=== PATIENT | female | born 1940 | race Caucasian/White ===

== ENCOUNTER 2022-12-29 13:21 | Emergency (ER) | payer MEDICARE, SELFPAY ==
[2022-12-29 13:32] VITALS: BP 143/92; PULSE 87; RESP 16; TEMP 36.8; O2SAT 100; BMI 20.4
--- NOTE | 2022-12-29 13:42 | DI.RAD.S_ITS ---
PROCEDURE: XR ACUTE ABDOMEN SERIES INDICATIONS: constipation TECHNIQUE: One view chest and two views of the abdomen were acquired. COMPARISON: None. FINDINGS: Surgical changes and devices: Surgical clips are seen projecting over the right upper quadrant. Chest: Lungs are clear. Heart size is normal. No pleural effusions. No pneumoperitoneum. Abdomen: Bowel gas pattern is normal. Mild colonic stool. Nonspecific 3 mm calcification projecting over the right abdomen, and a renal calculus is not excluded. Visualized solid organ contours appear normal. Bones: No suspicious bony lesions. Degenerative changes are noted in the spine. IMPRESSION: 1. Nonobstructed bowel gas pattern. No pneumoperitoneum. Mild colonic stool. 2. Right abdominal 3 mm calcification is noted of uncertain etiology. A small renal calculus is not excluded. Approved by: Edison Cooper M.D. on 12/29/2022 at 15:10
--- NOTE | 2022-12-29 16:21 | PC.NURSE ---
daughter called to reports her mom was changing her diarrhea brief in the bathroom and had a near syncopal event. pt was pale when I arrived. pt bought back and on stretcher with manager cardiac, vital signs.
--- NOTE | 2022-12-29 16:51 | DI.RAD.S_ITS ---
PROCEDURE: XR CHEST 1V INDICATIONS: chest pain TECHNIQUE: One view of the chest was acquired. COMPARISON: None. FINDINGS: Surgical changes and devices: None. Lungs and pleura: Lungs are clear. No pleural effusions or pneumothorax. Mediastinum: Mediastinal contours appear normal. Heart size is normal. Bones and chest wall: No suspicious bony lesions. Overlying soft tissues appear unremarkable. IMPRESSION: No acute process. Dictated by: Janett Burgess M.D. on 12/29/2022 at 17:51 Approved by: Janett Burgess M.D. on 12/29/2022 at 17:52
[2022-12-29 17:24] VITALS: BP 153/65; PULSE 78; RESP 23; O2SAT 98
[2022-12-29 17:31] VITALS: BP 136/78; PULSE 81; RESP 16; O2SAT 96
[2022-12-29 17:32] LABS: Add Manual Diff / Slide Review NO; Basophils Absolute Auto 0 /uL (0-100); Basophils Percent Auto 0.2 % (0-2); Eosinophils Absolute Auto 0 /uL (0-450); Eosinophils Percent Auto 0.2 % (2-4); Hematocrit 28.8 % (36-46); Hemoglobin 9.8 g/dL (12.0-16.0); INR 1.2 (0.9-1.3); Lymphocytes Absolute Auto 500 /uL (1100-4500); Lymphocytes Percent Auto 5.4 % (25-40); Mean Corpuscular Hemoglobin 41.7 PG (26-34); Mean Corpuscular Volume 122.9 fL (80-100); Monocytes Absolute Auto 500 /uL (0-900); Monocytes Percent Auto 4.8 % (3-14); Neutrophils Absolute Auto 8800 /uL (1500-7000); Neutrophils Percent Auto 89.4 % (50-75); Platelet Count 166 X10^3/uL (150-400); Prothrombin Time 13.7 SECONDS (10.1-12.7); Red Blood Cell Count 2.34 X10^6/uL (4.0-5.2); White Blood Cell Count 9.8 X10^3/uL (4.5-11.0)
[2022-12-29 17:35] LABS: PTT Partial Thromboplastin Tim 27 SECONDS (26-36)
[2022-12-29 17:36] LABS: Alanine Aminotransferase 14 IU/L (<35); Albumin 3.8 g/dL (3.5-5.0); Albumin Globulin Ratio 1.5 (1.0-2.8); Alkaline Phosphatase 76 U/L (38-126); Aspartate Aminotransferase 25 IU/L (14-36); BUN Creatinine Ratio 21.1 (6-22); Bilirubin Total 1.6 mg/dL (0.2-1.3); Blood Urea Nitrogen 12 mg/dL (7-17); Calcium 8.8 mg/dL (8.4-10.2); Carbon Dioxide 26 mmol/L (22-32); Chloride 102 mmol/L (98-107); Creatine Kinase 37 U/L (30-135); Estimated Glomerular Filt Rate > 60 mL/min (>60); Globulin 2.5 g/dL (1.7-4.1); Glucose 111 mg/dL (80-110); HEMOLYSIS < 15 (0-50); Lipase 81 U/L (23-300); Magnesium 1.7 mg/dL (1.6-2.3); Potassium 3.8 mmol/L (3.4-5.1); Sodium 133 mmol/L (137-145); Total Protein 6.3 g/dL (6.3-8.2)
[2022-12-29 17:43] LABS: Poikilocytosis 1+
[2022-12-29 17:44] LABS: Anisocytosis 2+; Macrocytosis 2+
[2022-12-29 17:46] LABS: Schistocytes 1+
[2022-12-29 17:48] LABS: Troponin I < 0.012 ng/mL (0.01-0.034)
[2022-12-29 18:00] VITALS: BP 152/67; PULSE 90; RESP 18; O2SAT 96
--- NOTE | 2022-12-29 18:09 | ED_ITS ---
HPI - Abdominal Pain General Chief Complaint: Abdominal Pain Stated Complaint: Thinks impaction Time Seen by Provider: 12/29/22 17:56 Source: patient Mode of arrival: Ambulatory History of Present Illness HPI narrative: Patient is a 82-year-old female who has some mild chronic constipation. She reports that she usually takes MiraLax daily for it however over the past 2-3 weeks she has not been as compliant as she normally is. She has been feeling like she has to have a bowel movement she took some Senokot she said suppository she is had some liquid stool coming around but she still feels like the area is hard pressure and impaction in her rectum. Today she vomited a couple of times as well. She denies any abdominal pain or cramping. She was in the restroom in the emergency department trying to go when she got very dizzy lightheaded and almost passed out however she did not. She did not hit her head or lose consciousness. She does take a baby aspirin daily. She reports that she has had multiple full diapers of liquid stool but she does not feel like her symptoms have improved she denies chest pain palpitations dizziness lightheadedness fever chills or other symptoms. Related Data Allergies Allergy/AdvReac Type Severity Reaction Status Date / Time azithromycin Allergy Verified 12/29/22 13:32 [From Zithromax Z-Anthony] clarithromycin [From Biaxin] Allergy Verified 12/29/22 13:32 Iodinated Contrast Media Allergy Verified 12/29/22 13:32 Penicillins Allergy Verified 12/29/22 13:32 Sulfa (Sulfonamide Allergy Verified 12/29/22 13:32 Antibiotics) Review of Systems Review of Systems ROS Unobtainable: All systems reviewed & are unremarkable except as noted in HPI and below Patient History Social History Smoking Status: Never smoker Smoking Status: Never smoker Substance Use Type: does not use Exam Initial Vital Signs Initial Vital Signs: Vital Signs Temperature 98.2 F 12/29/22 13:32 Pulse Rate 87 12/29/22 13:32 Respiratory Rate 16 12/29/22 13:32 Blood Pressure 143/92 H 12/29/22 13:32 Pulse Oximetry 100 12/29/22 13:32 Oxygen Delivery Method 12/29/22 13:32 GENERAL: Alert pleasant embarrassed 82-year-old female HEENT: Head atraumatic,EOMI, pupils reactive, face symmetric, moist mucous membranes CARDIOVASCULAR: Regular rate and rhythm without murmurs, rubs or gallops. RESPIRATORY: Breath sounds equal bilaterally, no wheezes rales or rhonchi. ABDOMEN: Soft, nontender. Normoactive bowel sounds all 4 quadrants. No guarding or rebound. RECTAL: Nonbloody stool in rectal vault : No CVA tenderness EXTREMITIES: Normal range of motion, no clubbing or edema. Neurovascularly intact NEUROLOGICAL: Alert and oriented x4. Moving all extremities SKIN: Warm, dry, no laceration, no petechiae, no rashes or lesions. Course Orders Ordered: ED Orders 12/29/22 13:42 XR acute abdomen series Stat 12/29/22 16:51 XR chest 1V Stat 12/29/22 17:11 Complete Blood Count AUTO DIFF Stat Comprehensive Metabolic Panel Stat Lipase Stat Magnesium Stat Partial Thromboplastin Time Stat Prothrombin Time INR Stat Troponin & CK Cardiac Panel Stat 12/29/22 17:12 EKG-12 Lead Stat 12/29/22 17:56 Lactate (Lactic Acid) Stat Procalcitonin Stat Vital Signs Vital signs: Vital Signs - 8 hr 12/29/22 13:32 12/29/22 17:24 Temperature 98.2 F Pulse Rate 87 78 Respiratory Rate 16 23 Blood Pressure 143/92 H 153/65 H Pulse Oximetry 100 98 Oxygen Delivery Method Room Air Room Air MDM - Abdominal Pain Lab Data 12/29/22 17:11 12/29/22 17:11 Labs: Lab Results 12/29/22 12/29/22 12/29/22 Range/Units 17:11 17:11 17:11 WBC 9.8 (4.5-11.0) X10^3/uL RBC 2.34 L (4.0-5.2) X10^6/uL Hgb 9.8 L (12.0-16.0) g/dL Hct 28.8 L (36-46) % MCV 122.9 H (80-100) fL MCH 41.7 H (26-34) PG MCHC 34.0 (30-36) % RDW 19.0 H (11.6-14.8) % Plt Count 166 (150-400) X10^3/uL Neut % (Auto) 89.4 H (50-75) % Lymph % (Auto) 5.4 L (25-40) % [place] % (Auto) 4.8 (3-14) % Eos % (Auto) 0.2 L (2-4) % Baso % (Auto) 0.2 (0-2) % Neut # (Auto) 8800 H (5492-9979) /uL Lymph # (Auto) 500 L (1388-4122) /uL [place] # (Auto) 500 (0-900) /uL Eos # (Auto) 0 (0-450) /uL Baso # (Auto) 0 (0-100) /uL RBC Morphology See below Poikilocytosis 1+ H Anisocytosis 2+ H Macrocytosis 2+ H Schistocytes 1+ H PT 13.7 H (10.1-12.7) SECONDS INR 1.2 (0.9-1.3) APTT 27 (26-36) SECONDS Sodium 133 L (137-145) mmol/L Potassium 3.8 (3.4-5.1) mmol/L Chloride 102 (98-107) mmol/L Carbon Dioxide 26 (22-32) mmol/L BUN 12 (7-17) mg/dL Creatinine 0.57 (0.52-1.04) mg/dL Estimated GFR > 60 (>60) mL/min BUN/Creatinine Ratio 21.1 (6-22) Glucose 111 H (80-110) mg/dL Lactate (0.7-2.1) mmol/L Calcium 8.8 (8.4-10.2) mg/dL Magnesium 1.7 (1.6-2.3) mg/dL Total Bilirubin 1.6 H (0.2-1.3) mg/dL AST 25 (14-36) IU/L ALT 14 (<35) IU/L Alkaline Phosphatase 76 (38-126) U/L Total Creatine Kinase 37 (30-135) U/L CK-MB (CK-2) TNP CK-MB (CK-2) Rel Index TNP Troponin I < 0.012 (0.01-0.034) ng/mL Total Protein 6.3 (6.3-8.2) g/dL Albumin 3.8 (3.5-5.0) g/dL Globulin 2.5 (1.7-4.1) g/dL Albumin/Globulin Ratio 1.5 (1.0-2.8) Lipase 81 (23-300) U/L Procalcitonin (<0.5) ng/mL 12/29/22 12/29/22 Range/Units 17:11 17:11 WBC (4.5-11.0) X10^3/uL RBC (4.0-5.2) X10^6/uL Hgb (12.0-16.0) g/dL Hct (36-46) % MCV (80-100) fL MCH (26-34) PG MCHC (30-36) % RDW (11.6-14.8) % Plt Count (150-400) X10^3/uL Neut % (Auto) (50-75) % Lymph % (Auto) (25-40) % [place] % (Auto) (3-14) % Eos % (Auto) (2-4) % Baso % (Auto) (0-2) % Neut # (Auto) (2395-6118) /uL Lymph # (Auto) (3008-1737) /uL [place] # (Auto) (0-900) /uL Eos # (Auto) (0-450) /uL Baso # (Auto) (0-100) /uL RBC Morphology Poikilocytosis Anisocytosis Macrocytosis Schistocytes PT (10.1-12.7) SECONDS INR (0.9-1.3) APTT (26-36) SECONDS Sodium (137-145) mmol/L Potassium (3.4-5.1) mmol/L Chloride (98-107) mmol/L Carbon Dioxide (22-32) mmol/L BUN (7-17) mg/dL Creatinine (0.52-1.04) mg/dL Estimated GFR (>60) mL/min BUN/Creatinine Ratio (6-22) Glucose (80-110) mg/dL Lactate 1.4 (0.7-2.1) mmol/L Calcium (8.4-10.2) mg/dL Magnesium (1.6-2.3) mg/dL Total Bilirubin (0.2-1.3) mg/dL AST (14-36) IU/L ALT (<35) IU/L Alkaline Phosphatase (38-126) U/L Total Creatine Kinase (30-135) U/L CK-MB (CK-2) CK-MB (CK-2) Rel Index Troponin I (0.01-0.034) ng/mL Total Protein (6.3-8.2) g/dL Albumin (3.5-5.0) g/dL Globulin (1.7-4.1) g/dL Albumin/Globulin Ratio (1.0-2.8) Lipase (23-300) U/L Procalcitonin 0.05 (<0.5) ng/mL Imaging Data Abdominal x-ray: Radiologist's Impression: [place] [address] XRay Report Signed Patient: Mima Escalante MR#: [id number] : 1940 Acct:[id number] Age/Sex: 82 / F Date of Service: 12/29/22 Loc: ED Accession Number: [id number] ?? Procedure: XR acute abdomen series Ordering Provider: Jose Medellin MD PROCEDURE:? XR ACUTE ABDOMEN SERIES ? INDICATIONS:? constipation ? TECHNIQUE:? One view chest and two views of the abdomen were acquired.? ? COMPARISON:? None. ? FINDINGS:? ? Surgical changes and devices:? Surgical clips are seen projecting over the right upper quadrant. ? Chest:? Lungs are clear.? Heart size is normal.? No pleural effusions.? No pneumoperitoneum.? ? Abdomen:? Bowel gas pattern is normal.? Mild colonic stool.? Nonspecific 3 mm calcification projecting over the right abdomen, and a renal calculus is not excluded.? Visualized solid organ contours appear normal.? ? Bones:? No suspicious bony lesions.? Degenerative changes are noted in the spine. ? IMPRESSION:? 1. Nonobstructed bowel gas pattern.? No pneumoperitoneum.? Mild colonic stool. 2. Right abdominal 3 mm calcification is noted of uncertain etiology.? A small renal calculus is not excluded. ? ? ? Approved by: Edison Cooper M.D. on 12/29/2022 at 15:10? Chest x-ray: Radiologist's Impression: Signed Patient: Mima Escalante MR#: [id number] : 1940 Acct:[id number] Age/Sex: 82 / F Date of Service: 12/29/22 Loc: ED Accession Number: [id number] ?? Procedure: XR chest 1V Ordering Provider: Jose Medellin MD PROCEDURE:? XR CHEST 1V ? INDICATIONS:? chest pain ? TECHNIQUE:? One view of the chest was acquired.? ? COMPARISON:? None. ? FINDINGS:? ? Surgical changes and devices:? None.? ? Lungs and pleura:? Lungs are clear.? No pleural effusions or pneumothorax.? ? Mediastinum:? Mediastinal contours appear normal.? Heart size is normal.? ? Bones and chest wall:? No suspicious bony lesions.? Overlying soft tissues appear unremarkable.? ? IMPRESSION:? No acute process. ? ? Dictated by: Janett Burgess M.D. on 12/29/2022 at 17:51 ? ? Approved by: Janett Burgess M.D. on 12/29/2022 at 17:52 ? ECG Data Interpretation: Sinus rhythm rate 79 VA 134 QRS 74 QTC 460 frequent PVCs noted with ischemic changes no ST elevation T-wave inversions no priors to compare MDM Narrative Medical decision making narrative: Patient 82-year-old female history of mild chronic constipation presenting with fecal impaction. She tried multiple things at home she did have some liquid stool. X-ray does not show large amount of stool bowel obstruction or pneumoperitoneum. Exam is positive for fecal impaction and constipation. Patient was manually disimpacted by myself and had a large successful bowel movement. Feeling significantly better. She did have a brief near syncopal episode in a emergency department. EKG is reassuring she is on the monitor. Possibly secondary to vasovagal and bearing down. Blood work does reveal that she is mildly anemic with a hemoglobin of 9.8 and hematocrit 20.88 with MCV of 122.9. Electrolytes and creatinine are overall reassuring. Lactate of 0.4. Slight elevation in bilirubin 1.6 but no other evidence sepsis and she is no ri ght upper quadrant pain. At this time patient requires no further intervention. Diagnosis rectal impaction Differential diagnosis: Rectal impaction bowel obstruction ischemic bowel, gastroenteritis diverticulitis pyelonephritis Discharge Plan Departure Patient Disposition: Home Clinical Impression: Fecal impaction in rectum, Constipation Instructions: Constipation Activity Restrictions/Additional Instructions: *You have been diagnosed with rectal impaction, constipation *What to do: At this time increase water and fiber intake. Resume your MiraLax daily. *Continue to take medications as directed *Follow up with your primary care provider in 2-3 days or call [phone] *Return to ER if you should have increased abdominal pain rectal pain vomiting or any new, worsening or concerning symptoms Stand Alone Forms: Patient Portal/API
[2022-12-29 18:12] LABS: Lactate (Lactic Acid) 1.4 mmol/L (0.7-2.1)
[2022-12-29 18:30] LABS: Procalcitonin 0.05 ng/mL (<0.5)
== END 2022-12-29 18:44 | disposition home or self-care (01) ==
PROVIDERS: Emergency Medicine; Emergency Provider Emergency Medicine
DX: K59.09 Other constipation (principal); R07.9 Chest pain, unspecified
CPT/HCPCS: 36415; 71045; 74022; 80053; 82550; 83605; 83690; 83735; 84145; 84484; 85025; 85610; 85730; 93005; 99284

== ENCOUNTER → 2023-03-28 11:10 | Outpatient (CLI) | payer MEDICARE, SELFPAY ==
[2023-03-28 12:35] LABS: Add Manual Diff / Slide Review NO; Basophils Absolute Auto 0 /uL (0-100); Basophils Percent Auto 0.5 % (0-2); Eosinophils Absolute Auto 100 /uL (0-450); Eosinophils Percent Auto 1.6 % (2-4); Hematocrit 28.3 % (36-46); Hemoglobin 9.6 g/dL (12.0-16.0); Lymphocytes Absolute Auto 800 /uL (1100-4500); Lymphocytes Percent Auto 11.1 % (25-40); Mean Corpuscular Hemoglobin 39.8 PG (26-34); Monocytes Absolute Auto 600 /uL (0-900); Monocytes Percent Auto 8.2 % (3-14); Neutrophils Absolute Auto 6000 /uL (1500-7000); Neutrophils Percent Auto 78.6 % (50-75); Platelet Count 378 X10^3/uL (150-400); Red Blood Cell Count 2.42 X10^6/uL (4.0-5.2); Red Cell Distribution Width 21.9 % (11.6-14.8); White Blood Cell Count 7.7 X10^3/uL (4.5-11.0)
[2023-03-28 13:25] LABS: Macrocytosis 2+; Schistocytes 1+
[2023-03-29 16:08] LABS: Vitamin B12 < 159 pg/mL (239-931)
== END ==
PROVIDERS: PCP Internal Medicine Endocrinology, Diabetes & Metabolism; Referring Provider Internal Medicine Endocrinology, Diabetes & Metabolism; Visit Provider Internal Medicine Endocrinology, Diabetes & Metabolism
DX: E53.8 Deficiency of other specified B group vitamins (principal)
CPT/HCPCS: 36415; 82607; 85025

== ENCOUNTER → 2023-04-15 09:10 | Outpatient (CLI) | payer MEDICARE, SELFPAY ==
[2023-04-15 10:15] LABS: Add Manual Diff / Slide Review NO; Basophils Absolute Auto 100 /uL (0-100); Basophils Percent Auto 0.8 % (0-2); Eosinophils Absolute Auto 200 /uL (0-450); Eosinophils Percent Auto 2.5 % (2-4); Hematocrit 33.7 % (36-46); Lymphocytes Absolute Auto 1100 /uL (1100-4500); Lymphocytes Percent Auto 13.2 % (25-40); Mean Corpuscular HGB Conc 32.7 % (30-36); Mean Corpuscular Hemoglobin 34.8 PG (26-34); Mean Corpuscular Volume 106.6 fL (80-100); Monocytes Absolute Auto 600 /uL (0-900); Monocytes Percent Auto 7.7 % (3-14); Neutrophils Absolute Auto 6400 /uL (1500-7000); Neutrophils Percent Auto 75.8 % (50-75); Platelet Count 227 X10^3/uL (150-400); Red Blood Cell Count 3.16 X10^6/uL (4.0-5.2); White Blood Cell Count 8.5 X10^3/uL (4.5-11.0)
[2023-04-15 10:47] LABS: Anisocytosis 2+
[2023-04-15 10:48] LABS: Macrocytosis 1+
[2023-04-15 11:24] LABS: Vitamin B12 < 159 pg/mL (239-931)
== END ==
PROVIDERS: PCP Internal Medicine Endocrinology, Diabetes & Metabolism; Referring Provider Internal Medicine Endocrinology, Diabetes & Metabolism; Visit Provider Internal Medicine Endocrinology, Diabetes & Metabolism
DX: E53.8 Deficiency of other specified B group vitamins (principal)
CPT/HCPCS: 36415; 82607; 85025

== ENCOUNTER → 2023-05-16 12:56 | Outpatient (CLI) | payer MEDICARE, SELFPAY ==
[2023-05-16 16:22] LABS: Add Manual Diff / Slide Review NO; Basophils Absolute Auto 100 /uL (0-100); Basophils Percent Auto 0.6 % (0-2); Eosinophils Absolute Auto 200 /uL (0-450); Hematocrit 37.8 % (36-46); Hemoglobin 12.2 g/dL (12.0-16.0); Lymphocytes Absolute Auto 1700 /uL (1100-4500); Lymphocytes Percent Auto 16.1 % (25-40); Mean Corpuscular HGB Conc 32.4 % (30-36); Mean Corpuscular Hemoglobin 30.7 PG (26-34); Mean Corpuscular Volume 94.9 fL (80-100); Monocytes Absolute Auto 900 /uL (0-900); Monocytes Percent Auto 8.2 % (3-14); Neutrophils Absolute Auto 7600 /uL (1500-7000); Neutrophils Percent Auto 73.1 % (50-75); Platelet Count 277 X10^3/uL (150-400); Red Blood Cell Count 3.98 X10^6/uL (4.0-5.2); Red Cell Distribution Width 19.7 % (11.6-14.8); White Blood Cell Count 10.3 X10^3/uL (4.5-11.0)
[2023-05-16 17:43] LABS: Vitamin B12 < 159 pg/mL (239-931)
== END ==
PROVIDERS: PCP Internal Medicine Endocrinology, Diabetes & Metabolism; Referring Provider Internal Medicine Endocrinology, Diabetes & Metabolism; Visit Provider Internal Medicine Endocrinology, Diabetes & Metabolism
DX: E53.8 Deficiency of other specified B group vitamins (principal)
CPT/HCPCS: 36415; 82607; 85025

== ENCOUNTER 2023-05-27 13:23 | Emergency (ER) | payer MEDICARE, SELFPAY ==
[2023-05-27] VITALS (15 sets, daily range): BP systolic 151–192; BP diastolic 64–88; PULSE 67–94; RESP 16–29; TEMP 36.2; O2SAT 93–98; BMI 20.9
--- NOTE | 2023-05-27 13:45 | DI.RAD.S_ITS ---
PROCEDURE: XR CHEST 1V INDICATIONS: chest pain TECHNIQUE: One view of the chest was acquired. COMPARISON: [facility], CR, XR CHEST 1V, 12/29/2022, 16:51. FINDINGS: Surgical changes and devices: None. Lungs and pleura: Lungs are clear. No pleural effusions or pneumothorax. Mediastinum: Mediastinal contours appear normal. Heart size is normal. Bones and chest wall: No suspicious bony lesions. Overlying soft tissues appear unremarkable. IMPRESSION: No evidence acute pulmonary process. Dictated by: César Pavon M.D. on 05/27/2023 at 14:32 Approved by: César Pavon M.D. on 05/27/2023 at 14:34
--- NOTE | 2023-05-27 14:10 | PC.NURSE ---
Pt and daughter report that pt fell this morning getting out of bed. Pt's daughter reports that pt told her pt was paralyzed after fall. With clarification, daughter stated that pt was conscious and able to move, but not responding to questions for an unknown period of time. Pt and family deny LOC, did not hit head.
--- NOTE | 2023-05-27 14:12 | ED.WEAKNESS ---
HPI - Weakness General Chief complaint: Weakness Stated complaint: poss stroke Time Seen by Provider: 05/27/23 14:09 Source: patient Mode of arrival: Wheelchair History of Present Illness HPI Narrative: Patient is a 82-year-old female complicated history of Bobby's disease with an adrenal removal, pheochromocytoma, intracranial aneurysm with coil and repair, pernicious anemia with B12 deficiency taking supplements presenting today with increasing weakness. She reports that she is been feeling quite herself over last 1 week just generalized weakness. No nausea vomiting chest pain cough painful frequent urination or other symptoms. Today she got out of bed fell to the ground and was unable to get up. Whenever she walks she leans to the left she has had difficulty walking secondary to the pernicious anemia. That is being monitored by her gallery host at [facility]. She denies any other symptoms. She is here with her daughter at bedside Related Data Allergies Allergy/AdvReac Type Severity Reaction Status Date / Time azithromycin Allergy Verified 05/27/23 13:31 [From Zithromax Z-Anthony] clarithromycin [From Biaxin] Allergy Verified 05/27/23 13:31 Iodinated Contrast Media Allergy Verified 05/27/23 13:31 Penicillins Allergy Verified 05/27/23 13:31 Sulfa (Sulfonamide Allergy Verified 05/27/23 13:31 Antibiotics) Review of Systems Review of Systems ROS Unobtainable: All systems reviewed & are unremarkable except as noted in HPI and below Patient History Social History Smoking Status: Never smoker Smoking Status: Never smoker Substance Use Type: does not use Exam Initial Vital Signs Initial Vital Signs: Vital Signs Temperature 97.1 F L 05/27/23 13:31 Pulse Rate 67 05/27/23 13:31 Respiratory Rate 16 05/27/23 13:31 Blood Pressure 164/70 H 05/27/23 13:31 Pulse Oximetry 96 05/27/23 13:31 Oxygen Delivery Method Room Air 05/27/23 13:31 GENERAL: Alert weak 82-year-old female and in no acute distress. HEENT: Head atraumatic,EOMI, pupils reactive, face symmetric, moist mucous membranes CARDIOVASCULAR: Regular rate and rhythm without murmurs, rubs or gallops. RESPIRATORY: Breath sounds equal bilaterally, no wheezes rales or rhonchi. ABDOMEN: Soft, nontender. Normoactive bowel sounds all 4 quadrants. No guarding or rebound. EXTREMITIES: Normal range of motion, no clubbing or edema. Neurovascularly intact NEUROLOGICAL: Alert and oriented x4.Normal gait and speech. Cranial nerves II through XII grossly intact. Good bkwumy-eo-[id number], good oaaf-ll-aoek, strength equal bilaterally, no dysarthria or aphasia, sensation in tact to soft touch bilaterally, no visual changes, no facial droop SKIN: Warm, dry, no laceration, no petechiae, no rashes or lesions. Course Orders Ordered: ED Orders 05/27/23 13:45 XR chest 1V Stat 05/27/23 14:01 EKG-12 Lead Stat 05/27/23 14:10 Complete Blood Count AUTO DIFF Stat Comprehensive Metabolic Panel Stat Lactate (Lactic Acid) Stat Lipase Stat Magnesium Stat PTT Partial Thromboplastin Navi Stat Procalcitonin Stat Prothrombin Time INR Stat Troponin & CK Cardiac Panel Stat 05/27/23 14:36 Covid-19 + FLU A/B + RSV - PCR Stat 05/27/23 15:54 CT head/brain wo con Stat 05/27/23 15:58 XR hip w pel if done LT 2V Stat XR shoulder LT min 2V Stat Discontinued Medications Diphenhydramine HCl (Diphenhydramine 50 Mg/Ml Vial) 25 mg IV NOW ONE Stop: 05/27/23 14:23 Methylprednisolone (Methylprednisolone 125 Mg/2 Ml Vial) 125 mg IV NOW ONE Stop: 05/27/23 14:23 Vital Signs Vital signs: Vital Signs - 8 hr 05/27/23 13:31 05/27/23 13:52 05/27/23 13:54 Temperature 97.1 F L Pulse Rate 67 86 Respiratory Rate 16 Blood Pressure 164/70 H 159/64 H Pulse Oximetry 96 94 Oxygen Delivery Method Room Air 05/27/23 13:54 05/27/23 14:00 05/27/23 14:06 Temperature Pulse Rate 91 H 94 H Respiratory Rate 20 Blood Pressure 151/64 H Pulse Oximetry 93 94 Oxygen Delivery Method 05/27/23 14:06 05/27/23 14:30 05/27/23 14:30 Temperature Pulse Rate 91 H 87 Respiratory Rate 29 H 23 Blood Pressure 174/71 H Pulse Oximetry 95 96 Oxygen Delivery Method 05/27/23 15:00 05/27/23 15:00 05/27/23 15:30 Temperature Pulse Rate 72 73 Respiratory Rate 18 Blood Pressure 161/70 H Pulse Oximetry 94 98 Oxygen Delivery Method 05/27/23 15:31 05/27/23 15:31 05/27/23 16:05 Temperature Pulse Rate 73 75 Respiratory Rate 19 Blood Pressure 169/73 H Pulse Oximetry 97 Oxygen Delivery Method 05/27/23 16:06 05/27/23 16:06 05/27/23 16:48 Temperature Pulse Rate 76 68 Respiratory Rate Blood Pressure 192/77 H Pulse Oximetry 95 94 Oxygen Delivery Method 05/27/23 17:00 05/27/23 17:30 05/27/23 17:43 Temperature Pulse Rate 71 72 Respiratory Rate 22 Blood Pressure 188/88 H Pulse Oximetry 98 98 Oxygen Delivery Method 05/27/23 17:43 Temperature Pulse Rate 72 Respiratory Rate 22 Blood Pressure Pulse Oximetry 98 Oxygen Delivery Method MDM - Weakness Lab Data 05/27/23 14:10 05/27/23 14:10 Labs: Lab Results 05/27/23 05/27/23 05/27/23 Range/Units 14:10 14:10 14:10 WBC 8.5 (4.5-11.0) X10^3/uL RBC 3.93 L (4.0-5.2) X10^6/uL Hgb 11.8 L (12.0-16.0) g/dL Hct 36.0 (36-46) % MCV 91.5 (80-100) fL MCH 29.9 (26-34) PG MCHC 32.7 (30-36) % RDW 17.6 H (11.6-14.8) % Plt Count 232 (150-400) X10^3/uL Neut % (Auto) 81.3 H (50-75) % Lymph % (Auto) 10.6 L (25-40) % [place] % (Auto) 6.4 (3-14) % Eos % (Auto) 1.2 L (2-4) % Baso % (Auto) 0.5 (0-2) % Neut # (Auto) 6900 (6948-8581) /uL Lymph # (Auto) 900 L (1777-7663) /uL [place] # (Auto) 500 (0-900) /uL Eos # (Auto) 100 (0-450) /uL Baso # (Auto) 0 (0-100) /uL PT 11.9 (10.1-12.7) SECONDS INR 1.0 (0.9-1.3) APTT 29 (26-36) SECONDS Sodium 137 (137-145) mmol/L Potassium 4.0 (3.4-5.1) mmol/L Chloride 104 (98-107) mmol/L Carbon Dioxide 30 (22-32) mmol/L BUN 16 (7-17) mg/dL Creatinine 0.66 (0.52-1.04) mg/dL Estimated GFR > 60 (>60) mL/min BUN/Creatinine Ratio 24.2 H (6-22) Glucose 98 (80-110) mg/dL Lactate (0.7-2.1) mmol/L Calcium 9.0 (8.4-10.2) mg/dL Magnesium 1.9 (1.6-2.3) mg/dL Total Bilirubin 0.5 (0.2-1.3) mg/dL AST 33 (14-36) IU/L ALT 21 (<35) IU/L Alkaline Phosphatase 78 (38-126) U/L Total Creatine Kinase 33 (30-135) U/L Troponin I 0.013 (0.01-0.034) ng/mL Total Protein 6.5 (6.3-8.2) g/dL Albumin 3.7 (3.5-5.0) g/dL Globulin 2.8 (1.7-4.1) g/dL Albumin/Globulin Ratio 1.3 (1.0-2.8) Lipase 263 (23-300) U/L Procalcitonin (<0.5) ng/mL SARS-CoV-2 (PCR) (Negative) Influenza A (RT-PCR) (NEGATIVE) Influenza B (RT-PCR) (NEGATIVE) RSV (PCR) (Negative) 05/27/23 05/27/23 05/27/23 Range/Units 14:10 14:10 14:36 WBC (4.5-11.0) X10^3/uL RBC (4.0-5.2) X10^6/uL Hgb (12.0-16.0) g/dL Hct (36-46) % MCV (80-100) fL MCH (26-34) PG MCHC (30-36) % RDW (11.6-14.8) % Plt Count (150-400) X10^3/uL Neut % (Auto) (50-75) % Lymph % (Auto) (25-40) % [place] % (Auto) (3-14) % Eos % (Auto) (2-4) % Baso % (Auto) (0-2) % Neut # (Auto) (3362-4154) /uL Lymph # (Auto) (2117-6076) /uL [place] # (Auto) (0-900) /uL Eos # (Auto) (0-450) /uL Baso # (Auto) (0-100) /uL PT (10.1-12.7) SECONDS INR (0.9-1.3) APTT (26-36) SECONDS Sodium (137-145) mmol/L Potassium (3.4-5.1) mmol/L Chloride (98-107) mmol/L Carbon Dioxide (22-32) mmol/L BUN (7-17) mg/dL Creatinine (0.52-1.04) mg/dL Estimated GFR (>60) mL/min BUN/Creatinine Ratio (6-22) Glucose (80-110) mg/dL Lactate 1.1 (0.7-2.1) mmol/L Calcium (8.4-10.2) mg/dL Magnesium (1.6-2.3) mg/dL Total Bilirubin (0.2-1.3) mg/dL AST (14-36) IU/L ALT (<35) IU/L Alkaline Phosphatase (38-126) U/L Total Creatine Kinase (30-135) U/L Troponin I (0.01-0.034) ng/mL Total Protein (6.3-8.2) g/dL Albumin (3.5-5.0) g/dL Globulin (1.7-4.1) g/dL Albumin/Globulin Ratio (1.0-2.8) Lipase (23-300) U/L Procalcitonin < 0.03 (<0.5) ng/mL SARS-CoV-2 (PCR) Negative (Negative) Influenza A (RT-PCR) Flu a negative (NEGATIVE) Influenza B (RT-PCR) Flu b negative (NEGATIVE) RSV (PCR) Negative (Negative) Urine Dip Bedside Urine Glucose Negative Bedside Urine Bilirubin - Negative Bedside Urine Ketone - Negative Urine Specific [place] 1.010 Bedside Urine Occult Blood - Negative Bedside Urine pH 7.0 Bedside Urine Protein - Negative Bedside Urine Urobilinogen - Negative Bedside Urine Nitrite - Negative Bedside Urine Leukocytes - Negative Esterase Imaging Data Chest x-ray: Radiologist Impression: PROCEDURE:? XR CHEST 1V ? INDICATIONS:? chest pain ? TECHNIQUE:? One view of the chest was acquired.? ? COMPARISON:? [facility], , XR CHEST 1V, 12/29/2022, 16:51. ? FINDINGS:? ? Surgical changes and devices:? None.? ? Lungs and pleura:? Lungs are clear.? No pleural effusions or pneumothorax.? ? Mediastinum:? Mediastinal contours appear normal.? Heart size is normal.? ? Bones and chest wall:? No suspicious bony lesions.? Overlying soft tissues appear unremarkable.? ? IMPRESSION:? No evidence acute pulmonary process. ? ? ? Dictated by: César Pavon M.D. on 05/27/2023 at 14:32 ? ? CT scan - head: Radiologist Impression: PROCEDURE:? CT HEAD/BRAIN WO CON ? INDICATIONS:? Aneurysm ? TECHNIQUE:? Noncontrast 4.5 mm thick angled axial sections acquired from the foramen magnum to the vertex, with coronal and sagittal reformats.? For radiation dose reduction, the following was used:? automated exposure control, adjustment of mA and/or kV according to patient size.? ? COMPARISON:? None. ? FINDINGS:? Image quality:? Excellent.? ? CSF spaces:? Basal cisterns are patent.? No extra-axial fluid collections.? The ventricles are symmetric in size and shape.? ? Brain:? No intracranial bleeds or masses.? There is cerebral volume loss for age, with resultant ventricular and sulcal prominence.? There are mild, age-appropriate periventricular and deep white matter chronic small vessel ischemic changes.? There is intracranial internal carotid artery atherosclerosis.? ? Skull and face:? Calvarium and visualized facial bones appear intact, without suspicious lesions.? ? Sinuses:? Visualized sinuses and mastoids are clear.? ? IMPRESSION:? ? 1. No acute intracranial process. ? 2. Age-appropriate volume loss and small vessel ischemic change. ? ? Dictated by: César Pavon M.D. on 05/27/2023 at 16:45 ? Extremity x-ray #1: Radiologist Impression: PROCEDURE:? XR HIP W PEL IF DONE LT 2V ? INDICATIONS:? fall pain ? TECHNIQUE:? AP pelvis with lateral view(s) of the left hip(s).? ? COMPARISON:? None. ? FINDINGS:? ? Bones:? No fractures or dislocations.? Pelvic ring appears intact.? No suspicious bony lesions.? ? Soft tissues:? The visualized bowel gas pattern is normal.? No suspicious soft tissue calcifications.? ? ? IMPRESSION:? No acute osseous abnormality identified. ? If high clinical suspicion for occult fracture, consider CT bony pelvis. ? ? Dictated by: Ronan Molina M.D. on 05/27/2023 at 17:00 ? ? Approved by: Ronan Molina M.D. on 05/27/2023 at 17:01 ? Extremity x-ray #2: Radiologist Impression: PROCEDURE:? XR SHOULDER LT MIN 2V ? INDICATIONS:? fall pain ? TECHNIQUE:? 3 views of the shoulder were acquired.? ? COMPARISON:? None. ? FINDINGS:? ? Bones:? No fractures or dislocations.? No suspicious bony lesions.? Mild degenerative changes.? Visualized ribs appear intact.? ? Soft tissues:? No suspicious soft tissue calcifications.? ? IMPRESSION:? No acute osseous abnormality. ? ? Dictated by: Ronan Molina M.D. on 05/27/2023 at 16:58 ? ? ECG Data Interpretation: Sinus rhythm rate 94 PA interval 132 QTC [address] changes MDM Narrative Medical decision making narrative: Patient 82-year-old female presents with multiple comorbidities. Though she fell out of bed today there is questionable if she has left-sided weakness which is old or new. Thought to have an aneurysm which apparently is monitored with MRAs. However patient refused a CTA with contrast. Reports an allergy which is severe nausea was offered prophylactic medication Benadryl and Solu-Medrol however she refused did not want the CT. I have explained to both patient and daughter that I can not assess for the aneurysm without IV contrast what they were adamant she could not have contrast. It did not family she had an anaphylactic reaction. She certainly is not having signs or symptoms of worsening aneurysm she is no headache nausea vomiting numbness tingling. She has ongoing weakness for possibly from pernicious anemia B12 level is pending. Other blood work is reassuring without any clinical significant abnormality. No leukocytosis anemia electrolyte abnormality [place] or elevated troponin. She ambulated with minimal assistance. At this time both patient daughter and I agree that she can go home and return as needed. Discharge Plan Departure Patient Disposition: Home Clinical Impression: Fall Instructions: How to Prevent Falls Activity Restrictions/Additional Instructions: *You have been diagnosed with fall *What to do: We were not able to assess her aneurysm today. Please continue to follow with your doctors. I strongly recommend that you use a walker so that you do not fall and cause injury. *Continue to take medications as directed *Follow up with your primary care provider in 2-3 days or call [phone] *Return to ER if you should have recurrent fall dizziness lightheadedness confusion [or] any new, worsening or concerning symptoms Referrals: Jose Francisco Booth MD [Primary Care Provider] - Stand Alone Forms: Patient Portal/API
--- NOTE | 2023-05-27 14:47 | PC.NURSE ---
pt refused premedications for ct scan today. Dr. Pinto aware.
--- NOTE | 2023-05-27 14:49 | PC.NURSE ---
Pt refuses medication for IV contrast reaction prophylaxis and states she will not accept any contrast.
[2023-05-27 15:01] LABS: Add Manual Diff / Slide Review NO; Basophils Absolute Auto 0 /uL (0-100); Basophils Percent Auto 0.5 % (0-2); Eosinophils Absolute Auto 100 /uL (0-450); Eosinophils Percent Auto 1.2 % (2-4); Hemoglobin 11.8 g/dL (12.0-16.0); Lymphocytes Absolute Auto 900 /uL (1100-4500); Lymphocytes Percent Auto 10.6 % (25-40); Mean Corpuscular HGB Conc 32.7 % (30-36); Mean Corpuscular Hemoglobin 29.9 PG (26-34); Mean Corpuscular Volume 91.5 fL (80-100); Monocytes Absolute Auto 500 /uL (0-900); Monocytes Percent Auto 6.4 % (3-14); Neutrophils Absolute Auto 6900 /uL (1500-7000); Neutrophils Percent Auto 81.3 % (50-75); Platelet Count 232 X10^3/uL (150-400); Red Blood Cell Count 3.93 X10^6/uL (4.0-5.2); Red Cell Distribution Width 17.6 % (11.6-14.8); White Blood Cell Count 8.5 X10^3/uL (4.5-11.0)
[2023-05-27 15:08] LABS: Prothrombin Time 11.9 SECONDS (10.1-12.7)
[2023-05-27 15:11] LABS: PTT Partial Thromboplastin Tim 29 SECONDS (26-36)
[2023-05-27 15:12] LABS: Lactate (Lactic Acid) 1.1 mmol/L (0.7-2.1)
[2023-05-27 15:14] LABS: Alanine Aminotransferase 21 IU/L (<35); Albumin 3.7 g/dL (3.5-5.0); Albumin Globulin Ratio 1.3 (1.0-2.8); Alkaline Phosphatase 78 U/L (38-126); Aspartate Aminotransferase 33 IU/L (14-36); BUN Creatinine Ratio 24.2 (6-22); Bilirubin Total 0.5 mg/dL (0.2-1.3); Blood Urea Nitrogen 16 mg/dL (7-17); Carbon Dioxide 30 mmol/L (22-32); Chloride 104 mmol/L (98-107); Creatine Kinase 33 U/L (30-135); Estimated Glomerular Filt Rate > 60 mL/min (>60); Globulin 2.8 g/dL (1.7-4.1); Glucose 98 mg/dL (80-110); HEMOLYSIS 31 (0-50); Lipase 263 U/L (23-300); Magnesium 1.9 mg/dL (1.6-2.3); Sodium 137 mmol/L (137-145); Total Protein 6.5 g/dL (6.3-8.2)
[2023-05-27 15:28] LABS: Troponin I 0.013 ng/mL (0.01-0.034)
[2023-05-27 15:31] LABS: Influenza A - CEPHEID Flu A NEGATIVE (NEGATIVE); Influenza B - CEPHEID Flu B NEGATIVE (NEGATIVE); Respiratory Syncytial Virus Negative (Negative)
[2023-05-27 15:33] LABS: Procalcitonin < 0.03 ng/mL (<0.5)
[2023-05-27 15:44] LABS: COVID-19 CEPHEID 4-PLEX PCR Negative (Negative)
--- NOTE | 2023-05-27 15:54 | DI.CT.S_ITS ---
PROCEDURE: CT HEAD/BRAIN WO CON INDICATIONS: Aneurysm TECHNIQUE: Noncontrast 4.5 mm thick angled axial sections acquired from the foramen magnum to the vertex, with coronal and sagittal reformats. For radiation dose reduction, the following was used: automated exposure control, adjustment of mA and/or kV according to patient size. COMPARISON: None. FINDINGS: Image quality: Excellent. CSF spaces: Basal cisterns are patent. No extra-axial fluid collections. The ventricles are symmetric in size and shape. Brain: No intracranial bleeds or masses. There is cerebral volume loss for age, with resultant ventricular and sulcal prominence. There are mild, age-appropriate periventricular and deep white matter chronic small vessel ischemic changes. There is intracranial internal carotid artery atherosclerosis. Skull and face: Calvarium and visualized facial bones appear intact, without suspicious lesions. Sinuses: Visualized sinuses and mastoids are clear. IMPRESSION: 1. No acute intracranial process. 2. Age-appropriate volume loss and small vessel ischemic change. Dictated by: César Pavon M.D. on 05/27/2023 at 16:45 Approved by: César Pavon M.D. on 05/27/2023 at 16:46
--- NOTE | 2023-05-27 15:58 | DI.RAD.S_ITS ---
PROCEDURE: XR SHOULDER LT MIN 2V INDICATIONS: fall pain TECHNIQUE: 3 views of the shoulder were acquired. COMPARISON: None. FINDINGS: Bones: No fractures or dislocations. No suspicious bony lesions. Mild degenerative changes. Visualized ribs appear intact. Soft tissues: No suspicious soft tissue calcifications. IMPRESSION: No acute osseous abnormality. Dictated by: Ronan Molina M.D. on 05/27/2023 at 16:58 Approved by: Ronan Molina M.D. on 05/27/2023 at 16:59
--- NOTE | 2023-05-27 15:58 | DI.RAD.S_ITS ---
PROCEDURE: XR HIP W PEL IF DONE LT 2V INDICATIONS: fall pain TECHNIQUE: AP pelvis with lateral view(s) of the left hip(s). COMPARISON: None. FINDINGS: Bones: No fractures or dislocations. Pelvic ring appears intact. No suspicious bony lesions. Soft tissues: The visualized bowel gas pattern is normal. No suspicious soft tissue calcifications. IMPRESSION: No acute osseous abnormality identified. If high clinical suspicion for occult fracture, consider CT bony pelvis. Dictated by: Ronan Molina M.D. on 05/27/2023 at 17:00 Approved by: Ronan Molina M.D. on 05/27/2023 at 17:01
== END 2023-05-27 18:04 | disposition home or self-care (01) ==
PROVIDERS: Emergency Provider Emergency Medicine; PCP Internal Medicine Endocrinology, Diabetes & Metabolism
DX: M25.552 Pain in left hip (principal); M25.512 Pain in left shoulder; R07.9 Chest pain, unspecified; W06.XXXA Fall from bed, initial encounter; R29.818 Other symptoms and signs involving the nervous system; Z20.822 Contact with and (suspected) exposure to COVID-19
CPT/HCPCS: 0241U; 36415; 70450; 71045; 73030; 73502; 80053; 81003; 82550; 83605; 83690; 83735; 84145; 84484; 85025; 85610; 85730; 93005; 93010; 99284

== ENCOUNTER 2023-06-08 17:48 | Emergency (ER) | payer MEDICARE, SELFPAY ==
[2023-06-08] VITALS (23 sets, daily range): BP systolic 110–153; BP diastolic 54–72; PULSE 96–109; RESP 12–32; TEMP 37; O2SAT 91–95; BMI 20.7
[2023-06-08 19:05] LABS: Alanine Aminotransferase 22 IU/L (<35); Albumin 3.7 g/dL (3.5-5.0); Albumin Globulin Ratio 1.3 (1.0-2.8); Alkaline Phosphatase 83 U/L (38-126); Aspartate Aminotransferase 29 IU/L (14-36); BUN Creatinine Ratio 21.1 (6-22); Bilirubin Total 0.7 mg/dL (0.2-1.3); Blood Urea Nitrogen 15 mg/dL (7-17); Calcium 9.3 mg/dL (8.4-10.2); Carbon Dioxide 30 mmol/L (22-32); Chloride 99 mmol/L (98-107); Estimated Glomerular Filt Rate > 60 mL/min (>60); Globulin 2.8 g/dL (1.7-4.1); Glucose 118 mg/dL (80-110); HEMOLYSIS < 15 (0-50); Lipase 83 U/L (23-300); Sodium 136 mmol/L (137-145); Total Protein 6.5 g/dL (6.3-8.2)
[2023-06-08 19:13] LABS: Add Manual Diff / Slide Review NO; Basophils Absolute Auto 0 /uL (0-100); Eosinophils Absolute Auto 0 /uL (0-450); Hematocrit 36.3 % (36-46); Hemoglobin 11.9 g/dL (12.0-16.0); Lymphocytes Absolute Auto 100 /uL (1100-4500); Lymphocytes Percent Auto 1.6 % (25-40); Mean Corpuscular HGB Conc 32.8 % (30-36); Mean Corpuscular Hemoglobin 29.2 PG (26-34); Mean Corpuscular Volume 89.1 fL (80-100); Monocytes Absolute Auto 0 /uL (0-900); Monocytes Percent Auto 0.6 % (3-14); Neutrophils Absolute Auto 7800 /uL (1500-7000); Neutrophils Percent Auto 97.8 % (50-75); Platelet Count 209 X10^3/uL (150-400); Red Blood Cell Count 4.07 X10^6/uL (4.0-5.2); Red Cell Distribution Width 18.4 % (11.6-14.8)
[2023-06-08 19:20] LABS: Appearance Urine UA CLEAR; Bilirubin Urine UA NEGATIVE (NEGATIVE); Color Urine UA YELLOW; Glucose Urine UA NEGATIVE (Negative); Ketones Urine UA NEGATIVE (NEGATIVE); Leukocyte Esterase Urine UA NEGATIVE (NEGATIVE); Nitrite Urine UA NEGATIVE (Negative); Occult Blood Urine UA NEGATIVE (Negative); Protein Urine UA TRACE (Negative)
[2023-06-08 19:35] LABS: Bacteria Urine None Seen; Culture Indicated Urine Cult Not Indicated; RBC Urine 0-1/HPF (0-5/HPF); Squamous Epithelial Cell Urine None Seen (0-5/HPF); WBC Urine 0-1/HPF (0-5/HPF)
--- NOTE | 2023-06-08 19:37 | DI.CT.S_ITS ---
PROCEDURE: CT HEAD/BRAIN WO CON INDICATIONS: Altered mental status TECHNIQUE: Noncontrast 4.5 mm thick angled axial sections acquired from the foramen magnum to the vertex, with coronal and sagittal reformats. For radiation dose reduction, the following was used: automated exposure control, adjustment of mA and/or kV according to patient size. COMPARISON: [facility], CT, CT HEAD/BRAIN WO CON, 05/27/2023, 16:04. FINDINGS: Image quality: Excellent. CSF spaces: Basal cisterns are patent. No extra-axial fluid collections. The ventricles are symmetric in size and shape. Brain: No intracranial bleeds or masses. There is cerebral volume loss for age, with resultant ventricular and sulcal prominence. There are periventricular and deep white matter chronic small vessel ischemic changes. There is intracranial internal carotid artery atherosclerosis. Skull and face: Calvarium and visualized facial bones appear intact, without suspicious lesions. Sinuses: There is an air-fluid level in the left maxillary sinus. The mastoids are clear. IMPRESSION: 1. No acute intracranial abnormalities. 2. Cerebral volume loss and chronic microvascular ischemic changes. 3. Left maxillary sinusitis. Dictated by: Jaylen Ly M.D. on 06/08/2023 at 19:56 Approved by: Jaylen Ly M.D. on 06/08/2023 at 19:57
--- NOTE | 2023-06-08 19:37 | DI.CT.S_ITS ---
PROCEDURE: CT CHEST ABD PEL WO CON INDICATIONS: Abdominal pain TECHNIQUE: After the administration of oral contrast, 5 mm thick sections acquired from the lung apices to the symphysis pubis. 5 mm thick coronal and sagittal reformats acquired, with additional 7 mm coronal MIP reformats through the lungs. For radiation dose reduction, the following was used: automated exposure control, adjustment of mA and/or kV according to patient size. COMPARISON: None. FINDINGS: Image quality: Excellent. CHEST: Lungs and pleura: There is a 1.2 x 1.8 cm spiculated nodule in the superior segment of the right lower lobe. Left lower lobe scars and atelectasis. Moderate emphysema. No acute pulmonary opacities. No pleural effusions or pneumothorax. Central and peripheral airways are patent are normal in caliber. Mediastinum: Heart size is mildly enlarged. Moderate atherosclerosis. No pericardial effusion. There is a 1.1 cm precarinal lymph node. Thoracic aorta and central pulmonary arteries are normal in size. Esophagus is normal in caliber. Small hiatal hernia. Chest wall: No axillary or supraclavicular adenopathy by size criteria. Thyroid gland normal . ABDOMEN: Solid organs: Liver is normal in size. Gallbladder contains gallstones. There is gallbladder wall thickening and pericholecystic stranding. Pancreas is normal in contours. Spleen is normal in size. There is a 1.4 cm left adrenal nodule with CT density 20 HU. 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 Both kidneys are normal in size, without hydronephrosis. There are bilateral nonobstructive renal calculi. There is a 2.5 cm cyst in the right kidney. A 1 cm low-density nodule in left kidney is also likely cysts. Mild perinephric stranding bilaterally. Peritoneum and bowel: Small and large bowel loops are normal in caliber. Distal ileum may be mildly thickened. There is a large amount of stool in colon. No free fluid or air. Nodes and vessels: No retroperitoneal or mesenteric adenopathy by size criteria. Aorta and inferior vena cava are normal in size. Moderate to severe atherosclerosis. Miscellaneous: No ventral hernias. PELVIS: Genitourinary: Bladder wall thickness is normal. Miscellaneous: No inguinal hernias or adenopathy. Bones: No suspicious bony lesions. No vertebral body compression fractures. IMPRESSION: 1. Cholecystitis. There is gallbladder wall thickening and pericholecystic stranding suspicious for acute cholecystitis. Recommend gallbladder ultrasound or HIDA scan for further evaluation. 2. A 1.2 x 1.8 cm spiculated nodule in the right lower lobe. Recommend PET-CT for further evaluation. 3. Mild mediastinal lymphadenopathy. This finding is nonspecific and may be secondary to infectious, inflammatory or neoplastic etiology. This can be evaluated by PET-CT at same time 4. A 1.4 cm left adrenal nodule. Recommend adrenal protocol CT or MRI for further evaluation. 5. Distal ileum may be mildly thickened although the appearance could be caused by artifact due to lack of contrast distention. 6. Bilateral nonobstructive renal calculi. Dictated by: Jaylen Ly M.D. on 06/08/2023 at 20:27 Approved by: Jaylen Ly M.D. on 06/08/2023 at 20:36
--- NOTE | 2023-06-08 19:47 | ED_ITS ---
HPI - Weakness <Sohan Reyes MD - Last Filed: 06/10/23 03:22> General Chief complaint: Weakness Stated complaint: Abd pain Time Seen by Provider: 06/08/23 19:16 Source: patient Mode of arrival: EMS History of Present Illness HPI Narrative: Patient here with daughter and . Complains of fever weakness fall general malaise. 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 Had 1 adrenal gland removed. She did have cortisone challenge test yesterday with endocrinology. There was concern about adrenal crisis. She has been in this before. However not usually associated with fever. Patient got up around 1:00 a.m. last night to go the bathroom. She did fall down. No known injury. states she was very weak but eventually made it back to bed. However through the course of the night morning and day she is had about 70 mg of hydrocortisone injections at home. Still not feeling better. Patient has had increased urination recently. No prior history UTI. Does complain abdominal discomfort. No chest pain. She does have history of stroke. Daughter thought she might have seen some left eye drooping. However this is resolved. Patient is awake alert oriented x4. Related Data Previous Rx's Medication Instructions Recorded levofloxacin 500 mg tablet 500 mg PO DAILY 7 days #7 tabs 06/09/23 Allergies Allergy/AdvReac Type Severity Reaction Status Date / Time azithromycin Allergy Verified 06/08/23 18:01 [From Zithromax Z-Anthony] clarithromycin [From Biaxin] Allergy Verified 06/08/23 18:01 Iodinated Contrast Media Allergy Verified 06/08/23 18:01 Penicillins Allergy Verified 06/08/23 18:01 Sulfa (Sulfonamide Allergy Verified 06/08/23 18:01 Antibiotics) Review of Systems <Sohan Reyes MD - Last Filed: 06/10/23 03:22> Review of Systems Narrative: GENERAL: Positive chills, fatigue, malaise, fever, sweats. HEENT: negative sinus pain, ear pain, sore throat RESPIRATORY: negative dyspnea, cough CARDIOVASCULAR: negative chest pain, palpitations GASTROINTESTINAL: negative nausea, vomiting, positive abdominal pain : Positive dysuria, frequency, negative hematuria MUSCULOSKELETAL: negative muscle or bony pain SKIN: negative rash, skin lesions NEUROLOGIC: negative weakness, numbness ROS Unobtainable: All systems reviewed & are unremarkable except as noted in HPI and below Patient History <Sohan Reyes MD - Last Filed: 06/10/23 03:22> Social History Smoking Status: Never smoker Smoking Status: Never smoker alcohol intake frequency: holidays/special occasions only Substance Use Type: does not use Exam <Sohan Reyes MD - Last Filed: 06/10/23 03:22> Narrative Exam Narrative: GENERAL: in no distress, not toxic not dyspneic HEAD: Normocephalic. EYES: Pupils equal round ENT: Mucous membranes moist. NECK: Trachea midline. CARDIOVASCULAR: Regular rate and rhythm without murmurs RESPIRATORY: Clear to auscultation. Breath sounds equal bilaterally. No wheezes, rales, or rhonchi. GASTROINTESTINAL: Abdomen soft, there is mild diffuse tenderness but no peritoneal signs, bowel sounds are present. EXTREMITIES: No gross deformities. BACK: No flank tenderness. NEURO: AOx4. Fast exam is negative. Clear speech no facial droop light touch intact bilateral face and hands with strong equal seafood team member. Negative pronator drift. SKIN: Warm and dry PSYCH: Not anxious, is cooperative Initial Vital Signs Initial Vital Signs: Vital Signs Temperature 98.6 F 06/08/23 17:43 Pulse Rate 109 H 06/08/23 17:43 Respiratory Rate 24 06/08/23 17:43 Blood Pressure 140/69 06/08/23 17:43 Pulse Oximetry 92 06/08/23 17:43 Oxygen Delivery Method Room Air 06/08/23 17:43 <Jose Medellin MD - Last Filed: 06/09/23 19:14> Initial Vital Signs Initial Vital Signs: Vital Signs Temperature 98.6 F 06/08/23 17:43 Pulse Rate 109 H 06/08/23 17:43 Respiratory Rate 24 06/08/23 17:43 Blood Pressure 140/69 06/08/23 17:43 Pulse Oximetry 92 06/08/23 17:43 Oxygen Delivery Method Room Air 06/08/23 17:43 Course <Sohan Reyes MD - Last Filed: 06/10/23 03:22> Orders Ordered: Discontinued Medications Acetaminophen (Acetaminophen 325 Mg Tablet) 650 mg PO NOW ONE Stop: 06/09/23 01:08 Last Admin: 06/09/23 01:15 Dose: 650 mg Documented By: MISTI Acetaminophen (Acetaminophen 325 Mg Tablet) 650 mg PO NOW ONE Stop: 06/09/23 12:10 Last Admin: 06/09/23 12:30 Dose: 650 mg Documented By: ODUG Hydrocortisone (Hydrocortisone 100 Mg/2 Ml Vial) 100 mg IV NOW ONE Stop: 06/09/23 07:46 Last Admin: 06/09/23 08:37 Dose: Not Given Documented By: DOUG Levofloxacin (Levaquin) 500 mg in 100 mls @ 100 mls/hr IV Q24H AWILDA Last Infusion: 06/08/23 23:40 Dose: 0 mls/hr Documented By: Admin: 06/08/23 22:40 Dose: 100 mls/hr Documented By: MISTI Ondansetron HCl (Ondansetron 4 Mg Odt) 4 mg PO NOW PRN PRN Reason: Nausea And Vomiting Ondansetron HCl (Ondansetron 4 Mg/2 Ml Inj) 4 mg IV NOW PRN PRN Reason: Nausea And Vomiting Last Admin: 06/09/23 12:43 Dose: 4 mg Documented By: DOUG Vital Signs Vital signs: Vital Signs - 8 hr 06/09/23 11:30 06/09/23 12:00 06/09/23 12:00 Pulse Rate 95 H 97 H Respiratory Rate 22 15 Blood Pressure 145/64 H Pulse Oximetry 98 94 06/09/23 12:30 06/09/23 12:52 06/09/23 12:52 Pulse Rate 101 H 103 H Respiratory Rate 17 17 Blood Pressure 167/69 H Pulse Oximetry 93 95 06/09/23 13:00 06/09/23 13:03 06/09/23 13:03 Pulse Rate 104 H 101 H Respiratory Rate 20 20 Blood Pressure 155/70 H Pulse Oximetry 95 95 06/09/23 13:30 06/09/23 15:46 06/09/23 15:48 Pulse Rate 100 H 82 83 Respiratory Rate 22 22 Blood Pressure Pulse Oximetry 94 97 97 06/09/23 15:48 06/09/23 16:00 06/09/23 16:00 Pulse Rate 82 Respiratory Rate 22 Blood Pressure 135/63 112/59 L Pulse Oximetry 96 06/09/23 16:30 06/09/23 17:00 06/09/23 17:30 Pulse Rate 94 H 86 85 Respiratory Rate 23 20 21 Blood Pressure Pulse Oximetry 95 98 96 06/09/23 18:00 Pulse Rate 87 Respiratory Rate 21 Blood Pressure Pulse Oximetry 95 <Jose Medellin MD - Last Filed: 06/09/23 19:14> Orders Ordered: Discontinued Medications Acetaminophen (Acetaminophen 325 Mg Tablet) 650 mg PO NOW ONE Stop: 06/09/23 01:08 Last Admin: 06/09/23 01:15 Dose: 650 mg Documented By: MISTI Acetaminophen (Acetaminophen 325 Mg Tablet) 650 mg PO NOW ONE Stop: 06/09/23 12:10 Last Admin: 06/09/23 12:30 Dose: 650 mg Documented By: DOUG Hydrocortisone (Hydrocortisone 100 Mg/2 Ml Vial) 100 mg IV NOW ONE Stop: 06/09/23 07:46 Last Admin: 06/09/23 08:37 Dose: Not Given Documented By: DOUG Levofloxacin (Levaquin) 500 mg in 100 mls @ 100 mls/hr IV Q24H AWILDA Last Infusion: 06/08/23 23:40 Dose: 0 mls/hr Documented By: Admin: 06/08/23 22:40 Dose: 100 mls/hr Documented By: MISTI Ondansetron HCl (Ondansetron 4 Mg Odt) 4 mg PO NOW PRN PRN Reason: Nausea And Vomiting Ondansetron HCl (Ondansetron 4 Mg/2 Ml Inj) 4 mg IV NOW PRN PRN Reason: Nausea And Vomiting Last Admin: 06/09/23 12:43 Dose: 4 mg Documented By: DOUG Vital Signs Vital signs: Vital Signs - 8 hr 06/09/23 11:30 06/09/23 12:00 06/09/23 12:00 Pulse Rate 95 H 97 H Respiratory Rate 22 15 Blood Pressure 145/64 H Pulse Oximetry 98 94 06/09/23 12:30 06/09/23 12:52 06/09/23 12:52 Pulse Rate 101 H 103 H Respiratory Rate 17 17 Blood Pressure 167/69 H Pulse Oximetry 93 95 06/09/23 13:00 06/09/23 13:03 06/09/23 13:03 Pulse Rate 104 H 101 H Respiratory Rate 20 20 Blood Pressure 155/70 H Pulse Oximetry 95 95 06/09/23 13:30 06/09/23 15:46 06/09/23 15:48 Pulse Rate 100 H 82 83 Respiratory Rate 22 22 Blood Pressure Pulse Oximetry 94 97 97 06/09/23 15:48 06/09/23 16:00 06/09/23 16:00 Pulse Rate 82 Respiratory Rate 22 Blood Pressure 135/63 112/59 L Pulse Oximetry 96 06/09/23 16:30 06/09/23 17:00 06/09/23 17:30 Pulse Rate 94 H 86 85 Respiratory Rate 23 20 21 Blood Pressure Pulse Oximetry 95 98 96 06/09/23 18:00 Pulse Rate 87 Respiratory Rate 21 Blood Pressure Pulse Oximetry 95 MDM - Weakness <Sohan Reyes MD - Last Filed: 06/10/23 03:22> Lab Data 06/08/23 17:50 06/08/23 17:50 Labs: Lab Results 06/08/23 06/08/23 06/08/23 Range/Units 17:50 17:50 18:40 WBC 8.0 (4.5-11.0) X10^3/uL RBC 4.07 (4.0-5.2) X10^6/uL Hgb 11.9 L (12.0-16.0) g/dL Hct 36.3 (36-46) % MCV 89.1 (80-100) fL MCH 29.2 (26-34) PG MCHC 32.8 (30-36) % RDW 18.4 H (11.6-14.8) % Plt Count 209 (150-400) X10^3/uL Neut % (Auto) 97.8 H (50-75) % Lymph % (Auto) 1.6 L (25-40) % [place] % (Auto) 0.6 L (3-14) % Eos % (Auto) 0.0 L (2-4) % Baso % (Auto) 0.0 (0-2) % Neut # (Auto) 7800 H (4638-6739) /uL Lymph # (Auto) 100 L (5652-5385) /uL [place] # (Auto) 0 (0-900) /uL Eos # (Auto) 0 (0-450) /uL Baso # (Auto) 0 (0-100) /uL Sodium 136 L (137-145) mmol/L Potassium 4.0 (3.4-5.1) mmol/L Chloride 99 (98-107) mmol/L Carbon Dioxide 30 (22-32) mmol/L BUN 15 (7-17) mg/dL Creatinine 0.71 (0.52-1.04) mg/dL Estimated GFR > 60 (>60) mL/min BUN/Creatinine Ratio 21.1 (6-22) Glucose 118 H (80-110) mg/dL Calcium 9.3 (8.4-10.2) mg/dL Total Bilirubin 0.7 (0.2-1.3) mg/dL AST 29 (14-36) IU/L ALT 22 (<35) IU/L Alkaline Phosphatase 83 (38-126) U/L Total Protein 6.5 (6.3-8.2) g/dL Albumin 3.7 (3.5-5.0) g/dL Globulin 2.8 (1.7-4.1) g/dL Albumin/Globulin Ratio 1.3 (1.0-2.8) Lipase 83 (23-300) U/L Urine Color Yellow Urine Appearance Clear Urine pH 6.0 (4.5-8.0) Ur Specific [place] 1.010 (1.000-1.035) Urine Protein Trace H (Negative) Urine Glucose (UA) Negative (Negative) g/dL Urine Ketones Negative (NEGATIVE) Urine Occult Blood Negative (Negative) Urine Nitrate Negative (Negative) Urine Bilirubin Negative (NEGATIVE) Urine Urobilinogen 1.0 (0.2) E.U./dL Ur Leukocyte Esterase Negative (NEGATIVE) Urine RBC 0-1/hpf (0-5/HPF) Urine WBC 0-1/hpf (0-5/HPF) Ur Squamous Epith Cells None seen (0-5/HPF) Urine Bacteria None seen (None) Ur Culture Indicated? Cult not indicated Chlamy pneumoniae PCR (Not Detect) Adenovirus (PCR) (Not Detect) B. pertussis DNA (PCR) (Not Detecte) B.parapertussis DNA PCR (Not Detecte) Coronavirus OC43 (PCR) (Not Detect) Coronavirus HKU1 (PCR) (Not Detect) Coronavirus 229E (PCR) (Not Detect) SARS-CoV-2 (PCR) (Not Detecte) Coronavirus NL63 (PCR) (Not Detect) Human Metapneumovir PCR (Not Detect) Influenza Type A (PCR) (Not Detect) Influenza Type B (PCR) (Not Detect) M. pneumoniae (PCR) (Not Detect) Parainfluenza 1 (PCR) (Not Detect) Parainfluenza 2 (PCR) (Not Detect) Parainfluenza 3 (PCR) (Not Detect) Parainfluenza 4 (PCR) (Not Detect) RSV (PCR) (Not Detect) Entero/Rhino (PCR) (Not Detect) 06/08/23 Range/Units 19:53 WBC (4.5-11.0) X10^3/uL RBC (4.0-5.2) X10^6/uL Hgb (12.0-16.0) g/dL Hct (36-46) % MCV (80-100) fL MCH (26-34) PG MCHC (30-36) % RDW (11.6-14.8) % Plt Count (150-400) X10^3/uL Neut % (Auto) (50-75) % Lymph % (Auto) (25-40) % [place] % (Auto) (3-14) % Eos % (Auto) (2-4) % Baso % (Auto) (0-2) % Neut # (Auto) (6280-4214) /uL Lymph # (Auto) (7120-0824) /uL [place] # (Auto) (0-900) /uL Eos # (Auto) (0-450) /uL Baso # (Auto) (0-100) /uL Sodium (137-145) mmol/L Potassium (3.4-5.1) mmol/L Chloride (98-107) mmol/L Carbon Dioxide (22-32) mmol/L BUN (7-17) mg/dL Creatinine (0.52-1.04) mg/dL Estimated GFR (>60) mL/min BUN/Creatinine Ratio (6-22) Glucose (80-110) mg/dL Calcium (8.4-10.2) mg/dL Total Bilirubin (0.2-1.3) mg/dL AST (14-36) IU/L ALT (<35) IU/L Alkaline Phosphatase (38-126) U/L Total Protein (6.3-8.2) g/dL Albumin (3.5-5.0) g/dL Globulin (1.7-4.1) g/dL Albumin/Globulin Ratio (1.0-2.8) Lipase (23-300) U/L Urine Color Urine Appearance Urine pH (4.5-8.0) Ur Specific [place] (1.000-1.035) Urine Protein (Negative) Urine Glucose (UA) (Negative) g/dL Urine Ketones (NEGATIVE) Urine Occult Blood (Negative) Urine Nitrate (Negative) Urine Bilirubin (NEGATIVE) Urine Urobilinogen (0.2) E.U./dL Ur Leukocyte Esterase (NEGATIVE) Urine RBC (0-5/HPF) Urine WBC (0-5/HPF) Ur Squamous Epith Cells (0-5/HPF) Urine Bacteria (None) Ur Culture Indicated? Chlamy pneumoniae PCR Not detected (Not Detect) Adenovirus (PCR) Not detected (Not Detect) B. pertussis DNA (PCR) Not detected (Not Detecte) B.parapertussis DNA PCR Not detected (Not Detecte) Coronavirus OC43 (PCR) Not detected (Not Detect) Coronavirus HKU1 (PCR) Not detected (Not Detect) Coronavirus 229E (PCR) Not detected (Not Detect) SARS-CoV-2 (PCR) Not detected (Not Detecte) Coronavirus NL63 (PCR) Not detected (Not Detect) Human Metapneumovir PCR Not detected (Not Detect) Influenza Type A (PCR) Not detected (Not Detect) Influenza Type B (PCR) Not detected (Not Detect) M. pneumoniae (PCR) Not detected (Not Detect) Parainfluenza 1 (PCR) Not detected (Not Detect) Parainfluenza 2 (PCR) Not detected (Not Detect) Parainfluenza 3 (PCR) Not detected (Not Detect) Parainfluenza 4 (PCR) Not detected (Not Detect) RSV (PCR) Not detected (Not Detect) Entero/Rhino (PCR) Not detected (Not Detect) Imaging Data CT scan - head: Radiologist Impression: [address] [address] [address] Scan Report Signed Patient: Mima Escalante MR#: [id number] : 1940 Acct:[id number] Age/Sex: 82 / F Date of Service: 06/08/23 Loc: ED Accession Number: [id number] ?? Procedure: CT head/brain wo con Ordering Provider: Sohan Reyes MD PROCEDURE:? CT HEAD/BRAIN WO CON ? INDICATIONS:? Altered mental status ? TECHNIQUE:? Noncontrast 4.5 mm thick angled axial sections acquired from the foramen magnum to the vertex, with coronal and sagittal reformats.? For radiation dose reduction, the following was used:? automated exposure control, adjustment of mA and/or kV according to patient size.? ? COMPARISON:? [facility], CT, CT HEAD/BRAIN WO CON, 05/27/2023, 16:04. ? FINDINGS:? Image quality:? Excellent.? ? CSF spaces:? Basal cisterns are patent.? No extra-axial fluid collections.? The ventricles are symmetric in size and shape.? ? Brain:? No intracranial bleeds or masses.? There is cerebral volume loss for age, with resultant ventricular and sulcal prominence.? There are periventricular and deep white matter chronic small vessel ischemic changes.? There is intracranial internal carotid artery atherosclerosis.? ? Skull and face:? Calvarium and visualized facial bones appear intact, without suspicious lesions.? ? Sinuses:? There is an air-fluid level in the left maxillary sinus.? The? mastoids are clear.? ? IMPRESSION:? ? 1. No acute intracranial abnormalities. ? 2. Cerebral volume loss and chronic microvascular ischemic changes. ? 3.? Left maxillary sinusitis. ? ? ? Dictated by: Jaylen Ly M.D. on 06/08/2023 at 19:56 ? ? Approved by: Jaylen Ly M.D. on 06/08/2023 at 19:57 ? CT scan - abdomen/pelvis: Radiologist Impression: [place] [address] CT Scan Report Signed Patient: Mima Escalante MR#: [id number] : 1940 Acct:[id number] Age/Sex: 82 / F Date of Service: 06/08/23 Loc: ED Accession Number: [id number] ?? Procedure: CT chest abd pel wo con Ordering Provider: Sohan Reyes MD PROCEDURE:? CT CHEST ABD PEL WO CON ? INDICATIONS:? Abdominal pain ? TECHNIQUE:? After the administration of oral contrast, 5 mm thick sections acquired from the lung apices to the symphysis pubis.? 5 mm thick coronal and sagittal reformats acquired, with additional 7 mm coronal MIP reformats through the lungs.? For radiation dose reduction, the following was used:? automated exposure control, adjustment of mA and/or kV according to patient size.? ? COMPARISON:? None. ? FINDINGS:? Image quality:? Excellent.? ? CHEST:? Lungs and pleura:? There is a 1.2 x 1.8 cm spiculated nodule in the superior segment of the right lower lobe.? Left lower lobe scars and atelectasis.? Moderate emphysema. ? No acute pulmonary opacities.? No pleural effusions or pneumothorax.? Central and peripheral airways are patent are normal in caliber.? ? Mediastinum:? Heart size is mildly enlarged.? Moderate atherosclerosis.? No pericardial effusion.? There is a 1.1 cm precarinal lymph node.? Thoracic aorta and central pulmonary arteries are normal in size.? Esophagus is normal in caliber.? Small hiatal hernia.? ? Chest wall:? No axillary or supraclavicular adenopathy by size criteria.? Thyroid gland normal .? ? ? ABDOMEN:? Solid organs:? Liver is normal in size.? Gallbladder contains gallstones.? There is gallbladder wall thickening and pericholecystic stranding.? Pancreas is normal in contours.? Spleen is normal in size.? There is a 1.4 cm left adrenal nodule with CT density 20 HU.? 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 ? Both kidneys are normal in size, without hydronephrosis.? There are bilateral nonobstructive renal calculi.? There is a 2.5 cm cyst in the right kidney.? A 1 cm low-density nodule in left kidney is also likely cysts.? Mild perinephric stranding bilaterally. ? Peritoneum and bowel:? Small and large bowel loops are normal in caliber.? Distal ileum may be mildly thickened.? There is a large amount of stool in colon.? No free fluid or air.? ? Nodes and vessels:? No retroperitoneal or mesenteric adenopathy by size criteria.? Aorta and inferior vena cava are normal in size.? Moderate to severe atherosclerosis. ? Miscellaneous:? No ventral hernias.? ? ? PELVIS:? Genitourinary:? Bladder wall thickness is normal.? ? Miscellaneous:? No inguinal hernias or adenopathy.? ? Bones:? No suspicious bony lesions.? No vertebral body compression fractures.? ? IMPRESSION:? ? 1. Cholecystitis.? There is gallbladder wall thickening and pericholecystic stranding suspicious for acute cholecystitis. Recommend gallbladder ultrasound or HIDA scan for further evaluation.? ? 2. A 1.2 x 1.8 cm spiculated nodule in the right lower lobe.? Recommend PET-CT for further evaluation. ? 3. Mild mediastinal lymphadenopathy.? This finding is nonspecific and may be secondary to infectious, inflammatory or neoplastic etiology.? This can be evaluated by PET- CT at same time ? 4. A 1.4 cm left adrenal nodule.? Recommend adrenal protocol CT or MRI for further evaluation. ? 5. Distal ileum may be mildly thickened although the appearance could be caused by artifact due to lack of contrast distention.? ? 6. Bilateral nonobstructive renal calculi. ? Dictated by: Jaylen Ly M.D. on 06/08/2023 at 20:27 ? ? Approved by: Jaylen Ly M.D. on 06/08/2023 at 20:36 ? US - abdomen: Radiologist Impression: [place] [address] Ultrasound Report Signed Patient: Mima Escalante MR#: [id number] : 1940 Acct:[id number] Age/Sex: 82 / F Date of Service: 06/08/23 Loc: ED Accession Number: [id number] ?? Procedure: US abdomen limited Ordering Provider: Sohan Reyes MD PROCEDURE: US ABDOMEN LIMITED ? INDICATIONS:? RUQ PAIN; ABNORMAL GB ON CT ? TECHNIQUE:? Real-time focused scanning was performed of the abdomen, with image documentation.? ? COMPARISON:? [facility], CT, CT CHEST ABD PEL WO CON, 06/08/2023, 19:47. ? FINDINGS:? The liver is normal in echotexture and size, free of intrahepatic biliary distension.? The gallbladder contains 2 visualized nonobstructive partially calcified gallstones the largest measuring up to 10 mm.? Gallbladder wall thickness is abnormal at 8.5 mm.? There is no adjacent free fluid or tenderness.? The pancreas visualized appears normal.? ? IMPRESSION:? Gallstones partially calcified within the gallbladder lumen with associated abnormal gallbladder wall thickening up to 8.5 mm.? The absence of adjacent free fluid and focal tenderness suggests chronic cholecystitis, as does the nonobstructive nature of these 2 stones. ? ? Dictated by: Rudy Escobar M.D. on 06/08/2023 at 21:48 ? ? Approved by: Rudy Escobar M.D. on 06/08/2023 at 21:50 ? [facility] Narrative Medical decision making narrative: Patient here with daughter and . Complains of fever weakness fall general malaise. 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 Had 1 adrenal gland removed. She did have cortisone challenge test yesterday with endocrinology. There was concern about adrenal crisis. She has been in this before. However not usually associated with fever. Patient got up around 1:00 a.m. last night to go the bathroom. She did fall down. No known injury. states she was very weak but eventually made it back to bed. However through the course of the night morning and day she is had about 70 mg of hydrocortisone injections at home. Still not feeling better. Patient has had increased urination recently. No prior history UTI. Does complain abdominal discomfort. No chest pain. She does have history of stroke. Daughter thought she might have seen some left eye drooping. However this is resolved. Patient is awake alert oriented x4. After history and exam CBC CMP urinalysis respiratory panel EKG CT head CT chest abdomen pelvis [facility] CC: Abdominal pain dysuria fever weakness Complicating co-morbidities: Pheochromocytoma Data collected from: Patient and family Medical records reviewed: No recent visits for this complaint Differential considered: Includes but not limited to adrenal crisis/UTI/respiratory infection Exam documented above, pertinent findings include: Tender abdomen Lab Test results independently reviewed as above. Pertinent findings: WBC 8.0 hemoglobin 11.9 sodium 136 potassium 4.0 BUN 15 creatinine 0.71 GFR greater than 60 AST 29 ALT 22 urinalysis negative nitrate negative leukocyte esterase Independently reviewed EKG sinus rhythm rate [address] elevation or depression. QT 382/482 Imaging studies independently reviewed: CT abdomen pelvis ultrasound abdomen reveals acute cholecystitis, CT head no acute finding Consultations: 10:00 p.m.. [facility] transfer [place] has not informed that we will have to wait until the morning to get administrative authority to have patient admitted as there are at high capacity. Treatments: Levaquin Re-evaluations: Pain is controlled. 10:30 p.m.. I did review results with patient and family. They do understand we need to wait for [facility] approval for a bed transfer. Discussion: Diagnosis: Acute cholecystitis June 09, 2023 at 7:00 a.m.. Sign-out to Dr. Medellin, [facility] will be calling back this morning given their capacity they need administration approval to accept patient for continuity of care. Home medications will need to be placed <Jose Medellin MD - Last Filed: 06/09/23 19:14> Medical Records Medical records narrative: Care was transitioned from Dr. Sierra at change of shift at 7:00 a.m. this morning. She is felt to have acute cholecystitis, in the light of adrenal insufficiency, and pernicious anemia. The initial plan was to transfer her to the [facility] for surgery. She was started on Levaquin. She underwent cortisone challenge yesterday. I talked to her barrel ribs solderer. He Informed me that she passed the cortisone challenge, there is no adrenal insufficiency. CT suggested acute cholecystitis. Ultrasound showed gallstones, no entrapment at the neck. There is gallbladder wall thickening, no pericholecystic fluid. Her WBC count and LFTs are normal. The case was reviewed with the on-call surgeon, Dr. Ramesh. She is cholelithiasis, cholecystitis is not clear. The patient is doing well with IV fluids. She was made NPO. HIDA scan was obtained. The HIDA scan was nondiagnostic. The case was then discussed with Dr. Ramesh once again. Patient is tolerating p.o.. She is afebrile. She is going to be discharged home for outpatient follow-up. I will discharge her on Levaquin.Carola PARADA 17:50 06/09/23 Lab Data Labs: Lab Results 06/08/23 06/08/23 06/08/23 Range/Units 17:50 17:50 18:40 WBC 8.0 (4.5-11.0) X10^3/uL RBC 4.07 (4.0-5.2) X10^6/uL Hgb 11.9 L (12.0-16.0) g/dL Hct 36.3 (36-46) % MCV 89.1 (80-100) fL MCH 29.2 (26-34) PG MCHC 32.8 (30-36) % RDW 18.4 H (11.6-14.8) % Plt Count 209 (150-400) X10^3/uL Neut % (Auto) 97.8 H (50-75) % Lymph % (Auto) 1.6 L (25-40) % [place] % (Auto) 0.6 L (3-14) % Eos % (Auto) 0.0 L (2-4) % Baso % (Auto) 0.0 (0-2) % Neut # (Auto) 7800 H (3910-9767) /uL Lymph # (Auto) 100 L (4550-2242) /uL [place] # (Auto) 0 (0-900) /uL Eos # (Auto) 0 (0-450) /uL Baso # (Auto) 0 (0-100) /uL Sodium 136 L (137-145) mmol/L Potassium 4.0 (3.4-5.1) mmol/L Chloride 99 (98-107) mmol/L Carbon Dioxide 30 (22-32) mmol/L BUN 15 (7-17) mg/dL Creatinine 0.71 (0.52-1.04) mg/dL Estimated GFR > 60 (>60) mL/min BUN/Creatinine Ratio 21.1 (6-22) Glucose 118 H (80-110) mg/dL Calcium 9.3 (8.4-10.2) mg/dL Total Bilirubin 0.7 (0.2-1.3) mg/dL AST 29 (14-36) IU/L ALT 22 (<35) IU/L Alkaline Phosphatase 83 (38-126) U/L Total Protein 6.5 (6.3-8.2) g/dL Albumin 3.7 (3.5-5.0) g/dL Globulin 2.8 (1.7-4.1) g/dL Albumin/Globulin Ratio 1.3 (1.0-2.8) Lipase 83 (23-300) U/L Urine Color Yellow Urine Appearance Clear Urine pH 6.0 (4.5-8.0) Ur Specific [place] 1.010 (1.000-1.035) Urine Protein Trace H (Negative) Urine Glucose (UA) Negative (Negative) g/dL Urine Ketones Negative (NEGATIVE) Urine Occult Blood Negative (Negative) Urine Nitrate Negative (Negative) Urine Bilirubin Negative (NEGATIVE) Urine Urobilinogen 1.0 (0.2) E.U./dL Ur Leukocyte Esterase Negative (NEGATIVE) Urine RBC 0-1/hpf (0-5/HPF) Urine WBC 0-1/hpf (0-5/HPF) Ur Squamous Epith Cells None seen (0-5/HPF) Urine Bacteria None seen (None) Ur Culture Indicated? Cult not indicated Chlamy pneumoniae PCR (Not Detect) Adenovirus (PCR) (Not Detect) B. pertussis DNA (PCR) (Not Detecte) B.parapertussis DNA PCR (Not Detecte) Coronavirus OC43 (PCR) (Not Detect) Coronavirus HKU1 (PCR) (Not Detect) Coronavirus 229E (PCR) (Not Detect) SARS-CoV-2 (PCR) (Not Detecte) Coronavirus NL63 (PCR) (Not Detect) Human Metapneumovir PCR (Not Detect) Influenza Type A (PCR) (Not Detect) Influenza Type B (PCR) (Not Detect) M. pneumoniae (PCR) (Not Detect) Parainfluenza 1 (PCR) (Not Detect) Parainfluenza 2 (PCR) (Not Detect) Parainfluenza 3 (PCR) (Not Detect) Parainfluenza 4 (PCR) (Not Detect) RSV (PCR) (Not Detect) Entero/Rhino (PCR) (Not Detect) 06/08/23 Range/Units 19:53 WBC (4.5-11.0) X10^3/uL RBC (4.0-5.2) X10^6/uL Hgb (12.0-16.0) g/dL Hct (36-46) % MCV (80-100) fL MCH (26-34) PG MCHC (30-36) % RDW (11.6-14.8) % Plt Count (150-400) X10^3/uL Neut % (Auto) (50-75) % Lymph % (Auto) (25-40) % [place] % (Auto) (3-14) % Eos % (Auto) (2-4) % Baso % (Auto) (0-2) % Neut # (Auto) (0275-6253) /uL Lymph # (Auto) (2073-9838) /uL [place] # (Auto) (0-900) /uL Eos # (Auto) (0-450) /uL Baso # (Auto) (0-100) /uL Sodium (137-145) mmol/L Potassium (3.4-5.1) mmol/L Chloride (98-107) mmol/L Carbon Dioxide (22-32) mmol/L BUN (7-17) mg/dL Creatinine (0.52-1.04) mg/dL Estimated GFR (>60) mL/min BUN/Creatinine Ratio (6-22) Glucose (80-110) mg/dL Calcium (8.4-10.2) mg/dL Total Bilirubin (0.2-1.3) mg/dL AST (14-36) IU/L ALT (<35) IU/L Alkaline Phosphatase (38-126) U/L Total Protein (6.3-8.2) g/dL Albumin (3.5-5.0) g/dL Globulin (1.7-4.1) g/dL Albumin/Globulin Ratio (1.0-2.8) Lipase (23-300) U/L Urine Color Urine Appearance Urine pH (4.5-8.0) Ur Specific [place] (1.000-1.035) Urine Protein (Negative) Urine Glucose (UA) (Negative) g/dL Urine Ketones (NEGATIVE) Urine Occult Blood (Negative) Urine Nitrate (Negative) Urine Bilirubin (NEGATIVE) Urine Urobilinogen (0.2) E.U./dL Ur Leukocyte Esterase (NEGATIVE) Urine RBC (0-5/HPF) Urine WBC (0-5/HPF) Ur Squamous Epith Cells (0-5/HPF) Urine Bacteria (None) Ur Culture Indicated? Chlamy pneumoniae PCR Not detected (Not Detect) Adenovirus (PCR) Not detected (Not Detect) B. pertussis DNA (PCR) Not detected (Not Detecte) B.parapertussis DNA PCR Not detected (Not Detecte) Coronavirus OC43 (PCR) Not detected (Not Detect) Coronavirus HKU1 (PCR) Not detected (Not Detect) Coronavirus 229E (PCR) Not detected (Not Detect) SARS-CoV-2 (PCR) Not detected (Not Detecte) Coronavirus NL63 (PCR) Not detected (Not Detect) Human Metapneumovir PCR Not detected (Not Detect) Influenza Type A (PCR) Not detected (Not Detect) Influenza Type B (PCR) Not detected (Not Detect) M. pneumoniae (PCR) Not detected (Not Detect) Parainfluenza 1 (PCR) Not detected (Not Detect) Parainfluenza 2 (PCR) Not detected (Not Detect) Parainfluenza 3 (PCR) Not detected (Not Detect) Parainfluenza 4 (PCR) Not detected (Not Detect) RSV (PCR) Not detected (Not Detect) Entero/Rhino (PCR) Not detected (Not Detect) Discharge Plan Departure Patient Disposition: Home Clinical Impression: Acute cholecystitis Instructions: Gallstones Activity Restrictions/Additional Instructions: Be sure you are drinking plenty of fluids at all times. You should be on a low-fat/no-fat diet. Levaquin 500 mg daily for [address] Ramesh, surgeon, tomorrow to arrange follow-up. If you develop increasing pain or fever return to the ER. Prescriptions: New levofloxacin 500 mg tablet 500 mg PO DAILY 7 Days Qty: 7 0RF Referrals: Jose Francisco Booth MD [Primary Care Provider] - Stand Alone Forms: Patient Portal/API
--- NOTE | 2023-06-08 20:41 | DI.US.S_ITS ---
PROCEDURE: US ABDOMEN LIMITED INDICATIONS: RUQ PAIN; ABNORMAL GB ON CT TECHNIQUE: Real-time focused scanning was performed of the abdomen, with image documentation. COMPARISON: [facility], CT, CT CHEST ABD PEL WO CON, 06/08/2023, 19:47. FINDINGS: The liver is normal in echotexture and size, free of intrahepatic biliary distension. The gallbladder contains 2 visualized nonobstructive partially calcified gallstones the largest measuring up to 10 mm. Gallbladder wall thickness is abnormal at 8.5 mm. There is no adjacent free fluid or tenderness. The pancreas visualized appears normal. IMPRESSION: Gallstones partially calcified within the gallbladder lumen with associated abnormal gallbladder wall thickening up to 8.5 mm. The absence of adjacent free fluid and focal tenderness suggests chronic cholecystitis, as does the nonobstructive nature of these 2 stones. Dictated by: Rudy Escobar M.D. on 06/08/2023 at 21:48 Approved by: Rudy Escobar M.D. on 06/08/2023 at 21:50
[2023-06-08 20:45] LABS: Adenovirus Not Detected (Not Detect); B. parapertussis Not Detected (Not Detecte); Bordetella pertussis Not Detected (Not Detecte); Chlamydophila pneumoniae Not Detected (Not Detect); Coronavirus 229E Not Detected (Not Detect); Coronavirus HKU1 Not Detected (Not Detect); Coronavirus NL 63 Not Detected (Not Detect); Coronavirus OC43 Not Detected (Not Detect); Human Metapneumovirus Not Detected (Not Detect); Human Rhinovirus/Enterovirus Not Detected (Not Detect); Influenza A Not Detected (Not Detect); Influenza B Not Detected (Not Detect); Mycoplasma pneumoniae Not Detected (Not Detect); Parainfluenza Virus 1 Not Detected (Not Detect); Parainfluenza Virus 2 Not Detected (Not Detect); Parainfluenza Virus 3 Not Detected (Not Detect); Parainfluenza Virus 4 Not Detected (Not Detect); Respiratory Syncytial Virus Not Detected (Not Detect); SARS- CoV-2 Not Detected (Not Detecte)
--- NOTE | 2023-06-08 22:05 | PC.NURSE ---
[address] [facility] will re-evaluate in the morning for bed
[2023-06-08] MEDS: levoFLOXacin 500 MG/100 ML PIGGYBACK 100 MG IV (22:40)
[2023-06-09] VITALS (39 sets, daily range): BP systolic 112–167; BP diastolic 55–96; PULSE 78–134; RESP 12–24; O2SAT 93–98
[2023-06-09] MEDS: ACETAMINOPHEN 325 MG TABLET 650 MG PO ×2 (01:15→12:30)
--- NOTE | 2023-06-09 09:01 | DI.NM.S_ITS ---
PROCEDURE: NM HIDA NO EJECTION FRACTION RADIOPHARMACEUTICAL: 5.5 mCi Tc-99m mebrofenin IV. INDICATIONS: Cholecystitis TECHNIQUE: Following intravenous administration of Tc-99m mebrofenin, sequential anterior abdominal images were obtained through at least 60 minutes. COMPARISON: [facility], CT, CT CHEST ABD PEL WO CON, 06/08/2023, 19:47. FINDINGS: There is normal tracer uptake and excretion by the liver. There is normal visualization of intrahepatic ducts, common bile duct, without visualization gallbladder. There is normal tracer excretion into duodenum. IMPRESSION: Nonvisualization of the gallbladder. However, imaging was terminated at 60 minute secondary to patient's ability to tolerate exam. Cholecystitis cannot be excluded. Dictated by: Lelo Beckwith M.D. on 06/09/2023 at 16:46 Approved by: Lelo Beckwith M.D. on 06/09/2023 at 16:47
[2023-06-09] MEDS: ONDANSETRON 4 MG/2 ML INJ IV (12:43)
--- NOTE | 2023-06-09 16:28 | PC.NURSE ---
Followed up with [facility]. Pt is still on their list, but waiting for doctors to follow up. No new updates for now.
== END 2023-06-09 18:38 | disposition home or self-care (01) ==
PROVIDERS: Emergency Provider Emergency Medicine; PCP Internal Medicine Endocrinology, Diabetes & Metabolism
DX: K81.0 Acute cholecystitis (principal); R10.9 Unspecified abdominal pain; R53.1 Weakness; Z20.822 Contact with and (suspected) exposure to COVID-19
CPT/HCPCS: 36415; 70450; 71250; 74176; 76705; 78226; 80053; 81001; 83690; 85025; 87633; 93005; 96365; 96375; 99284; A9537; J1720; J1956; J2405

== ENCOUNTER 2023-06-10 15:01 | Observation (INO) | payer MEDICARE, SELFPAY ==
[2023-06-10] VITALS (13 sets, daily range): BP systolic 94–125; BP diastolic 48–71; PULSE 87–101; RESP 13–33; TEMP 36.3–37; O2SAT 89–99; BMI 20.1; BMI 19.1
--- NOTE | 2023-06-10 15:06 | DI.US.S_ITS ---
PROCEDURE: US ABDOMEN LIMITED INDICATIONS: WORSENING RUQ PAIN TECHNIQUE: Real-time scanning was performed of the abdominal and retroperitoneal organs, with image documentation. COMPARISON: [facility], US, US ABDOMEN LIMITED, 06/08/2023, 21:10. FINDINGS: Liver: Liver is normal in size and homogeneous in echotexture. Gallbladder: Cholelithiasis. Wall thickening with wall striation, measuring up to 7 millimeters. Negative sonographic Neff sign or pericholecystic edema. Biliary ducts: Intrahepatic bile ducts are non-dilated. Extrahepatic bile duct caliber measures 5 mm. Normal is 6-7 mm or less in diameter, or 10 mm or less post-cholecystectomy. Pancreas: Visualized portions of the pancreas are sonographically normal. IMPRESSION: Cholelithiasis with gallbladder wall thickening and wall striation, which remains concerning for cholecystitis. Dictated by: Martinez Manning M.D. on 06/10/2023 at 15:56 Approved by: Martinez Manning M.D. on 06/10/2023 at 15:58
[2023-06-10 15:38] LABS: INR 1.1 (0.9-1.3)
[2023-06-10 15:39] LABS: Add Manual Diff / Slide Review NO; Basophils Absolute Auto 0 /uL (0-100); Basophils Percent Auto 0.2 % (0-2); Eosinophils Absolute Auto 100 /uL (0-450); Eosinophils Percent Auto 0.9 % (2-4); Hematocrit 36.5 % (36-46); Lymphocytes Absolute Auto 500 /uL (1100-4500); Lymphocytes Percent Auto 9.5 % (25-40); Mean Corpuscular Hemoglobin 28.9 PG (26-34); Mean Corpuscular Volume 87.7 fL (80-100); Monocytes Absolute Auto 500 /uL (0-900); Monocytes Percent Auto 9.2 % (3-14); Neutrophils Absolute Auto 4500 /uL (1500-7000); Neutrophils Percent Auto 80.2 % (50-75); Platelet Count 163 X10^3/uL (150-400); Red Blood Cell Count 4.16 X10^6/uL (4.0-5.2); White Blood Cell Count 5.6 X10^3/uL (4.5-11.0)
[2023-06-10 15:40] LABS: Alanine Aminotransferase 32 IU/L (<35); Albumin 3.6 g/dL (3.5-5.0); Albumin Globulin Ratio 1.2 (1.0-2.8); Alkaline Phosphatase 93 U/L (38-126); Aspartate Aminotransferase 53 IU/L (14-36); BUN Creatinine Ratio 27.6 (6-22); Blood Urea Nitrogen 24 mg/dL (7-17); Carbon Dioxide 33 mmol/L (22-32); Chloride 98 mmol/L (98-107); Estimated Glomerular Filt Rate > 60 mL/min (>60); Globulin 2.9 g/dL (1.7-4.1); Glucose 90 mg/dL (80-110); HEMOLYSIS < 15 (0-50); Lipase 62 U/L (23-300); Potassium 3.5 mmol/L (3.4-5.1); Sodium 136 mmol/L (137-145); Total Protein 6.5 g/dL (6.3-8.2)
[2023-06-10] MEDS: MORPHINE 2 MG/ML INJ IV ×2 (17:39→20:20)
[2023-06-10] MEDS: ONDANSETRON 4 MG/2 ML INJ IV (17:39)
--- NOTE | 2023-06-10 18:24 | PC.NURSE ---
Pt states her pain is 7/10 and that she is comfortable.
--- NOTE | 2023-06-10 18:25 | ED_ITS ---
HPI - General Adult General Chief complaint: Abdominal Pain Stated complaint: Abd pain Time Seen by Provider: 06/10/23 15:38 Source: patient and EMS Mode of arrival: EMS History of Present Illness HPI narrative: Patient is an 82-year-old female who was here couple days ago for abdominal discomfort. Had a fairly extensive workup which was some concern about potential gallbladder pathology. General surgery was consulted. Plan was to se nd patient home with antibiotics. She has been taking the antibiotics. States that today she tried to eat something and had a increase in the discomfort. No vomiting. Is a same discomfort that she had a couple days ago. No diarrhea. No urinary symptoms. No fevers. Related Data Home Medications Medication Instructions Recorded Confirmed atorvastatin 80 mg tablet 80 mg PO DAILY 06/10/23 06/10/23 escitalopram oxalate 20 mg tablet 20 mg PO DAILY 06/10/23 06/10/23 hydrochlorothiazide 25 mg tablet 25 mg PO DAILY 06/10/23 06/10/23 hydrocortisone 10 mg tablet 20 mg PO DAILY 06/10/23 06/10/23 Previous Rx's Medication Instructions Recorded levofloxacin 500 mg tablet 500 mg PO DAILY 7 days #7 tabs 06/09/23 Allergies Allergy/AdvReac Type Severity Reaction Status Date / Time azithromycin Allergy Verified 06/10/23 15:10 [From Zithromax Z-Anthony] clarithromycin [From Biaxin] Allergy Verified 06/10/23 15:10 Iodinated Contrast Media Allergy Verified 06/10/23 15:10 Penicillins Allergy Verified 06/10/23 15:10 Sulfa (Sulfonamide Allergy Verified 06/10/23 15:10 Antibiotics) Review of Systems Constitutional Constitutional: Reports system reviewed and no additional complaints, except as documented Cardiovascular Cardiovascular: Reports system reviewed and no additional complaints, except as documented Respiratory Respiratory: Reports system reviewed and no additional complaints, except as documented Gastrointestinal Gastrointestinal: Reports system reviewed and no additional complaints, except as documented Genitourinary Genitourinary: Reports system reviewed and no additional complaints, except as documented Integumentary/Breasts Skin/Breast: Reports system reviewed and no additional complaints, except as documented Neurologic Neurologic: Reports system reviewed and no additional complaints, except as documented Hematologic/Lymphatic On Anticoagulants: No Patient History Medical History History of anemia due to vitamin B12 deficiency History of Bobby disease History of pernicious anemia History of stroke Pheochromocytoma Surgical History History of adrenal surgery History of intracranial aneurysm Family History (Updated 06/10/23 @ 22:09 by VIET Mcnamara) Father Congestive heart failure Mother Pheochromocytoma Social History household members: spouse Smoking Status: Never smoker alcohol intake: current Smoking Status: Never smoker alcohol intake frequency: holidays/special occasions only Substance Use Type: does not use Exam Initial Vital Signs Initial Vital Signs: Vital Signs Temperature 97.4 F L 06/10/23 15:10 Pulse Rate 87 06/10/23 15:10 Respiratory Rate 18 06/10/23 15:10 Blood Pressure 104/71 06/10/23 15:10 Pulse Oximetry 95 06/10/23 15:10 Oxygen Delivery Method Room Air 06/10/23 15:10 Const General: cooperative, comfortable and No ill appearing HENRI Head: normal to inspection and normocephalic Resp Effort & Inspection: normal respiratory effort Auscultation: clear to auscultation bilaterally Cardio Rate: regular rate GI Inspection: normal to inspection and non-distended Palpation: tender (Right upper quadrant/epigastric region) Skin General: no rashes or lesions noted Neuro General: patient alert, patient awake and moves all extremities Speech: speech normal Extrem General: normal to inspection and capillary refill normal Course Orders Ordered: ED Orders 06/10/23 15:06 US abdomen limited Stat 06/10/23 15:17 Complete Blood Count AUTO DIFF Stat Comprehensive Metabolic Panel Stat Lipase Stat Prothrombin Time INR Stat 06/10/23 15:50 EKG-12 Lead Stat 06/10/23 18:30 Consult to General Surgery Stat Acetaminophen (Acetaminophen 325 Mg Tablet) 650 mg PO Q6H PRN PRN Reason: Fever/Mild Pain (1-3) Hydrocodone Bitart/Acetaminophen (Hydrocodone/Acet 5/325 Tablet) 2 tab PO Q4H PRN PRN Reason: Pain, Severe 5-10 Last Admin: 06/10/23 21:35 Dose: 2 tab Documented By: SR Al Hydrox/Mg Hydrox/Simethicone (Mag Hydrox/Alum/Simeth 30 Ml Udc) 30 ml PO Q6HR PRN PRN Reason: Dyspepsia Calcium Carbonate (Calcium Carbonate 500 Mg Tab) 1,000 mg PO Q4HR PRN PRN Reason: Dyspepsia Docusate Sodium (Docusate 100 Mg Capsule) 100 mg PO BID [facility] Hydromorphone HCl (Hydromorphone 0.5 Mg Inj) 0.5 mg IV Q4H PRN PRN Reason: Pain, Severe (7-10) Dextrose/Sodium Chloride (Dextrose 5%-0.9% Ns) 1,000 mls @ 60 mls/hr IV CONT [facility] Last Admin: 06/10/23 21:24 Dose: 60 mls/hr Documented By: SR Levofloxacin (Levaquin) 750 mg in 150 mls @ 100 mls/hr IV Q24H [facility] Last Admin: 06/10/23 21:24 Dose: 100 mls/hr Documented By: Naloxone HCl (Naloxone 0.4 Mg/Ml Vial) 0.2 mg IV Q2MIN PRN PRN Reason: Opiate Reversal Ondansetron HCl (Ondansetron 4 Mg Odt) 4 mg PO NOW PRN PRN Reason: Nausea And Vomiting Ondansetron HCl (Ondansetron 4 Mg/2 Ml Inj) 4 mg IV NOW PRN PRN Reason: Nausea And Vomiting Last Admin: 06/10/23 17:39 Dose: 4 mg Documented By: FABY Ondansetron HCl (Ondansetron 4 Mg/2 Ml Inj) 4 mg IV Q8HR PRN PRN Reason: Nausea And Vomiting Sennosides (Sennosides 8.6 Mg Tablet) 17.2 mg PO BEDTIME [facility] Last Admin: 06/10/23 21:35 Dose: 17.2 mg Documented By: SR Discontinued Medications Morphine Sulfate (Morphine 2 Mg/Ml Inj) 2 mg IV NOW ONE Stop: 06/10/23 17:34 Last Admin: 06/10/23 17:39 Dose: 2 mg Documented By: FABY Morphine Sulfate (Morphine 2 Mg/Ml Inj) 2 mg IV NOW ONE Stop: 06/10/23 20:05 Last Admin: 06/10/23 20:20 Dose: 2 mg Documented By: Vital Signs Vital signs: Vital Signs - 8 hr 06/10/23 16:00 06/10/23 16:45 06/10/23 17:22 Pulse Rate 87 90 101 H Respiratory Rate 22 22 33 H Blood Pressure 104/57 L 122/54 L Pulse Oximetry 99 89 L Oxygen Delivery Method Room Air 06/10/23 17:30 06/10/23 17:40 06/10/23 17:40 Pulse Rate 100 H 98 H Respiratory Rate 27 H 14 Blood Pressure 114/57 L Pulse Oximetry 93 94 Oxygen Delivery Method Room Air 06/10/23 18:00 06/10/23 18:00 06/10/23 18:30 Pulse Rate 95 H Respiratory Rate 14 Blood Pressure 108/55 L 116/56 L Pulse Oximetry 95 Oxygen Delivery Method Room Air 06/10/23 18:30 06/10/23 19:00 06/10/23 19:00 Pulse Rate 93 H 92 H Respiratory Rate 13 22 Blood Pressure 104/51 L Pulse Oximetry 93 93 Oxygen Delivery Method 06/10/23 19:30 06/10/23 19:30 Pulse Rate 92 H Respiratory Rate 22 Blood Pressure 111/57 L Pulse Oximetry 93 Oxygen Delivery Method Room Air Medical Decision Making Medical Records Medical records reviewed: Yes I reviewed the patient's medical records. Lab Data Lab results reviewed: Yes I reviewed the patient's lab results. 06/10/23 15:17 06/10/23 15:17 Labs: Lab Results 06/10/23 06/10/23 06/10/23 Range/Units 15:17 15:17 15:17 WBC 5.6 (4.5-11.0) X10^3/uL RBC 4.16 (4.0-5.2) X10^6/uL Hgb 12.0 (12.0-16.0) g/dL Hct 36.5 (36-46) % MCV 87.7 (80-100) fL MCH 28.9 (26-34) PG MCHC 33.0 (30-36) % RDW 18.0 H (11.6-14.8) % Plt Count 163 (150-400) X10^3/uL Neut % (Auto) 80.2 H (50-75) % Lymph % (Auto) 9.5 L (25-40) % [place] % (Auto) 9.2 (3-14) % Eos % (Auto) 0.9 L (2-4) % Baso % (Auto) 0.2 (0-2) % Neut # (Auto) 4500 (8707-9318) /uL Lymph # (Auto) 500 L (5288-9480) /uL [place] # (Auto) 500 (0-900) /uL Eos # (Auto) 100 (0-450) /uL Baso # (Auto) 0 (0-100) /uL PT 13.0 H (10.1-12.7) SECONDS INR 1.1 (0.9-1.3) Sodium 136 L (137-145) mmol/L Potassium 3.5 (3.4-5.1) mmol/L Chloride 98 (98-107) mmol/L Carbon Dioxide 33 H (22-32) mmol/L BUN 24 H (7-17) mg/dL Creatinine 0.87 (0.52-1.04) mg/dL Estimated GFR > 60 (>60) mL/min BUN/Creatinine Ratio 27.6 H (6-22) Glucose 90 (80-110) mg/dL Calcium 9.0 (8.4-10.2) mg/dL Total Bilirubin 1.0 (0.2-1.3) mg/dL AST 53 H (14-36) IU/L ALT 32 (<35) IU/L Alkaline Phosphatase 93 (38-126) U/L Total Protein 6.5 (6.3-8.2) g/dL Albumin 3.6 (3.5-5.0) g/dL Globulin 2.9 (1.7-4.1) g/dL Albumin/Globulin Ratio 1.2 (1.0-2.8) Lipase 62 (23-300) U/L Imaging Data US - abdomen: Radiologist's Impression: PROCEDURE:? US ABDOMEN LIMITED ? INDICATIONS:? WORSENING RUQ PAIN ? TECHNIQUE:? Real-time scanning was performed of the abdominal and retroperitoneal organs, with image documentation.? ? COMPARISON:? [facility], , US ABDOMEN LIMITED, 06/08/2023, 21:10. ? FINDINGS:? ? Liver:? Liver is normal in size and homogeneous in echotexture.? ? Gallbladder:? Cholelithiasis.? Wall thickening with wall striation, measuring up to 7 millimeters.? Negative sonographic Neff sign or pericholecystic edema. ? Biliary ducts:? Intrahepatic bile ducts are non-dilated.? Extrahepatic bile duct caliber measures 5 mm.? Normal is 6-7 mm or less in diameter, or 10 mm or less post-cholecystectomy.? ? Pancreas:? Visualized portions of the pancreas are sonographically normal.? ? IMPRESSION:? Cholelithiasis with gallbladder wall thickening and wall striation, which remains concerning for cholecystitis. ECG Data Attestation: I personally reviewed and interpreted this ECG as follows: Interpretation: Sinus rhythm Ventricular rate 86 Frequent PVCs Normal axis Normal QTC No ST T wave changes MDM Narrative Medical decision making narrative: Ultrasound today is similar to prior with concerns of acute cholecystitis. She also had a HIDA scan a couple days ago which showed acute cholecystitis as well. Her LFTs are unremarkable. Lipase is unremarkable. Does not have a leukocytosis. Did discuss the case with Dr. Ramesh on-call for General surgery who states the patient should be administered to the medicine service and she would consult with most likely surgical intervention tomorrow. Then discuss the case with BOBBY Briceño the night hospitalist who will admit for further evaluation. Discussed the need for admission with the patient and family. They expressed understanding and agreement with the plan. Discharge Plan Departure Patient Disposition: Admitted As Inpatient Clinical Impression: Acute cholecystitis Admit Date/Time: 06/10/23 19:32 Admit Provider: Pia Briceño
--- NOTE | 2023-06-10 18:54 | PM.CALLCOV.1 ---
Call Coverage Note Note Date of Patient Contact: 06/10/23 Time of Patient Contact: 18:54 Narrative of Care Provided: Bo Mcmillan 10 am tomorrow 06/11/23
--- NOTE | 2023-06-10 20:21 | PC.NURSE ---
Gave report to RYANN Amaro.
--- NOTE | 2023-06-10 20:35 | P.HP_ITS ---
History of Present Illness History of Present Illness Date Patient Seen: 06/10/23 Time Patient Seen: 20:35 Chief complaint: Abd pain Narrative: Mima Escalante is an 82-year-old female with a past medical history of stroke, intracranial aneurysm with coil and repair, pernicious anemia with B12 deficiency, [place]'s disease with an adrenal removal, and pheochromocytoma, who presented to the ED on 06/08 -D/C note per Dr. Gonzalez :Care was transitioned from Dr. Sierra at change of shift at 7:00 a.m. this morning.? She is felt to have acute cholecystitis, in the light of adrenal insufficiency, and pernicious anemia.? The initial plan was to transfer her to the [facility] for surgery.? She was started on Levaquin.? She underwent cortisone challenge yesterday.? I talked to her box sealing machine operator.? He Informed me that she passed the cortisone challenge, there is no adrenal insufficiency.? CT suggested acute cholecystitis.? Ultrasound showed gallstones, no entrapment at the neck.? There is gallbladder wall thickening, no pericholecystic fluid.? Her WBC count and LFTs are normal.? The case was reviewed with the on-call surgeon, Dr. Ramesh.? She is cholelithiasis, cholecystitis is not clear.? The patient is doing well with IV fluids.? She was made NPO.? HIDA scan was obtained.? The HIDA scan was nondiagnostic.? The case was then discussed with Dr. Ramesh once again.? Patient is tolerating p.o..? She is afebrile.? She is going to be discharged home for outpatient follow-up.? I will discharge her on Levaquin. Patient returned to the ED today after eating she developed increasing right upper quadrant abdominal pain with nausea. Abdominal ultrasound demonstrated cholelithiasis with gallbladder wall thickening and wall striations de monstrating acute cholecystitis. Dr. Ramesh was again consulted, she advise patient to be admitted for acute cholecystitis and to go to the OR tomorrow. On admit patient denies chest pain, shortness in breath, headache, changes in vision, difficulty swallowing, speech impairment, weakness, numbness, tingling, difficulty with ambulation, recent falls, head injury, LOC, fever, body aches, chills, cough, recent exposure to illness, vomiting, urinary incontinence/retention, dysuria, frequency, urgency, hematuria, bowel changes, constipation, incontinence, melena, rashes, recent changes to medication, illness, injury, or trauma. Patient's vitals are stable at the time of admit temp 97.4?, 122/54, 100, 27, 93% on room air. WBC is negative, CBC and CMP are unremarkable with the exception of BUN 24, AST 53. Patient admitted for acute cholecystitis- cholecystectomy tomorrow. [facility] Medical History History of anemia due to vitamin B12 deficiency History of Bobby disease History of pernicious anemia History of stroke Pheochromocytoma Surgical History History of adrenal surgery History of intracranial aneurysm Family History (Updated 06/10/23 @ 22:09 by VIET Mcnamara) Father Congestive heart failure Mother Pheochromocytoma Social History household members: spouse Smoking Status: Never smoker alcohol intake: current Meds Home Medications and Allergies Home Medications Medication Instructions Recorded Confirmed Type levofloxacin 500 mg tablet 500 mg PO DAILY 7 days #7 tabs 06/09/23 06/10/23 Rx atorvastatin 80 mg tablet 80 mg PO DAILY 06/10/23 06/10/23 History escitalopram oxalate 20 mg tablet 20 mg PO DAILY 06/10/23 06/10/23 History hydrochlorothiazide 25 mg tablet 25 mg PO DAILY 06/10/23 06/10/23 History hydrocortisone 10 mg tablet 20 mg PO DAILY 06/10/23 06/10/23 History Allergies Allergy/AdvReac Type Severity Reaction Status Date / Time azithromycin Allergy Verified 06/10/23 15:10 [From Zithromax Z-Anthony] clarithromycin [From Biaxin] Allergy Verified 06/10/23 15:10 Iodinated Contrast Media Allergy Verified 06/10/23 15:10 Penicillins Allergy Verified 06/10/23 15:10 Sulfa (Sulfonamide Allergy Verified 06/10/23 15:10 Antibiotics) Review of Systems Review of Systems Narrative: All 12 point systems reviewed with the patient and are negative except otherwise documented. Exam Vital Signs (past 8 hours): - 06/10/23 15:10 06/10/23 16:00 06/10/23 16:45 Temperature 97.4 F L Pulse Rate 87 87 90 Respiratory Rate 18 22 22 Blood Pressure 104/71 104/57 L 122/54 L Pulse Oximetry 95 99 Oxygen Delivery Method Room Air Room Air 06/10/23 17:22 06/10/23 17:30 06/10/23 17:40 Temperature Pulse Rate 101 H 100 H Respiratory Rate 33 H 27 H Blood Pressure 114/57 L Pulse Oximetry 89 L 93 Oxygen Delivery Method Room Air 06/10/23 17:40 06/10/23 18:00 06/10/23 18:00 Temperature Pulse Rate 98 H 95 H Respiratory Rate 14 14 Blood Pressure 108/55 L Pulse Oximetry 94 95 Oxygen Delivery Method Room Air 06/10/23 18:30 06/10/23 18:30 06/10/23 19:00 Temperature Pulse Rate 93 H Respiratory Rate 13 Blood Pressure 116/56 L 104/51 L Pulse Oximetry 93 Oxygen Delivery Method 06/10/23 19:00 06/10/23 19:30 06/10/23 19:30 Temperature Pulse Rate 92 H 92 H Respiratory Rate 22 22 Blood Pressure 111/57 L Pulse Oximetry 93 93 Oxygen Delivery Method Room Air 06/10/23 20:00 06/10/23 20:00 Temperature Pulse Rate 98 H Respiratory Rate 23 Blood Pressure 125/59 L Pulse Oximetry 91 Oxygen Delivery Method Oxygen Delivery Method Room Air Narrative Exam Narrative: General: Patient is a well-developed, well-nourished in no distress at this time. HEENT: Normocephalic, atraumatic, extraocular muscles intact, oral pharynx is clear and mucous membranes are moist. Neck is supple and symmetric, trachea is midline, no adenopathy, no thyroid enlargement, nontender, no masses palpated. Negative for JVD Chest: Normal AP diameter and contour without kyphoscoliosis, Equal chest rise without nasal flaring, retractions, tachypneic or labored breathing. Lungs: Auscultation of all lung rascon are clear without adventitious sounds, wheezes, rhonchi, or rales. Cardio: regular rate and rhythm without murmur, rubs, or gallops, no carotid bruit, no cardiac pulsations present. Abdomen: Soft diffuse tenderness greatest rt upper quad, positive Neff's sign, Bowel sounds are present in all 4 quadrants without guarding or rebound, no CVA tenderness. Musculoskeletal: Muscle strength and tone are equal, no deformity, crepitus, effusions, cyanosis, clubbing or edema present. Full range of motion intact radial and pedal pulses are normal. Skin: Warm dry and intact without rashes, ulcerations or petechiae. Neuro: Alert and orientated x3, moves all extremities, sensation to touch intact, no gross deficits noted of cranial nerves. Psych: Patient has a well-kept appearance, appropriate affect, mental status attitude thought context and judgment are appropriate for age. Objective Labs 06/10/23 15:17 06/10/23 15:17 Labs: Laboratory Results - last 24 hr 06/10/23 06/10/23 06/10/23 15:17 15:17 15:17 WBC 5.6 RBC 4.16 Hgb 12.0 Hct 36.5 MCV 87.7 MCH 28.9 MCHC 33.0 RDW 18.0 H Plt Count 163 Neut % (Auto) 80.2 H Lymph % (Auto) 9.5 L Lamar % (Auto) 9.2 Eos % (Auto) 0.9 L Baso % (Auto) 0.2 Neut # (Auto) 4500 Lymph # (Auto) 500 L Lamar # (Auto) 500 Eos # (Auto) 100 Baso # (Auto) 0 PT 13.0 H INR 1.1 Sodium 136 L Potassium 3.5 Chloride 98 Carbon Dioxide 33 H BUN 24 H Creatinine 0.87 Estimated GFR > 60 BUN/Creatinine Ratio 27.6 H Glucose 90 Calcium 9.0 Total Bilirubin 1.0 AST 53 H ALT 32 Alkaline Phosphatase 93 Total Protein 6.5 Albumin 3.6 Globulin 2.9 Albumin/Globulin Ratio 1.2 Lipase 62 Assessment & Plan Assessment & Plan narrative: Mima Escalante is an 82-year-old female with a past medical history of stroke, intracranial aneurysm with coil and repair, pernicious anemia with B12 deficiency, Bobby's disease with an adrenal removal, and pheochromocytoma, who is admitted for acute cholecystitis and planned cholecystectomy tomorrow by Dr. Ramesh. Cholecystitis, acute, present on admission * CT suggested acute cholecystitis.? * Ultrasound showed gallstones, no entrapment at the neck.? There is gallbladder wall thickening with while striation, no pericholecystic fluid.? * WBC count and LFTs are normal with exception AST 53 * Consult Dr. Ramesh -OR tomorrow * HIDA scan was nondiagnostic.? * NPO at midnight * Continue Levaquin IV 750 Q 24 hours * Manage pain and antiemetics History of Bobby's disease with adrenal removal, secondary to pheochromocytoma, chronic, present on admission * Per Dr. Gonzalez on 06/08: She underwent cortisone challenge yesterday.? I talked to her box sealing machine operator.? He Informed me that she passed the cortisone challenge, there is no adrenal insufficiency. * Patient's hydrocortisone had been approximately 5-10 mg daily was stopped yesterday. * Ordered a.m. cortisol level, * may consider steriod low stress dosing for surgery based on am cortisol level and patient symptoms. Currently patient demonstrates no symptoms of adrenal insufficiency/crisis Pernicious anemia with B12 deficiency, chronic, present on admission * Admit: HGB 12, HCT 36, platelets 163 * Ordered B12 Malnutrition, severe, acute on chronic, present on admission * BMI 19 * patient's malnutrition places them at high risk for medical and surgical complications in relation to acute illness/chronic illness. This increases the difficulty in complexity of medical management and increases the chances poor outcomes such as mortality and morbidity as well as impaired wound healing, and immune suppression. Hypertension, essential, chronic, present on admission * Hold HCTZ Hyperlipidemia, chronic, present on admission * Continue atorvastatin after surgery Depression, chronic, present on admission * Continue Lexapro Code status: Full Surrogate decision maker: Edin Boris spouse DVT/VTE prophylaxis: Holding medication due to pending surgery, SCDs only Disposition: Patient admitted to acute care for acute cholecystitis, with planned cholecystectomy tomorrow, expected length of stay to exceed 2 midnights. I have utilized all available immediate resources to obtain, update, or review the patient's current medications. I confirmed that the patient's advanced care plan is present, Code status is documented and/or surrogate decision maker is listed in the patient's medical record. I have personally reviewed patient's chart notes from PCP, specialists, diagnostic imaging, and laboratory results.
[2023-06-10] MEDS: DEXTROSE 5%-0.9% NS 1,000 ML 60 ML IV (21:24)
[2023-06-10] MEDS: levoFLOXacin 750 MG/150 ML PIGGYBACK 100 MG IV (21:24)
[2023-06-10] MEDS: SENNOSIDES 8.6 MG TABLET 17.2 MG PO (21:35)
[2023-06-10] MEDS: HYDROCODONE/ACET 5/325 TABLET 2 TAB PO (21:35)
[2023-06-11] VITALS (16 sets, daily range): BP systolic 112–152; BP diastolic 43–90; PULSE 54–99; RESP 12–22; TEMP 36.4–37.3; O2SAT 88–99; BMI 19.1
--- NOTE | 2023-06-11 | PATH_ITS ---
[facility] Accession Number: [id number] No. of containers..01 Tissue . 01 Material submitted: . gallbladder - GALLBLADDER . 01 Diagnosis: Gallbladder, Laparoscopic Subtotal Cholecystectomy: Fragments of apparent gallbladder with extensive necrosis and acute and chronic inflammation (gangrenous cholecystitis) with associated chronic cholecystitis and cholelithiasis. Separate fragments of fibroadipose tissue with organizing fat necrosis. Negative for neoplasia. MRV 06/17/2023 1721 Local . 01 Comment: It appears that much of the mucosal tissue is ulcerated/necrotic. The nonnecrotic areas of mucosa show extensive pyloric gland metaplasia. . 01 Electronically signed: . Dee Mccabe MD, Pathologist NPI- [id number] . 01 Gross description: . The specimen is received in formalin labeled with the patient's name, , and gallbladder consists of multiple de la o soft tissue fragments aggregating to 3.7 x 2.2 x 1.2 cm. Several brown-black round calculi are identified ranging from 0.1 to 0.9 cm in greatest dimension. No distinct serosa, mucosa, or cystic duct are identified. Sectioning reveal yellow to de la o soft tissue. The specimen is submitted entirely in cassettes A1-A4. ([id number]) /MRV 06/14/2023 1817 Local . 01 Pathologist provided ICD-10: K81.2 . 01 CPT . 144979 Specimen Comment: A courtesy copy of this report has been sent to [phone] Performed at: 01 [facility] [address] [place] [address] Suite [facility], [place], [place] [id number] MD Augustus Proctor MD Phone: [phone]
[2023-06-11 00:17] LABS: Vitamin B12 < 159 pg/mL (239-931)
[2023-06-11 07:16] LABS: Bacteria Urine Moderate (10-30); RBC Urine 1-5/HPF (0-5/HPF); Squamous Epithelial Cell Urine 0-1 /HPF (0-5/HPF); WBC Urine 5-10/HPF (0-5/HPF)
[2023-06-11 07:17] LABS: Amorphous Sediment Urine 2+; Culture Indicated Urine Specimen Cultured
[2023-06-11 07:23] LABS: Add Manual Diff / Slide Review NO; Basophils Absolute Auto 0 /uL (0-100); Basophils Percent Auto 0.1 % (0-2); Eosinophils Absolute Auto 0 /uL (0-450); Eosinophils Percent Auto 0.5 % (2-4); Hematocrit 33.7 % (36-46); Hemoglobin 11.2 g/dL (12.0-16.0); Lymphocytes Absolute Auto 300 /uL (1100-4500); Lymphocytes Percent Auto 3.8 % (25-40); Mean Corpuscular HGB Conc 33.3 % (30-36); Mean Corpuscular Hemoglobin 29.2 PG (26-34); Mean Corpuscular Volume 87.5 fL (80-100); Monocytes Absolute Auto 500 /uL (0-900); Monocytes Percent Auto 5.7 % (3-14); Neutrophils Absolute Auto 7900 /uL (1500-7000); Neutrophils Percent Auto 89.9 % (50-75); Platelet Count 174 X10^3/uL (150-400); Red Blood Cell Count 3.85 X10^6/uL (4.0-5.2); Red Cell Distribution Width 17.7 % (11.6-14.8); White Blood Cell Count 8.8 X10^3/uL (4.5-11.0)
[2023-06-11 07:28] LABS: INR 1.3 (0.9-1.3); Prothrombin Time 14.9 SECONDS (10.1-12.7)
[2023-06-11 07:33] LABS: BUN Creatinine Ratio 29.1 (6-22); Blood Urea Nitrogen 25 mg/dL (7-17); Calcium 8.6 mg/dL (8.4-10.2); Carbon Dioxide 31 mmol/L (22-32); Chloride 98 mmol/L (98-107); Estimated Glomerular Filt Rate > 60 mL/min (>60); Glucose 116 mg/dL (80-110); HEMOLYSIS < 15 (0-50); Magnesium 1.9 mg/dL (1.6-2.3); Potassium 3.3 mmol/L (3.4-5.1); Sodium 135 mmol/L (137-145)
--- NOTE | 2023-06-11 08:08 | P.HP_ITS ---
History of Present Illness History of Present Illness Date Patient Seen: 06/11/23 Time Patient Seen: 08:08 Chief complaint: Abd pain Narrative: Persistent RUQ and epigastric pain with nausea over the last several days. Has know gallstones. 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 Also pernicious anemia. Work up is suggestive of atypical acute cholecystitis in that there are some indeterminate issues in US and HIDA was incomplete. Increasing weakness and fatigue as she fails to improve. [facility] Medical History History of anemia due to vitamin B12 deficiency History of [place] disease History of pernicious anemia History of stroke Pheochromocytoma Surgical History History of adrenal surgery History of intracranial aneurysm Family History Father Congestive heart failure Mother Pheochromocytoma Social History household members: spouse Smoking Status: Never smoker alcohol intake: current Meds Home Medications and Allergies Home Medications Medication Instructions Recorded Confirmed Type levofloxacin 500 mg tablet 500 mg PO DAILY 7 days #7 tabs 06/09/23 06/10/23 Rx atorvastatin 80 mg tablet 80 mg PO DAILY 06/10/23 06/10/23 History escitalopram oxalate 20 mg tablet 20 mg PO DAILY 06/10/23 06/10/23 History hydrochlorothiazide 25 mg tablet 25 mg PO DAILY 06/10/23 06/10/23 History hydrocortisone 10 mg tablet 20 mg PO DAILY 06/10/23 06/10/23 History Allergies Allergy/AdvReac Type Severity Reaction Status Date / Time azithromycin Allergy Verified 06/10/23 15:10 [From Zithromax Z-Anthony] clarithromycin [From Biaxin] Allergy Verified 06/10/23 15:10 Iodinated Contrast Media Allergy Verified 06/10/23 15:10 Penicillins Allergy Verified 06/10/23 15:10 Sulfa (Sulfonamide Allergy Verified 06/10/23 15:10 Antibiotics) Review of Systems Review of Systems ROS: Yes All systems reviewed with the patient and are negative except as otherwise documented Exam Vital Signs (past 8 hours): - 06/11/23 03:04 Temperature 97.6 F Pulse Rate 91 H Respiratory Rate 18 Blood Pressure 113/52 L Pulse Oximetry 92 Oxygen Flow Rate 0 Oxygen Delivery Method Room Air Oxygen Flow Rate 0 Const General: cooperative and frail appearing Nutritional Appearance: thin HENMT Head: normocephalic and atraumatic Eyes General: appearance normal, both eyes and all related structures Sclera: sclerae normal Neck Neck: trachea midline Resp Effort & Inspection: normal respiratory effort and able to speak in complete sen tences Cardio Rate: regular rate Rhythm: regular rhythm GI Palpation: soft Skin General: atrophy Trauma: no lacerations or abrasions Hair: brittle Neuro General: patient alert, patient awake and patient oriented x3 Cognition: normal cognition Speech: speech normal Psych Appearance: grossly normal Mental Status: mental status grossly normal Affect: normal affect Judgment: judgment good Objective Labs 06/11/23 06:24 06/11/23 06:24 Labs: Laboratory Results - last 24 hr 06/10/23 06/10/23 06/10/23 15:00 15:17 15:17 WBC 5.6 RBC 4.16 Hgb 12.0 Hct 36.5 MCV 87.7 MCH 28.9 MCHC 33.0 RDW 18.0 H Plt Count 163 Neut % (Auto) 80.2 H Lymph % (Auto) 9.5 L Mcclain % (Auto) 9.2 Eos % (Auto) 0.9 L Baso % (Auto) 0.2 Neut # (Auto) 4500 Lymph # (Auto) 500 L Mcclain # (Auto) 500 Eos # (Auto) 100 Baso # (Auto) 0 PT 13.0 H INR 1.1 Sodium Potassium Chloride Carbon Dioxide BUN Creatinine Estimated GFR BUN/Creatinine Ratio Glucose Calcium Magnesium Total Bilirubin AST ALT Alkaline Phosphatase Total Protein Albumin Globulin Albumin/Globulin Ratio Lipase Vitamin B12 < 159 L Urine RBC Urine WBC Ur Squamous Epith Cells Amorphous Sediment Urine Bacteria Ur Culture Indicated? 06/10/23 06/11/23 06/11/23 15:17 06:24 06:24 WBC 8.8 D RBC 3.85 L Hgb 11.2 L Hct 33.7 L MCV 87.5 MCH 29.2 MCHC 33.3 RDW 17.7 H Plt Count 174 Neut % (Auto) 89.9 H Lymph % (Auto) 3.8 L [place]cl[place] % (Auto) 5.7 Eos % (Auto) 0.5 L Baso % (Auto) 0.1 Neut # (Auto) 7900 H Lymph # (Auto) 300 L Mcclain # (Auto) 500 Eos # (Auto) 0 Baso # (Auto) 0 PT 14.9 H INR 1.3 Sodium 136 L Potassium 3.5 Chloride 98 Carbon Dioxide 33 H BUN 24 H Creatinine 0.87 Estimated GFR > 60 BUN/Creatinine Ratio 27.6 H Glucose 90 Calcium 9.0 Magnesium Total Bilirubin 1.0 AST 53 H ALT 32 Alkaline Phosphatase 93 Total Protein 6.5 Albumin 3.6 Globulin 2.9 Albumin/Globulin Ratio 1.2 Lipase 62 Vitamin B12 Urine RBC Urine WBC Ur Squamous Epith Cells Amorphous Sediment Urine Bacteria Ur Culture Indicated? 06/11/23 06/11/23 06:24 06:45 WBC RBC Hgb Hct MCV MCH MCHC RDW Plt Count Neut % (Auto) Lymph % (Auto) Mcclain % (Auto) Eos % (Auto) Baso % (Auto) Neut # (Auto) Lymph # (Auto) Mcclain # (Auto) Eos # (Auto) Baso # (Auto) PT INR Sodium 135 L Potassium 3.3 L Chloride 98 Carbon Dioxide 31 BUN 25 H Creatinine 0.86 Estimated GFR > 60 BUN/Creatinine Ratio 29.1 H Glucose 116 H Calcium 8.6 Magnesium 1.9 Total Bilirubin AST ALT Alkaline Phosphatase Total Protein Albumin Globulin Albumin/Globulin Ratio Lipase Vitamin B12 Urine RBC 1-5/hpf Urine WBC 5-10/hpf H Ur Squamous Epith Cells 0-1 /hpf Amorphous Sediment 2+ Urine Bacteria Moderate (10-30) H Ur Culture Indicated? Specimen cultured Assessment & Plan Assessment & Plan narrative: Acute cholecystitis w/o sepsis complicated medical history that makes surgery higher risk. Risk and benefits discussed with family and patient. Plan: Julia bowers. Time Spent With Patient Time with patient: 30 to 49 minutes with 50% spent counseling/coordinating care Quality VTE Deep Vein Thrombosis/Pulmonary Embolism Present on Admission: No
[2023-06-11 08:35] LABS: Cortisol AM (Before 10AM) 29.5 ug/dL (4.46-22.7)
--- NOTE | 2023-06-11 08:59 | P.PN_ITS ---
Subjective Subjective Interval history: Patient is awaiting surgery later today. As expected is a little anxious. Family is with her and she has no new complaints. Exam Vital Signs (past 8 hours): - 06/11/23 03:04 Temperature 97.6 F Pulse Rate 91 H Respiratory Rate 18 Blood Pressure 113/52 L Pulse Oximetry 92 Oxygen Flow Rate 0 Oxygen Delivery Method Room Air Oxygen Flow Rate 0 Narrative Exam Narrative: General:? Patient is a well-developed, well-nourished in no distress at this time. HEENT:? Normocephalic, atraumatic, extraocular muscles intact Chest:? Normal AP diameter and contour without kyphoscoliosis, Equal chest rise without nasal flaring, retractions, tachypneic or labored breathing. Lungs:? Auscultation of all lung rascon are clear without adventitious sounds, wheezes, rhonchi, or rales. Cardio: regular rate and rhythm without murmur, rubs, or gallops Abdomen: Soft diffuse tenderness greatest rt upper quad, positive Neff's sign, Bowel sounds are present in all 4 quadrants without guarding or rebound Musculoskeletal:? Muscle strength and tone are equal, no deformity, crepitus, effusions, cyanosis, clubbing or edema present.? Full range of motion intact radial and pedal pulses are normal. Skin:? Warm dry and intact without rashes or lesions..? Neuro:? Alert and orientated x3, moves all extremities, sensation to touch intact, no gross deficits noted of cranial nerves. Psych:? appropriate affect, mental status attitude thought context and judgment are appropriate for age. Objective Labs 06/11/23 06:24 06/11/23 06:24 Labs: Laboratory Results - last 24 hr 06/10/23 06/10/23 06/10/23 15:00 15:17 15:17 WBC 5.6 RBC 4.16 Hgb 12.0 Hct 36.5 MCV 87.7 MCH 28.9 MCHC 33.0 RDW 18.0 H Plt Count 163 Neut % (Auto) 80.2 H Lymph % (Auto) 9.5 L Newton % (Auto) 9.2 Eos % (Auto) 0.9 L Baso % (Auto) 0.2 Neut # (Auto) 4500 Lymph # (Auto) 500 L Newton # (Auto) 500 Eos # (Auto) 100 Baso # (Auto) 0 PT 13.0 H INR 1.1 Sodium Potassium Chloride Carbon Dioxide BUN Creatinine Estimated GFR BUN/Creatinine Ratio Glucose Calcium Magnesium Total Bilirubin AST ALT Alkaline Phosphatase Total Protein Albumin Globulin Albumin/Globulin Ratio Lipase Vitamin B12 < 159 L Cortisol AM Sample Urine RBC Urine WBC Ur Squamous Epith Cells Amorphous Sediment Urine Bacteria Ur Culture Indicated? 06/10/23 06/11/23 06/11/23 15:17 06:24 06:24 WBC 8.8 D RBC 3.85 L Hgb 11.2 L Hct 33.7 L MCV 87.5 MCH 29.2 MCHC 33.3 RDW 17.7 H Plt Count 174 Neut % (Auto) 89.9 H Lymph % (Auto) 3.8 L Newton % (Auto) 5.7 Eos % (Auto) 0.5 L Baso % (Auto) 0.1 Neut # (Auto) 7900 H Lymph # (Auto) 300 L Newton # (Auto) 500 Eos # (Auto) 0 Baso # (Auto) 0 PT 14.9 H INR 1.3 Sodium 136 L Potassium 3.5 Chloride 98 Carbon Dioxide 33 H BUN 24 H Creatinine 0.87 Estimated GFR > 60 BUN/Creatinine Ratio 27.6 H Glucose 90 Calcium 9.0 Magnesium Total Bilirubin 1.0 AST 53 H ALT 32 Alkaline Phosphatase 93 Total Protein 6.5 Albumin 3.6 Globulin 2.9 Albumin/Globulin Ratio 1.2 Lipase 62 Vitamin B12 Cortisol AM Sample Urine RBC Urine WBC Ur Squamous Epith Cells Amorphous Sediment Urine Bacteria Ur Culture Indicated? 06/11/23 06/11/23 06/11/23 06:24 06:24 06:45 WBC RBC Hgb Hct MCV MCH MCHC RDW Plt Count Neut % (Auto) Lymph % (Auto) Newton % (Auto) Eos % (Auto) Baso % (Auto) Neut # (Auto) Lymph # (Auto) Newton # (Auto) Eos # (Auto) Baso # (Auto) PT INR Sodium 135 L Potassium 3.3 L Chloride 98 Carbon Dioxide 31 BUN 25 H Creatinine 0.86 Estimated GFR > 60 BUN/Creatinine Ratio 29.1 H Glucose 116 H Calcium 8.6 Magnesium 1.9 Total Bilirubin AST ALT Alkaline Phosphatase Total Protein Albumin Globulin Albumin/Globulin Ratio Lipase Vitamin B12 Cortisol AM Sample 29.5 H Urine RBC 1-5/hpf Urine WBC 5-10/hpf H Ur Squamous Epith Cells 0-1 /hpf Amorphous Sediment 2+ Urine Bacteria Moderate (10-30) H Ur Culture Indicated? Specimen cultured [facility] Medical History History of anemia due to vitamin B12 deficiency History of Pullman disease History of pernicious anemia History of stroke Pheochromocytoma Surgical History History of adrenal surgery History of intracranial aneurysm Family History Father Congestive heart failure Mother Pheochromocytoma Social History household members: spouse Smoking Status: Never smoker alcohol intake: current Assessment & Plan Assessment & Plan narrative: Cholecystitis, acute, present on admission * ?CT suggested acute cholecystitis.? * Ultrasound showed gallstones, no entrapment at the neck.? There is gallbladder wall thickening with while striation, no pericholecystic fluid.? * WBC count and LFTs are normal with exception AST 53 on presentation. Cortisol level this morning is high likely secondary to stress. Therefore no concerned about adrenal function. * Consulted Dr. Ramesh, general surgery-OR today * HIDA scan was nondiagnostic.? * NPO at midnight yesterday. * Continue Levaquin IV 750 Q 24 hours * Manage pain and antiemetics History of Pullman's disease with adrenal removal, secondary to pheochromocytoma, chronic, present on admission * Per Dr. Gonzalez on 06/08: She underwent cortisone challenge yesterday.? I talked to her middleware developer.? He Informed me that she passed the cortisone challenge, there is no adrenal insufficiency. And cortisol level today is high. * Patient's hydrocortisone had been approximately 5-10 mg daily was stopped yesterday. Patient given a dose of 15 mg today by surgeon. * Ordered a.m. cortisol level. Measured as high today. * may consider steriod low stress dosing for surgery based on am cortisol level and patient symptoms.? We will follow postop. Currently patient demonstrates no symptoms of adrenal insufficiency/crisis Pernicious anemia with B12 deficiency, chronic, present on admission * Admit:? HGB 12, HCT 36, platelets 163 * Ordered B12 which was low. We will order IM injection. Malnutrition, severe, acute on chronic, present on admission * BMI 19 * patient's malnutrition places them at high risk for medical and surgical complications in relation to acute illness/chronic illness.? This increases the difficulty in complexity of medical management and increases the chances poor outcomes such as mortality and morbidity as well as impaired wound healing, and immune suppression. Hypertension, essential, chronic, present on admission * Hold HCTZ Hyperlipidemia, chronic, present on admission * Continue atorvastatin after surgery Depression, chronic, present on admission * Continue Lexapro Follow labs and clinically. Code status:? Full Surrogate decision maker:? Edin Escalante spouse DVT/VTE prophylaxis:? Holding medication due to pending surgery, SCDs only Quality VTE Deep Vein Thrombosis/Pulmonary Embolism Present on Admission: No
[2023-06-11] MEDS: POTASSIUM CHLORIDE 20 MEQ/15 ML UDC 40 MEQ PO (09:10)
--- NOTE | 2023-06-11 09:11 | SUR.OPER ---
Addendum entered by Melodie Laurent R.N. 06/11/23 10:50: NO FOOTBOARD PER DR. COONEY. Original Note: Supine on padded OR bed, head on pillow, safety belt at thigh, left arm padded and tucked at side. Right arm secured on padded arm board <90 degrees abduction. Legs uncrossed. Padded footboard in place. Tape over blanket to secure lower legs.
--- NOTE | 2023-06-11 09:38 | CM.DANOTE ---
Met with patient, and daughter in room. Introduced to care coordination and planning. Patient agrees to assessment. Patient speaks quietly with southern accent. at bedside and fills in some information. Daughter Ondina states she lives nearby and is a support to them both who live in [facility] independent living. PCP: Jose Francisco Robert seen last week DME: [facility] Plan: To OR for Julia Camarillo this am. DCP: Home to established [facility] with additional support/HH RN. PT orders requested via provider. SNF list/HH list and senior resources provided at bedside at daughters request. Loyda Monteiro RN, CM Discharge Planning/Care Management CM Discharge Assessment Start: 06/11/23 09:33 Freq: Status: Active Protocol: Document 06/11/23 09:33 BQ (Rec: 06/11/23 09:38 BQ [id number]) Discharge Planning Assessment Assigned Graphics Programmer Loyda Monteiro RN, CM Advance Directives? No History Provided By Patient,Medical Record Has Patient been admitted in last 30 No days? Prior Living Arrangements Assisted Living Comment [facility] Household Members spouse Type of transporation used prior to Relies on Others admit Facility Name Admitted From: [facility] Willing to Return to Facility? Yes Independent with ADL's No Is patient alert and oriented? Yes Needs Assistance With Bathing,Meal Prep,Toileting, Managing Medications,Home Chores / Shopping Caregiver for Another No DME Already Rented / Owned [facility]WW / Walker Patient/Family Preference Snf Facility,Home with Home Health Barriers to Discharge Yes Comment Multiple recent falls according to daughter Discharge Plan Snf Facility Additional Comment TBD Medicare Choice List Provided Yes SNF/HH Preference Daughter would like information for SNF and HH agencies Whiteboard Updated in Patient Room with Yes name and ext. # of Graphics Programmer Review Status In Process Next Review Type Continued Stay Review
[2023-06-11] MEDS: LACTATED RINGERS 1,000 ML 42 ML IV ×2 (10:00→13:28)
[2023-06-11] MEDS: BUPIVACAINE 0.5% (PF) 30 ML, EPINEPHrine 0.15 MG INJ (11:00)
--- NOTE | 2023-06-11 12:10 | P.OP_ITS ---
Operative Date/Time/Diagnoses Date of procedure: 06/11/23 Time of procedure: 12:10 Pre-op diagnosis: Acute cholecystitis Post-op diagnosis: other Procedure & Clinicians Procedure: Subtotal laparoscopic cholecystectomy Same procedure as scheduled: Yes Indications: Evidence of acute cholecystitis Surgeon: eDe Ramesh Click Yes if Unassisted: Yes Anesthesia Type: General and Local Operative Notes Findings: Acute on chronic cholecystitis with evidence of prior rupture and abscess cavity containing multiple small stones. Adherence of colon, stomach, duodenum to the gallbladder. Cystic duct could not be identified. Subtotal cholecystectomy was carried out with removal of all visible stones. Closure Type: primary Specimen(s): other (Pieces of anterior wall of gallbladder) Prosthetic devices, grafts, tissues, transplants, or devices: 2 15. Silvestre drains Applied: drain(s) Estimated Blood Loss (mL): 30 Blood products transfused: none Procedure in detail: Preop diagnosis: Acute cholecystitis Postop diagnosis: Acute on chronic cholecystitis with hepatic abscess Operative procedure: Subtotal cholecystectomy Surgeon: Genesis Ramesh MD Anesthetic: General with ET tube intubation with local Findings: Acute rupture with free bile, abscess cavity distinct from gallbladder from prior rupture with purulence and gallstones. Remarkable amount of adhesions and woody textured tissue. Duodenum, stomach, colon all adherent. Procedure: Patient placed in a supine position. Prepped and draped sterile fashion to expose her abdomen. Infraumbilical port site was placed using open technique and a 12 mm port. Insufflation began all other ports were placed under direct vision including a 5 mm port in the midepigastrium which was later upsized to a 11 mm port. And 2 5 mm ports in the right lateral abdomen. I began with taking down adhesions and removing 1st the colon then the stomach to reveal a portion of the anterior wall of the gallbladder. I had already encountered an isolated abscess cavity that contained stones and murky fluid as well as free bile along the right side of the liver consistent with an acute rupture. I was unable to safely detach what may be duodenum to the outer wall of the lower portion of the gallbladder. At that time it was clearly unsafe to proceed with trying to isolate cystic duct. I opened the gallbladder retrieved stones from within the gallbladder which included 1 large stone in the neck. And removed in pieces the anterior wall using a LigaSure device. A 15 Lithuanian drain was placed into the operative bed and another was placed along the right edge of the liver going up to the dome. All stones were retrieved and placed into an Endo-Catch bag along with the pieces of gallbladder and pulled through the infraumbilical port site intact. The drains were placed through the existing 5 mm ports and sutured to the skin with 2-0 nylon. I then removed all ports and began closure. Closure consisted of interrupted 0 Vicryl for fascial closure. Skin was closed with a running 4-0 Vicryl. Steri-Strips and sterile dressings were placed. Patient was awakened, extubated, taken to recovery room in stable condition. Needle, instrument, sponge counts were correct. Blood loss: 30 mL Specimen: Gallstones and pieces of gallbladder.
[2023-06-11] MEDS: ONDANSETRON 4 MG/2 ML INJ IV (12:29)
--- NOTE | 2023-06-11 12:35 | SUR.PHASEI ---
Patient arousable to verbal stimuli; taking small sips of beverage without difficulty; following all commands when prompted; denies pain but c/o mild nausea. Medicated for nausea.
[2023-06-11] MEDS: CYANOCOBALAMIN 1,000 MCG/ML VIAL 1000 MCG IM (16:39)
[2023-06-11] MEDS: HYDROMORPHONE 0.5 MG INJ IV (16:41)
[2023-06-11] MEDS: SENNOSIDES 8.6 MG TABLET 17.2 MG PO (22:08)
[2023-06-11] MEDS: MELATONIN 3 MG TABLET 6 MG PO (23:07)
--- NOTE | 2023-06-12 02:14 | PC.NURSE ---
Pt mentation deteriorating compared to start of shift assessment. Pt is A/Ox2, reporting hallucinations of dark shadows/mists, refusing aspects of care or pain interventions. Pt makes statements inappropriate for the situation and stated, I have three recordings of you coming in here asking me where I am. I'm not stupid and it's the innuendo. Pt has made repeated attempts to exit the bed with increased agitation and hostility with each interaction with multiple staff members.
[2023-06-12 07:00] VITALS: BP 159/65; PULSE 78; RESP 18; TEMP 36.6; O2SAT 94
--- NOTE | 2023-06-12 07:41 | P.PN_ITS ---
Subjective Subjective Interval history: Patient feels much better than prior to the surgery. Eager to go home when she is surgically cleared to do so. Exam Vital Signs (past 8 hours): Fraction of Inspired Oxygen 32 SaO2/FiO2 Ratio 303 Oxygen Delivery Method Room Air Oxygen Flow Rate 0 Narrative Exam Narrative: General:? Patient is a well-developed, well-nourished in no distress at this time. HEENT:? Normocephalic, atraumatic, extraocular muscles intact Chest:? Normal AP diameter and contour without kyphoscoliosis, Equal chest rise without nasal flaring, retractions, tachypneic or labored breathing. Lungs:? Auscultation of all lung rascon are clear without adventitious sounds, wheezes, rhonchi, or rales. Cardio: regular rate and rhythm without murmur, rubs, or gallops Abdomen: Soft diffuse tenderness greatest rt upper quad with postsurgical dressing in place. Musculoskeletal:? Muscle strength and tone are equal bilaterally. Skin:? Warm dry and intact without rashes or lesions..? Neuro:? Alert and orientated x3, moves all extremities, sensation to touch intact, no gross deficits noted of cranial nerves. Psych:? appropriate affect, mental status attitude thought context and judgment are appropriate for age. Objective Labs 06/11/23 06:24 06/11/23 06:24 Labs: Laboratory Results - last 24 hr 06/11/23 06:24 Cortisol AM Sample 29.5 H [facility] Medical History History of anemia due to vitamin B12 deficiency History of Bobby disease History of pernicious anemia History of stroke Pheochromocytoma Surgical History History of adrenal surgery History of intracranial aneurysm Family History Father Congestive heart failure Mother Pheochromocytoma Social History household members: spouse Smoking Status: Never smoker alcohol intake: current Assessment & Plan Assessment & Plan narrative: Cholecystitis, acute, present on admission * ?CT suggested acute cholecystitis.? * Ultrasound showed gallstones, no entrapment at the neck.? There is gallbladder wall thickening with while striation, no pericholecystic fluid.? * WBC count and LFTs are normal with exception AST 53 on presentation.? Cortisol level this morning is high likely secondary to stress.? Therefore no concerned about adrenal function. * Consulted Dr. Ramesh, general surgery-OR yesterday * HIDA scan was nondiagnostic.? * NPO at midnight yesterday. * Continue Levaquin PO 750 Q 48 hours, per postop orders * Manage pain and antiemetics History of Bobby's disease with adrenal removal, secondary to pheochromocytoma, chronic, present on admission * Per Dr. Gonzalez on 06/08: She underwent cortisone challenge yesterday.? I talked to her hardwood sawyer.? He Informed me that she passed the cortisone challenge, there is no adrenal insufficiency.? And cortisol level yesterday was high. * Patient's hydrocortisone had been approximately 5-10 mg daily was stopped yesterday.? Patient given a dose of 15 mg yesterday by surgeon. Then further dose of 20 mg by change management administrator. Currently on 20 mg daily. * Ordered a.m. cortisol level.? Measured as high yesterday. * Currently patient demonstrates no symptoms of adrenal insufficiency/crisis Pernicious anemia with B12 deficiency, chronic, present on admission * Admit:? HGB 12, HCT 36, platelets 163 * Ordered B12 which was low.? We will order IM injection yesterday, and now po st-op daily IM 1000 mcg while in hospital. Malnutrition, severe, acute on chronic, present on admission * BMI 19 * patient's malnutrition places them at high risk for medical and surgical complications in relation to acute illness/chronic illness.? This increases the difficulty in complexity of medical management and increases the chances poor outcomes such as mortality and morbidity as well as impaired wound healing, and immune suppression. Hypertension, essential, chronic, present on admission * Hold HCTZ preop, reinitiate now Hyperlipidemia, chronic, present on admission * Continue atorvastatin after surgery Depression, chronic, present on admission * Continue Lexapro Follow labs and clinically. Code status:? Full Surrogate decision maker:? Edin Escalante spouse DVT/VTE prophylaxis:? Holding medication due to surgery, SCDs on Quality VTE Deep Vein Thrombosis/Pulmonary Embolism Present on Admission: No
[2023-06-12] MEDS: ESCITALOPRAM 10 MG TABLET 20 MG PO (09:35)
[2023-06-12] MEDS: ACETAMINOPHEN 325 MG TABLET 650 MG PO ×2 (09:37→21:03)
[2023-06-12] MEDS: CYANOCOBALAMIN 1,000 MCG/ML VIAL 1000 MCG IM (09:38)
[2023-06-12] MEDS: DOCUSATE 100 MG CAPSULE PO ×2 (09:38→21:03)
[2023-06-12 09:48] LABS: Add Manual Diff / Slide Review NO; Basophils Absolute Auto 0 /uL (0-100); Basophils Percent Auto 0.1 % (0-2); Eosinophils Absolute Auto 0 /uL (0-450); Hematocrit 32.3 % (36-46); Hemoglobin 10.7 g/dL (12.0-16.0); Lymphocytes Absolute Auto 400 /uL (1100-4500); Lymphocytes Percent Auto 3.2 % (25-40); Mean Corpuscular HGB Conc 33.1 % (30-36); Mean Corpuscular Hemoglobin 28.5 PG (26-34); Mean Corpuscular Volume 86.1 fL (80-100); Monocytes Absolute Auto 800 /uL (0-900); Monocytes Percent Auto 7.1 % (3-14); Neutrophils Absolute Auto 9900 /uL (1500-7000); Neutrophils Percent Auto 89.6 % (50-75); Platelet Count 181 X10^3/uL (150-400); Red Blood Cell Count 3.75 X10^6/uL (4.0-5.2)
[2023-06-12 09:58] LABS: Alanine Aminotransferase 57 IU/L (<35); Albumin 3.1 g/dL (3.5-5.0); Albumin Globulin Ratio 1.1 (1.0-2.8); Alkaline Phosphatase 112 U/L (38-126); Aspartate Aminotransferase 94 IU/L (14-36); BUN Creatinine Ratio 29.5 (6-22); Bilirubin Total 0.6 mg/dL (0.2-1.3); Blood Urea Nitrogen 23 mg/dL (7-17); Calcium 9.2 mg/dL (8.4-10.2); Carbon Dioxide 30 mmol/L (22-32); Chloride 99 mmol/L (98-107); Estimated Glomerular Filt Rate > 60 mL/min (>60); Globulin 2.9 g/dL (1.7-4.1); Glucose 141 mg/dL (80-110); HEMOLYSIS < 15 (0-50); Potassium 4.1 mmol/L (3.4-5.1); Sodium 134 mmol/L (137-145)
[2023-06-12 11:00] VITALS: BP 146/79; PULSE 76; RESP 15; TEMP 36.8; O2SAT 96
--- NOTE | 2023-06-12 11:21 | P.PN_ITS ---
Subjective Subjective Date Patient Seen: 06/12/23 Time Patient Seen: 11:22 Interval history: Had altered mental status last night, but almost baseline this morning. Some cramping pain intermittent but minimal pain(even feels better). Exam Vital Signs (past 8 hours): - 06/12/23 07:00 Temperature 97.9 F Pulse Rate 78 Respiratory Rate 18 Blood Pressure 159/65 H Pulse Oximetry 94 Oxygen Flow Rate 0 Fraction of Inspired Oxygen 32 SaO2/FiO2 Ratio 303 Oxygen Delivery Method Room Air Oxygen Flow Rate 0 Narrative Exam Narrative: Drains are serosang. abdomen benign with incisional and drain discomfort. Objective Labs 06/12/23 09:15 06/12/23 09:15 Labs: Laboratory Results - last 24 hr 06/12/23 06/12/23 09:15 09:15 WBC 11.0 RBC 3.75 L Hgb 10.7 L Hct 32.3 L MCV 86.1 MCH 28.5 MCHC 33.1 RDW 18.0 H Plt Count 181 Neut % (Auto) 89.6 H Lymph % (Auto) 3.2 L Hyde % (Auto) 7.1 Eos % (Auto) 0.0 L Baso % (Auto) 0.1 Neut # (Auto) 9900 H Lymph # (Auto) 400 L Hyde # (Auto) 800 Eos # (Auto) 0 Baso # (Auto) 0 Sodium 134 L Potassium 4.1 Chloride 99 Carbon Dioxide 30 BUN 23 H Creatinine 0.78 Estimated GFR > 60 BUN/Creatinine Ratio 29.5 H Glucose 141 H Calcium 9.2 Total Bilirubin 0.6 AST 94 H ALT 57 H Alkaline Phosphatase 112 Total Protein 6.0 L Albumin 3.1 L Globulin 2.9 Albumin/Globulin Ratio 1.1 [facility] Medical History History of anemia due to vitamin B12 deficiency History of Bobby disease History of pernicious anemia History of stroke Pheochromocytoma Surgical History History of adrenal surgery History of intracranial aneurysm Family History Father Congestive heart failure Mother Pheochromocytoma Social History household members: spouse Smoking Status: Never smoker alcohol intake: current Assessment & Plan Post-op Postoperative Procedures: Procedures Operation Date: 06/11/23 10:15 Actual Procedure Side Surgeon p Laparoscopic Cholecystectomy Dee Ramesh MD Postoperative day: 1 Postoperative status: doing well Postoperative status narrative: Labs are better than expected. altered mental status is predominantly age, environment and medication related (it is not the time to determine if mild dementia exist). Postoperative plan: routine post-op care Postoperative plan narrative: S/p laparoscopic subtotal cholecystectomy Change HCTZ to Lisinopril at patients request Stop steroids Stop all narcotics Haldol for agitation continue drains stop antibiotics Consult for home health Plan: possible discharge 1-2 days. Will go home with the medial drain for 10-14 days to watch for delayed bile leak. Time Spent With Patient Time with patient: 15-24 minutes Quality VTE Deep Vein Thrombosis/Pulmonary Embolism Present on Admission: No
--- NOTE | 2023-06-12 11:56 | PC.NURSE ---
Patient given tylenol this am. She has two PALMER drains putting out bloody drainage. into see patient and states that the lateral drain will be taken out tomorrow and she will keep the other drain and go home with it. Two lap incisions cdi, and dressing changed early this morning. Patient resting now.Family in room and supportive.
[2023-06-12] MEDS: lisinopriL 20 MG TABLET PO (12:26)
--- NOTE | 2023-06-12 14:59 | CM.DPC ---
Met with patient and her 2 daughters at bedside, arrived at end of conversation. Patient is alert, oriented to self, place, circumstance and date. She states she is relived the surgery is over and she looks forward to returning to her established [facility] at [facility]. She agrees to services for RN, PT and OT (awaiting evals). Call to Francine at [facility] at [phone] who confirms patient lives on the indpendent side, but they can coordinate additional paid services such as shower assistance, but they have no nurse staff industrial for drain managment. Daughter agree to stay with patient in immediate post op period at home. Daughter Mohini called back to office phone asking if her mom has a LTC policy. Deferred to her mom's personal documents or financial/ elder care rn telemetry medical service representative. Mohini confirms they have a local elder care attourney from about 10 years ago when they did all advance directives. Call to [facility] as per patient family choice.
[2023-06-12 16:00] VITALS: BP 171/82; PULSE 91; RESP 17; TEMP 36.6; O2SAT 97
[2023-06-12 20:56] VITALS: BP 146/74; PULSE 83; RESP 16; TEMP 36.3; O2SAT 95
[2023-06-12] MEDS: ATORVASTATIN 20 MG TABLET 80 MG PO (21:02)
[2023-06-12] MEDS: SENNOSIDES 8.6 MG TABLET 17.2 MG PO (21:03)
[2023-06-13 06:42] VITALS: BP 173/86; PULSE 85; RESP 17; TEMP 36.5; O2SAT 96
[2023-06-13 08:19] VITALS: BP 169/85; PULSE 94; TEMP 36.4; O2SAT 94
[2023-06-13] MEDS: lisinopriL 20 MG TABLET PO (08:33)
[2023-06-13] MEDS: CYANOCOBALAMIN 1,000 MCG/ML VIAL 1000 MCG IM (08:34)
[2023-06-13] MEDS: ACETAMINOPHEN 325 MG TABLET 650 MG PO (08:34)
[2023-06-13] MEDS: DOCUSATE 100 MG CAPSULE PO (08:34)
[2023-06-13] MEDS: ESCITALOPRAM 10 MG TABLET 20 MG PO (08:34)
--- NOTE | 2023-06-13 08:59 | PC.NURSE ---
Addendum entered by Scarlett Pemberton R.N. 06/13/23 13:00: Patients r.lateral drain removed and patient tolerated well. She will be going home soon. Original Note: Assess- Patient is alert and oriented x4. She is up in the chair, refused her HCTZ as she states that she does not take this anymore. She has incisions x2 with two PALMER drains present. They are putting out min bloody drainage. Given tylenol for discomfort of 3/10. Dressing to area's cdi. and daughter in visiting. Gave Vit injection to l.back of arm and patient tolerated this well.
--- NOTE | 2023-06-13 09:02 | PM.PNPO.1 ---
Subjective Subjective Date Patient Seen: 06/13/23 Time Patient Seen: 09:02 Interval history: Very up beat today. Frisky even. No complaints of pain. Exam Vital Signs (past 8 hours): - 06/13/23 06:42 06/13/23 08:19 Temperature 97.7 F 97.5 F L Pulse Rate 85 94 H Respiratory Rate 17 Blood Pressure 173/86 H 169/85 H Pulse Oximetry 96 94 Oxygen Flow Rate 0 0 Fraction of Inspired Oxygen 32 SaO2/FiO2 Ratio 303 Oxygen Delivery Method Room Air Oxygen Flow Rate 0 Narrative Exam Narrative: abdomen benign, drains show no bile Objective Labs 06/12/23 09:15 06/12/23 09:15 Labs: Laboratory Results - last 24 hr 06/12/23 06/12/23 09:15 09:15 WBC 11.0 RBC 3.75 L Hgb 10.7 L Hct 32.3 L MCV 86.1 MCH 28.5 MCHC 33.1 RDW 18.0 H Plt Count 181 Neut % (Auto) 89.6 H Lymph % (Auto) 3.2 L [place] % (Auto) 7.1 Eos % (Auto) 0.0 L Baso % (Auto) 0.1 Neut # (Auto) 9900 H Lymph # (Auto) 400 L [place] # (Auto) 800 Eos # (Auto) 0 Baso # (Auto) 0 Sodium 134 L Potassium 4.1 Chloride 99 Carbon Dioxide 30 BUN 23 H Creatinine 0.78 Estimated GFR > 60 BUN/Creatinine Ratio 29.5 H Glucose 141 H Calcium 9.2 Total Bilirubin 0.6 AST 94 H ALT 57 H Alkaline Phosphatase 112 Total Protein 6.0 L Albumin 3.1 L Globulin 2.9 Albumin/Globulin Ratio 1.1 [facility] Medical History History of anemia due to vitamin B12 deficiency History of Bobby disease History of pernicious anemia History of stroke Pheochromocytoma Surgical History History of adrenal surgery History of intracranial aneurysm Family History Father Congestive heart failure Mother Pheochromocytoma Social History household members: spouse Smoking Status: Never smoker alcohol intake: current Assessment & Plan Post-op Postoperative Procedures: Procedures Operation Date: 06/11/23 10:15 Actual Procedure Side Surgeon p Laparoscopic Cholecystectomy Dee Ramesh MD Postoperative day: 2 Postoperative status: doing well Postoperative status narrative: No complications/ S/P subtotal lap robinson Postoperative plan narrative: Ok to discharge from surgical standpoint. Needs to go home medial drain only. Drain to be removed in office after 10 days. Time Spent With Patient Time with patient: less than 15 minutes Quality VTE Deep Vein Thrombosis/Pulmonary Embolism Present on Admission: No
[2023-06-13 09:28] LABS: BUN Creatinine Ratio 30.9 (6-22); Blood Urea Nitrogen 21 mg/dL (7-17); Carbon Dioxide 29 mmol/L (22-32); Chloride 100 mmol/L (98-107); Estimated Glomerular Filt Rate > 60 mL/min (>60); Glucose 139 mg/dL (80-110); HEMOLYSIS 20 (0-50); Potassium 3.3 mmol/L (3.4-5.1); Sodium 134 mmol/L (137-145)
[2023-06-13 09:29] LABS: Add Manual Diff / Slide Review NO; Basophils Absolute Auto 0 /uL (0-100); Basophils Percent Auto 0.1 % (0-2); Eosinophils Absolute Auto 0 /uL (0-450); Eosinophils Percent Auto 0.1 % (2-4); Hematocrit 34.6 % (36-46); Hemoglobin 11.4 g/dL (12.0-16.0); Lymphocytes Absolute Auto 1000 /uL (1100-4500); Lymphocytes Percent Auto 7.9 % (25-40); Mean Corpuscular HGB Conc 32.9 % (30-36); Mean Corpuscular Hemoglobin 28.5 PG (26-34); Mean Corpuscular Volume 86.5 fL (80-100); Monocytes Absolute Auto 800 /uL (0-900); Monocytes Percent Auto 6.4 % (3-14); Neutrophils Absolute Auto 11300 /uL (1500-7000); Neutrophils Percent Auto 85.5 % (50-75); Platelet Count 220 X10^3/uL (150-400); Red Cell Distribution Width 18.1 % (11.6-14.8); White Blood Cell Count 13.2 X10^3/uL (4.5-11.0)
[2023-06-13 10:17] LABS: Vitamin B12 > 1000 pg/mL (239-931)
--- NOTE | 2023-06-13 11:17 | P.DS_ITS ---
History of Present Illness History of Present Illness Date Patient Seen: 06/13/23 Chief complaint: Abd pain Narrative: Patient feeling good and drains are draining appropriately. Surgeon had seen the patient and has agreed that the patient can go home, 1 drain will be removed prior to discharge in the other drain will be taken out in the surgeon's office in 10 days. Patient is independent mobile enough for discharge. Patient eager to go home. Discharge Providers Provider Date of admission: 06/10/23 19:32 Discharge Date: 06/13/23 Primary care physician: Jose Francisco Booth MD Consults: 06/10/23 18:30 Consult to General Surgery Stat Comment: Consulting Provider: Dee Ramesh Reason for consultation: Acute cholecystitis Has provider been notified: Yes 06/10/23 20:32 Consult to Dietitian, Adult Routine Comment: Reason For Exam: BMI 20.1 06/10/23 20:33 Consult to Physician Routine Comment: Consulting Provider: Dee Ramesh Reason for consultation: Acute cholecystitis Has provider been notified: Yes 06/12/23 11:18 Consult to Furnace Cleaner Routine Comment: needs home health 06/12/23 15:23 Consult to Home Health Routine Comment: S/P lap choli with drains x2 Reason For Exam: Home Health RN drain teach/wound care Discharge provider: Marnie Hyde MD Summary Hospital Course Discharge Diagnosis: Cholecystitis, acute, present on admission Gallstones with gallbladder wall thickening Abdominal pain Cholecystectomy 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 Gonzalez :Care was transitioned from Dr. Sierra at change of shift at 7:00 a.m. this morning.? She is felt to have acute cholecystitis, in the light of adrenal insufficiency, and pernicious anemia.? The initial plan was to transfer her to the [facility] for surgery.? She was started on Levaquin.? She underwent cortisone challenge on the day prior to presentation.? Her echocardiography technologist confirmed that she passed the cortisone challenge, there is no adrenal insufficiency.? CT suggested acute cholecystitis.? Ultrasound showed gallstones, no entrapment at the neck.? There is gallbladder wall thickening, no pericholecystic fluid.? Her WBC count and LFTs are normal.? The case was reviewed with the on-call surgeon, Dr. Ramesh.? She is cholelithiasis, cholecystitis is not clear.? The patient is doing well with IV fluids.? She was made NPO.? HIDA scan was obtained.? The HIDA scan was nondiagnostic.? The case was then discussed with Dr. Ramesh once again.? Patient is tolerating p.o..? She was afebrile.? She is going to be discharged home for outpatient follow-up.? She was discharged on Levaquin. However on June 10, 2023, patient returned to the ED due to after eating developing increasing right upper quadrant abdominal pain with nausea.? Abdominal ultrasound demonstrated cholelithiasis with gallbladder wall thickening and wall striations demonstrating acute cholecystitis.? Dr. Ramesh was again consulted, she advise patient to be admitted for acute cholecystitis and to go to the OR the following day. Cholecystectomy was scheduled for June 11, 2023. During surgery, it was noted that there was a abscess cavity that contained stones and murky fluid as well as free bile along the right side of the liver consistent with an acute rupture. There was significant amount of adhesions and not all of the gallbladder could be safely removed, but all the stones were removed and pieces of the gallbladder itself. To during were placed and 1 was removed prior to discharge. The 2nd drain will be removed in Dr. Ramesh's office within 10 days. Of note, during the hospital stay, patient's vitamin B12 level was 159. She subsequently received daily 3 doses of vitamin B12 with 1000 mcg IM and prior to discharge the patient's vitamin B12 level was greater than 1000. Patient should routinely have her B12 level measured Q monthly and if falls low, B12 injection would be appropriate. Levaquin 750 q.48h will be continued for 3 further doses following discharge. Status at Discharge Cognitive/behavioral status at discharge: at baseline, oriented Functional status at discharge: independent ambulation Overall status at discharge: patient is progressing back to baseline Time Spent with Patient Time spent: Greater than 30 minutes Exam Vital Signs (past 8 hours): - 06/13/23 06:42 06/13/23 08:19 Temperature 97.7 F 97.5 F L Pulse Rate 85 94 H Respiratory Rate 17 Blood Pressure 173/86 H 169/85 H Pulse Oximetry 96 94 Oxygen Flow Rate 0 0 Fraction of Inspired Oxygen 32 SaO2/FiO2 Ratio 303 Oxygen Delivery Method Room Air Oxygen Flow Rate 0 Narrative Exam Narrative: General:? Patient is a well-developed, well-nourished in no distress at this time. HEENT:? Normocephalic, atraumatic, extraocular muscles intact Chest:? Normal AP diameter and contour without kyphoscoliosis, Equal chest rise without nasal flaring, retractions, tachypneic or labored breathing. Lungs:? Auscultation of all lung rascon are clear without adventitious sounds, wheezes, rhonchi, or rales. Cardio: regular rate and rhythm without murmur, rubs, or gallops Abdomen: Soft minimal diffuse tenderness greatest rt upper quad with postsurgical dressing in place, drains in place. Musculoskeletal:? Muscle strength and tone are equal bilaterally. Skin:? Warm dry and intact without rashes or lesions..? Neuro:? Alert and orientated x3, moves all extremities, sensation to touch intact, no gross deficits noted of cranial nerves. Psych:? appropriate affect, mental status attitude thought context and judgment are appropriate for age. Objective Labs 06/13/23 09:13 06/13/23 09:13 Labs: Laboratory Results - last 24 hr 06/13/23 06/13/23 09:13 09:13 WBC 13.2 H RBC 4.00 Hgb 11.4 L Hct 34.6 L MCV 86.5 MCH 28.5 MCHC 32.9 RDW 18.1 H Plt Count 220 Neut % (Auto) 85.5 H Lymph % (Auto) 7.9 L [place] % (Auto) 6.4 Eos % (Auto) 0.1 L Baso % (Auto) 0.1 Neut # (Auto) 84657 H Lymph # (Auto) 1000 L [place] # (Auto) 800 Eos # (Auto) 0 Baso # (Auto) 0 Sodium 134 L Potassium 3.3 L Chloride 100 Carbon Dioxide 29 BUN 21 H Creatinine 0.68 Estimated GFR > 60 BUN/Creatinine Ratio 30.9 H Glucose 139 H Calcium 9.0 Vitamin B12 > 1000 H PFSH Medical History History of anemia due to vitamin B12 deficiency History of Bobby disease History of pernicious anemia History of stroke Pheochromocytoma Surgical History History of adrenal surgery History of intracranial aneurysm Family History Father Congestive heart failure Mother Pheochromocytoma Social History household members: spouse Smoking Status: Never smoker alcohol intake: current Discharge Plan Discharge Plan Patient Disposition: Home Discharge orders & Medications Prescriptions: New calcium carbonate 200 mg calcium (500 mg) Tablet,Chewable 1,000 mg PO Q4HR PRN (Reason: Dyspepsia) Qty: 100 0RF docusate sodium 100 mg Capsule 100 mg PO BID Qty: 60 0RF lisinopril 20 mg Tablet 20 mg PO DAILY Qty: 30 0RF alum-mag hydroxide-simeth [Mag-Al Plus] 200-200-20 mg/5 mL Suspension 30 ml PO Q6HR PRN (Reason: Dyspepsia) Qty: 355 0RF sennosides [senna] 8.6 mg Tablet 17.2 mg PO BEDTIME Qty: 30 0RF levofloxacin 750 mg tablet 750 mg PO Q48H Qty: 3 0RF Continued atorvastatin 80 mg tablet 80 mg PO DAILY Patient Comments: take 1 tablet by mouth once daily hydrochlorothiazide 25 mg tablet 25 mg PO DAILY Patient Comments: take 1 tablet by mouth once daily hydrocortisone 10 mg tablet 20 mg PO DAILY Patient Comments: take 2 tablets by mouth every morning DOUBLE DOSE WHEN ILL escitalopram oxalate 20 mg tablet 20 mg PO DAILY Patient Comments: take 1 tablet by mouth once daily lorazepam 0.5 mg tablet 0.5 mg PO TID PRN (Reason: Anxiety/Sleep) Patient Comments: take 1 tablet by mouth up to three times a day if needed for anxiety Discontinued levofloxacin 500 mg tablet 500 mg PO DAILY 7 Days Qty: 7 0RF Follow up/Referrals: Jose Francisco Booth MD [Primary Care Provider] - Dee Ramesh MD [Physician] - 1 Week (Needs drain removed no sooner than 10 days, watch for bile. Cystic duct not found. ) Visit Report/Discharge Packet Instructions: DI for Laparoscopy Stand Alone Forms: Patient Portal/API, Stroke Signs & Symptoms, Surgery Discharge Discharge Data Primary Care Provider: Jose Francisco Booth VTE Deep Vein Thrombosis/Pulmonary Embolism Present on Admission: No
--- NOTE | 2023-06-13 13:57 | CM.DPC ---
DCP Continued: FURNACE FIRER reviewed EMR. Patient lives independently at [facility] with and supportive daughter in area. [facility] reported they cannot accept due to staffing issues. FURNACE FIRER entered room and introduced self and role. Patient was resting in bed and appeared A/Ox4 and was accompanied by spouse. Patient reports being open to [facility] for drain management and nursing. Patient can get a ride from daughter. FURNACE FIRER called Francine at [facility] to update her on patient's discharge. Francine reported they would be in contact with her to see if she would need additional services while recovering. CM Dock Grader Odilia faxed initial information to [facility]. Oscar reports they likely can accept patient. Plan: patient will d/c today back to [facility] with family and [facility]. Transport with daughter. CM team will continue to follow closely. REJI Valencia
== END 2023-06-13 13:30 | disposition home health service (06) | DRG 425 ==
LOC: ED 19:27 → AC 06-11 08:43
PROVIDERS: Emergency Medicine; Neuromusculoskeletal Medicine, Sports Medicine; Surgery; Admitting Provider Nurse Practitioner Family; Emergency Provider Emergency Medicine; PCP Internal Medicine Endocrinology, Diabetes & Metabolism; Referring Provider Emergency Medicine; Visit Provider Nurse Practitioner Family
PROC: 0FT44ZZ Resection of Gallbladder, Percutaneous Endoscopic Approach (ICD-10-PCS; CPT 47562; principal; 2023-06-11 10:15)
DX: K80.12 Calculus of gallbladder with acute and chronic cholecystitis without obstruction (principal); K82.A1 Gangrene of gallbladder in cholecystitis; K82.A2 Perforation of gallbladder in cholecystitis; D51.0 Vitamin B12 deficiency anemia due to intrinsic factor deficiency; I10 Essential (primary) hypertension; E78.5 Hyperlipidemia, unspecified; F32.A Depression, unspecified; F41.9 Anxiety disorder, unspecified; Z86.73 Personal history of transient ischemic attack (TIA), and cerebral infarction without residual deficits; Z98.890 Other specified postprocedural states; Z86.39 Personal history of other endocrine, nutritional and metabolic disease; R53.1 Weakness; Z20.822 Contact with and (suspected) exposure to COVID-19
CPT/HCPCS: 47562; 36415; 70450; 71250; 74176; 76705; 78226; 80048; 80053; 81001; 81015; 82533; 82607; 82962; 83690; 83735; 85025; 85610; 87086; 87633; 93005; 94762; 96365; 96374; 96375; 96376; 99232; 99284; A9537; G0378; J0171; J0360; J1100; J1170; J1956; J2270; J2405; J2704; J3010; J3420

== ENCOUNTER → 2023-06-21 12:30 | Outpatient (ROUT) | payer MEDICARE, SELFPAY ==
[2023-06-21 12:55] LABS: Alanine Aminotransferase 18 IU/L (<35); Albumin 2.9 g/dL (3.5-5.0); Alkaline Phosphatase 87 U/L (38-126); Aspartate Aminotransferase 32 IU/L (14-36); BUN Creatinine Ratio 15.7 (6-22); Bilirubin Total 0.2 mg/dL (0.2-1.3); Blood Urea Nitrogen 8 mg/dL (7-17); Calcium 8.3 mg/dL (8.4-10.2); Carbon Dioxide 36 mmol/L (22-32); Chloride 99 mmol/L (98-107); Estimated Glomerular Filt Rate > 60 mL/min (>60); Globulin 2.9 g/dL (1.7-4.1); Glucose 93 mg/dL (80-110); HEMOLYSIS 33 (0-50); Potassium 3.5 mmol/L (3.4-5.1); Sodium 136 mmol/L (137-145); Total Protein 5.8 g/dL (6.3-8.2)
== END ==
PROVIDERS: Visit Provider Surgery
DX: Z98.890 Other specified postprocedural states (principal)
CPT/HCPCS: 80053

== ENCOUNTER → 2023-08-15 10:46 | Outpatient (CLI) | payer MEDICARE, SELFPAY ==
[2023-06-13 13:59] VITALS: BMI 19.1
[2023-08-15 12:35] LABS: Vitamin B12 420 pg/mL (239-931)
== END ==
PROVIDERS: PCP Nurse Practitioner; Referring Provider Family Medicine; Visit Provider Family Medicine
DX: D51.0 Vitamin B12 deficiency anemia due to intrinsic factor deficiency (principal)
CPT/HCPCS: 36415; 82607

== ENCOUNTER → 2023-09-29 15:39 | Outpatient (CLI) | payer MEDICARE, SELFPAY ==
[2023-06-13 13:59] VITALS: BMI 19.1
== END ==
PROVIDERS: PCP Nurse Practitioner; Referring Provider Family Medicine; Visit Provider Family Medicine
DX: I49.9 Cardiac arrhythmia, unspecified (principal)
CPT/HCPCS: 93246

== ENCOUNTER → 2023-11-04 09:25 | Outpatient (CLI) | payer MEDICARE, SELFPAY ==
[2023-06-13 13:59] VITALS: BMI 19.1
[2023-11-04 10:58] LABS: Add Manual Diff / Slide Review NO; Basophils Absolute Auto 100 /uL (0-100); Basophils Percent Auto 0.9 % (0-2); Eosinophils Absolute Auto 300 /uL (0-450); Eosinophils Percent Auto 3.5 % (2-4); Hematocrit 35.5 % (36-46); Hemoglobin 11.3 g/dL (12.0-16.0); Lymphocytes Absolute Auto 1500 /uL (1100-4500); Lymphocytes Percent Auto 19.2 % (25-40); Mean Corpuscular HGB Conc 31.9 % (30-36); Mean Corpuscular Hemoglobin 23.7 PG (26-34); Mean Corpuscular Volume 74.4 fL (80-100); Monocytes Absolute Auto 700 /uL (0-900); Monocytes Percent Auto 9.7 % (3-14); Neutrophils Absolute Auto 5100 /uL (1500-7000); Neutrophils Percent Auto 66.7 % (50-75); Platelet Count 228 X10^3/uL (150-400); Red Blood Cell Count 4.77 X10^6/uL (4.0-5.2); Red Cell Distribution Width 15.5 % (11.6-14.8); White Blood Cell Count 7.6 X10^3/uL (4.5-11.0)
[2023-11-04 11:13] LABS: Hemoglobin A1C% w Est Avg Glu 6.2 % (4.0-6.0)
[2023-11-04 11:28] LABS: HEMOLYSIS < 15 (0-50)
[2023-11-04 11:33] LABS: Alanine Aminotransferase 16 IU/L (<35); Albumin 3.6 g/dL (3.5-5.0); Albumin Globulin Ratio 1.3 (1.0-2.8); Alkaline Phosphatase 100 U/L (38-126); Aspartate Aminotransferase 29 IU/L (14-36); BUN Creatinine Ratio 18.1 (6-22); Bilirubin Total 0.6 mg/dL (0.2-1.3); Blood Urea Nitrogen 15 mg/dL (7-17); Calcium 9.7 mg/dL (8.4-10.2); Carbon Dioxide 28 mmol/L (22-32); Chloride 103 mmol/L (98-107); Cholesterol 121 mg/dL (140-199); Estimated Glomerular Filt Rate > 60 mL/min (>60); Globulin 2.7 g/dL (1.7-4.1); Glucose 91 mg/dL (80-110); HDL Cholesterol 41 mg/dL (40-60); LDL Cholesterol Calculated 57 mg/dL (<100); Potassium 4.3 mmol/L (3.4-5.1); Sodium 136 mmol/L (137-145); Total Protein 6.3 g/dL (6.3-8.2); Triglycerides 114 mg/dL (35-150)
[2023-11-04 12:01] LABS: TSH w/ Reflex to FT4 1.92 uIU/mL (0.47-4.68)
[2023-11-04 12:06] LABS: Cortisol AM (Before 10AM) 19.4 ug/dL (4.46-22.7)
[2023-11-04 13:15] LABS: Vitamin B12 325 pg/mL (239-931)
== END ==
PROVIDERS: PCP Nurse Practitioner; Referring Provider Nurse Practitioner; Visit Provider Nurse Practitioner
DX: K81.0 Acute cholecystitis (principal); R73.03 Prediabetes; E24.0 Pituitary-dependent Cushing's disease; R00.2 Palpitations; M81.0 Age-related osteoporosis without current pathological fracture; I10 Essential (primary) hypertension; D51.0 Vitamin B12 deficiency anemia due to intrinsic factor deficiency; E78.5 Hyperlipidemia, unspecified
CPT/HCPCS: 36415; 80053; 80061; 82533; 82607; 83036; 84443; 85025

== ENCOUNTER → 2024-06-04 11:01 | Outpatient (CLI) | payer MEDICARE, SELFPAY ==
[2023-06-13 13:59] VITALS: BMI 19.1
--- NOTE | 2024-06-04 11:03 | DI.MRI.S_ITS ---
PROCEDURE: MR HEAD/BRAIN WO CON INDICATIONS: monitor aneurysm, done annually TECHNIQUE: Non-contrast axial T1 spin echo, axial T2 fast spin echo, sagittal and axial FLAIR, coronal T2 fast spin echo, axial gradient echo, axial diffusion and ADC through the brain. COMPARISON: Outside Facility, RG, MRA NECK W/O CONTRAST, 12/23/2022, 16:12. Outside Facility, RG, MRI BRAIN WITHOUT CONTRAST, 12/23/2022, 17:26. [facility], MR, MR ANGIO HEAD WO CON, 06/04/2024, 11:47. Outside Facility, RG, MRI ANGIOGRAM HEAD W/O CONTRAST, 12/23/2022, 15:59. FINDINGS: Image quality: Diagnostic, with note made of motion artifact. CSF spaces: Ventricles appear symmetric in size and shape. Basal cisterns are patent. No extra-axial fluid collections. Brain: No intracranial bleeds or mass effects. There is cerebral volume loss for age. There are periventricular and deep white matter chronic small vessel ischemic changes. Brainstem appears normal. Diffusion-weighted images show no acute infarct. No chronic ischemic insults. Normal intravascular flow voids are present. Relatively prominent perivascular spaces are noted. Skull and face: Calvarial bone marrow is normal in signal. Orbits are normal. Sinuses: Sinuses and mastoids are clear. IMPRESSION: No significant abnormality is seen for age, with note made of brain parenchymal volume loss and chronic small vessel ischemic change. Dictated by: Manohar Guerra M.D. on 06/04/2024 at 11:20 Approved by: Manohar Guerra M.D. on 06/04/2024 at 11:25
--- NOTE | 2024-06-04 11:03 | DI.RAD.S_ITS ---
PROCEDURE: XR DEXA AXIAL SKELETON INDICATIONS: Osteoporosis COMPARISON: None. FINDINGS: Lumbar Spine: Bone mineral density 0.782 g/cm2, T score -2.4. Left Hip: Bone mineral density 0.75 to g/cm2, T score -1.6. Left Femoral Neck: Bone mineral density 0.595 g/cm2, T score -2.3. Right Hip: Bone mineral density 0.704 g/cm2, T score -1.9. Right Femoral Neck: Bone mineral density 0.565 g/cm2, T score -2.6. Fracture Risk Calculation (when applicable): 10-year fracture risk of a major osteoporotic fracture 25% and of a hip fracture 10%. (T score greater or equal to -1.0 to: NORMAL) (T score from -1.1 to -2.4: OSTEOPENIA) (T score less than or equal to -2.5: OSTEOPOROSIS) IMPRESSION: Osteoporosis. Follow-up guidelines as follows: Osteoporosis: Consider a repeat DEXA and Vertebral Fracture Assessment (VFA) exam in 2 years or sooner if medically necessary, to reassess this patient's status. Osteopenia: Consider a repeat DEXA in 2-3 years to reassess this patient's status, or if there is a new clinical indication. Normal: Consider a repeat DEXA in 5 years or sooner, or if there is a new clinical indication. All treatment decisions require clinical judgment and consideration of individual patient factors, including patient preferences, comorbidities, previous drug use, risk factors not captured in the FRAX model (e.g., frailty, falls, vitamin D deficiency, increased bone turnover, interval significant decline in bone density ) and possible under- or over-estimation of fracture risk by FRAX. In addition, the NOF Guide recommends that FDA-approved medical therapies be considered in postmenopausal women and men age >= 50 years with a: * Hip or vertebral (clinical or morphometric) fracture * T-score of <=-2.5 at the spine or hip * Ten-year fracture probability by FRAX of >= 3% for hip fracture or >=20% for major osteoporotic fracture. People with diagnosed cases of osteoporosis or at high risk for fracture should have regular bone mineral density tests. For patients eligible for Medicare, routine testing is allowed once every 2 years. The testing frequency can be increased to one year for patients who have rapidly progressing disease, those who are receiving or discontinuing medical therapy to restore bone mass, or have additional risk factors. Dictated by: Pino Mathew M.D. on 06/04/2024 at 13:03 Approved by: Pino Mathew M.D. on 06/04/2024 at 13:05
--- NOTE | 2024-06-04 11:03 | DI.MRI.S_ITS ---
PROCEDURE: MR ANGIO HEAD WO CON INDICATIONS: monitor aneurysm, done annually TECHNIQUE: Noncontrast axial 3-D [id number] MR angiogram, with 3-dimensional maximum intensity projection (MIP) reformats of the internal carotid arteries and posterior circulation then performed. COMPARISON: Outside Facility, RG, MRI SOFT TISSUE NECK WO, 12/23/2022, 16:49. [facility], MR, MR HEAD/BRAIN WO CON, 06/04/2024, 11:32. Outside Facility, RG, MRI BRAIN WITHOUT CONTRAST, 12/23/2022, 17:26. Outside Facility, RG, MRA NECK W/O CONTRAST, 12/23/2022, 16:12. Outside Facility, RG, MRI ANGIOGRAM HEAD W/O CONTRAST, 12/23/2022, 15:59. FINDINGS: Image quality: Excellent. 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 This is not well seen on the current study. Intracranial internal carotid arteries demonstrate normal size and intraluminal flow signal. The flow within the paired anterior cerebral arteries is normal and symmetric. The flow within the middle cerebral arteries is normal and symmetric. The anterior communicating artery is seen. No stenoses, occlusions, or aneurysms. Posterior circulation: Visualized portions of the vertebral arteries demonstrate normal caliber, and join to form a normal appearing basilar artery. The flow within the posterior cerebral arteries is normal and symmetric. No stenoses, occlusions, or aneurysms. 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 No significant intracranial arterial abnormality is seen. Dictated by: Manohar Guerra M.D. on 06/04/2024 at 11:26 Approved by: Manohar Guerra M.D. on 06/04/2024 at 11:30
[2024-06-04 13:27] LABS: Add Manual Diff / Slide Review NO; Basophils Absolute Auto 100 /uL (0-100); Basophils Percent Auto 0.6 % (0-2); Eosinophils Absolute Auto 100 /uL (0-450); Hematocrit 35.9 % (36-46); Hemoglobin 11.5 g/dL (12.0-16.0); Lymphocytes Absolute Auto 1100 /uL (1100-4500); Lymphocytes Percent Auto 10.4 % (25-40); Mean Corpuscular Hemoglobin 24.6 PG (26-34); Mean Corpuscular Volume 76.9 fL (80-100); Monocytes Absolute Auto 1000 /uL (0-900); Monocytes Percent Auto 9.4 % (3-14); Neutrophils Absolute Auto 8400 /uL (1500-7000); Neutrophils Percent Auto 78.6 % (50-75); Platelet Count 231 X10^3/uL (150-400); Red Blood Cell Count 4.66 X10^6/uL (4.0-5.2); Red Cell Distribution Width 16.4 % (11.6-14.8); White Blood Cell Count 10.7 X10^3/uL (4.5-11.0)
[2024-06-04 13:38] LABS: Hemoglobin A1C% w Est Avg Glu 5.6 % (4.0-6.0)
[2024-06-04 14:17] LABS: Creatinine Urine Random 168.33 mg/dL
[2024-06-04 15:39] LABS: Alanine Aminotransferase 14 IU/L (<35); Albumin 4.2 g/dL (3.5-5.0); Albumin Globulin Ratio 1.5 (1.0-2.8); Alkaline Phosphatase 103 U/L (38-126); Aspartate Aminotransferase 28 IU/L (14-36); BUN Creatinine Ratio 14.4 (6-22); Bilirubin Total 0.6 mg/dL (0.2-1.3); Blood Urea Nitrogen 13 mg/dL (7-17); Carbon Dioxide 32 mmol/L (22-32); Chloride 103 mmol/L (98-107); Cholesterol 149 mg/dL (140-199); Estimated Glomerular Filt Rate > 60 mL/min (>60); Globulin 2.8 g/dL (1.7-4.1); Glucose 90 mg/dL (80-110); HDL Cholesterol 61 mg/dL (40-60); HEMOLYSIS < 15 (0-50); LDL Cholesterol Calculated 67 mg/dL (<100); Potassium 3.9 mmol/L (3.4-5.1); Sodium 139 mmol/L (137-145); Triglycerides 103 mg/dL (35-150)
[2024-06-04 15:44] LABS: HEMOLYSIS 18 (0-50); Iron 42 ug/dL (37-170)
[2024-06-04 15:55] LABS: Percent Iron Saturation 10 % (15-50); Total Iron Binding Capacity 427 ug/dL (265-497); Transferrin 330 mg/dL (206-381)
[2024-06-04 16:03] LABS: Free T4, Direct Thyroxine 1.25 ng/dL (0.78-2.19)
[2024-06-04 16:16] LABS: Thyroid Stimulating Hormone 1.54 uIU/mL (0.47-4.68)
[2024-06-04 16:28] LABS: Vitamin B12 827 pg/mL (239-931)
== END ==
PROVIDERS: PCP Nurse Practitioner; Referring Provider Nurse Practitioner; Visit Provider Nurse Practitioner
DX: M81.0 Age-related osteoporosis without current pathological fracture (principal); I67.1 Cerebral aneurysm, nonruptured; R73.03 Prediabetes; E78.5 Hyperlipidemia, unspecified; D64.9 Anemia, unspecified; R00.2 Palpitations; I10 Essential (primary) hypertension; Z79.899 Other long term (current) drug therapy
CPT/HCPCS: 36415; 70544; 70551; 77080; 80053; 80061; 82043; 82570; 82607; 83036; 83540; 83550; 84439; 84443; 84481; 85025

== ENCOUNTER → 2024-07-16 10:08 | Outpatient (CLI) | payer MEDICARE, SELFPAY ==
[2024-06-18 13:55] VITALS: BMI 19.1
--- NOTE | 2024-07-16 10:10 | DI.RAD.S_ITS ---
PROCEDURE: XR LUMBAR SPINE 2-3V INDICATIONS: right sided sciatic pain TECHNIQUE: 3 views of the lumbar spine were acquired. COMPARISON: None. FINDINGS: Bones: 5 [id number] vertebrae are present. There is normal bony alignment. No vertebral body compression fractures. No suspicious bony lesions. Disc space narrowing in the mid lumbar spine. Sclerotic facet joints noted particularly lower lumbar. Soft tissues: Epigastric surgical clips. Atherosclerotic calcification in the abdominal aorta noted without evidence of aneurysm. IMPRESSION: Degenerative disc disease and arthropathy Approved by: Luis Kang M.D. on 07/16/2024 at 14:30
== END ==
PROVIDERS: PCP Nurse Practitioner; Referring Provider Nurse Practitioner; Visit Provider Nurse Practitioner
DX: M51.16 Intervertebral disc disorders with radiculopathy, lumbar region (principal); M47.26 Other spondylosis with radiculopathy, lumbar region; I70.0 Atherosclerosis of aorta
CPT/HCPCS: 72100

== ENCOUNTER 2024-10-03 19:17 | Inpatient (IN) | payer MEDICARE, SELFPAY ==
[2024-09-27 17:18] VITALS: BMI 19.1
[2024-10-03] VITALS (13 sets, daily range): BP systolic 121–146; BP diastolic 61–80; PULSE 77–92; RESP 18–32; TEMP 36.6–37.2; O2SAT 87–94; BMI 24.7
--- NOTE | 2024-10-03 19:24 | DI.RAD.S_ITS ---
PROCEDURE: XR CHEST 1V INDICATIONS: Hypoxia, fever TECHNIQUE: One view of the chest was acquired. COMPARISON: , CR, XR CHEST 1V, 05/27/2023, 13:59. FINDINGS: Surgical changes and devices: None. Lungs and pleura: Lungs are clear. No pleural effusions or pneumothorax. Mediastinum: Mediastinal contours appear normal. Heart size is normal. Aortic arch is calcified indicating atherosclerosis. Bones and chest wall: No suspicious bony lesions. Overlying soft tissues appear unremarkable. IMPRESSION: No acute cardiopulmonary abnormality is seen. Approved by: Marley Camejo M.D.,Ph.D. on 10/03/2024 at 20:31
--- NOTE | 2024-10-03 19:41 | EKG_ITS ---
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
--- NOTE | 2024-10-03 19:41 | ED.GENADULT ---
HPI - General Adult General Chief complaint: Weakness Stated complaint: Gen. weakness Time Seen by Provider: 10/03/24 19:23 Source: patient, family and EMS Mode of arrival: EMS Limitations: no limitations History of Present Illness HPI narrative: patient is an 84-year-old female with a history of Bobby's disease, adrenal insufficiency, anemia is here for evaluation of generalized weakness. Patient's family is also at bedside. She did have a fever earlier in the in the day today. She denies any urinary symptoms. No abdominal pain. She states that earlier today she did lose her balance and fell. No specific injuries from this fall. Family bedside states she was fallen multiple times today and actually multiple times over the past couple days. She did not hit her head. She was not on anticoagulation. She does take hydrocortisone on a daily basis. She states she was supposed take it twice a day but has only been taking 1 time a day. She did take it this morning but not this evening. EMS was called after she fell for the 3rd time today. Family could not get her up off the ground because of her weakness. Family also reports she has been more confused recently. Related Data Home Medications Medication Instructions Recorded Confirmed atorvastatin 80 mg tablet 80 mg PO DAILY 06/10/23 10/03/24 lorazepam 0.5 mg tablet 0.5 mg PO TID PRN Anxiety/Sleep 06/11/23 10/03/24 syringe with needle 1 mL 25 gauge #50 ea 11/02/23 10/03/24 x 5/8 (Eclipse Syringe) hydrocortisone 10 mg tablet 10 mg PO DAILY 12/13/23 10/03/24 metoprolol succinate 25 mg 25 mg PO ONCE PM 12/13/23 10/03/24 tablet,extended release 24 hr sennosides 8.6 mg tablet (senna) 34.4 mg PO BID 12/13/23 10/03/24 lisinopril 10 mg tablet 10 mg PO DAILY 05/23/24 10/03/24 Flonase 50 mcg intranasal QAM 10/03/24 10/03/24 hydrochlorothiazide 25 mg PO QAM 10/03/24 10/03/24 ondansetron 8 mg disintegrating 8 mg PO Q12H PRN nausea/vomiting 10/03/24 10/03/24 tablet Previous Rx's Medication Instructions Recorded escitalopram oxalate 10 mg tablet 20 mg (2 x 10 mg) PO DAILY #180 11/02/23 tabs diphenhydramine HCl 50 mg tablet 50 mg PO BEDTIME PRN allergic 12/02/23 (Benadryl Allergy) reaction #1 tab gabapentin 300 mg capsule 300 mg PO TID PRN pain #90 caps 07/16/24 Allergies Allergy/AdvReac Type Severity Reaction Status Date / Time azithromycin Allergy Verified 07/16/24 10:57 [From Zithromax Z-Anthony] clarithromycin [From Biaxin] Allergy Verified 07/16/24 10:57 Iodinated Contrast Media Allergy Verified 07/16/24 10:57 Penicillins Allergy Verified 07/16/24 10:57 Sulfa (Sulfonamide Allergy Verified 07/16/24 10:57 Antibiotics) Review of Systems Review of Systems ROS Unobtainable: All systems reviewed & are unremarkable except as noted in HPI and below Patient History Medical History Anemia Liver mass Mass of right lung Prediabetes Hyperlipidemia Osteopenia (~11/2021) Rosacea Osteoporosis Kidney stones Hypertension (~1995) Monoallelic mutation of PDE11A gene Aneurysm Pernicious anemia Pheochromocytoma History of anemia due to vitamin B12 deficiency History of pernicious anemia History of stroke History of Bobby disease Surgical History Anesthesia History of hysterectomy (~1977) History of parotidectomy (~1978) History of laparoscopic cholecystectomy (~2022) History of intracranial aneurysm History of adrenal surgery (~1996) Family History Father Congestive heart failure Mother Pheochromocytoma Cancer Sister Cancer Social History household members: spouse Smoking Status: Never smoker alcohol intake: current Smoking Status: Never smoker alcohol intake frequency: holidays/special occasions only Substance Use Type: does not use Exam Initial Vital Signs Initial Vital Signs: Vital Signs Pulse Rate 92 H 10/03/24 19:19 Pulse Oximetry 88 L 10/03/24 19:19 Const General: cooperative, comfortable and No ill appearing HENMO Head: normal to inspection and normocephalic Resp Effort & Inspection: tachypneic Auscultation: rhonchi Cardio Rate: regular rate Rhythm: regular rhythm GI Inspection: normal to inspection and non-distended Skin General: no rashes or lesions noted Neuro General: patient alert, patient awake, patient oriented x3 and moves all extremities Extrem General: capillary refill normal Course Orders Ordered: ED Orders 10/03/24 19:10 Complete Blood Count AUTO DIFF Stat Comprehensive Metabolic Panel Stat Ethanol (ETOH) Stat Lactate (Lactic Acid) Stat Lipase Stat Troponin & CK Cardiac Panel Stat 10/03/24 19:24 XR chest 1V Stat EKG-12 Lead Stat 10/03/24 19:25 Covid-19 + FLU A/B + RSV - PCR Stat 10/03/24 20:53 Blood Culture Stat 10/03/24 21:00 Ictotest Urine Stat Urinalysis and Microscopic Stat Urine Culture Stat Acetaminophen (Acetaminophen 325 Mg Tablet) 650 mg PO Q6H PRN PRN Reason: Fever/Mild Pain (1-3) Hydrocodone Bitart/Acetaminophen (Hydrocodone/Acet 5/325 Tablet) 1 tab PO Q4H PRN PRN Reason: Pain, Moderate (4-6) Al Hydrox/Mg Hydrox/Simethicone (Mag Hydrox/Alum/Simeth 30 Ml Udc) 30 ml PO Q6HR PRN PRN Reason: Dyspepsia Atorvastatin Calcium (Atorvastatin 20 Mg Tablet) 80 mg PO DAILY [facility] Enoxaparin Sodium (Enoxaparin 30 Mg/0.3 Ml Syringe) 30 mg SUBCUT DAILY [facility] Escitalopram Oxalate (Escitalopram 10 Mg Tablet) 20 mg PO DAILY [facility] Gabapentin (Gabapentin 300 Mg Capsule) 300 mg PO TID PRN PRN Reason: pain Hydrocortisone (Hydrocortisone 10 Mg Tablet) 10 mg PO DAILY [facility] Ceftriaxone Sodium 1,000 mg/ (Sodium Chloride) 100 mls @ 200 mls/hr IV Q24H [facility] Lisinopril (Lisinopril 10 Mg Tablet) 10 mg PO DAILY [facility] Lorazepam (Lorazepam 0.5 Mg Tablet) 0.5 mg PO TID PRN PRN Reason: Anxiety/Sleep Metoprolol Succinate (Metoprolol Er 25 Mg Tablet) 25 mg PO BEDTIME [facility] Naloxone HCl (Naloxone 0.4 Mg/Ml Vial) 0.2 mg IV Q2MIN PRN PRN Reason: Opiate Reversal Ondansetron HCl (Ondansetron 4 Mg Odt) 4 mg PO Q8HR PRN PRN Reason: Nausea And Vomiting Sennosides (Sennosides 8.6 Mg Tablet) 34.4 mg PO BID AWILDA Discontinued Medications Hydrocortisone (Hydrocortisone 100 Mg/2 Ml Vial) 100 mg IV NOW ONE Stop: 10/03/24 20:40 Last Admin: 10/03/24 20:44 Dose: 100 mg Documented By: Ceftriaxone Sodium 1,000 mg/ (Sodium Chloride) 100 mls @ 200 mls/hr IV NOW ONE Stop: 10/03/24 20:11 Last Infusion: 10/03/24 21:31 Dose: Infused Documented By: Admin: 10/03/24 20:43 Dose: 200 mls/hr Documented By: Vital Signs Vital signs: Vital Signs - 8 hr 10/03/24 19:19 10/03/24 19:20 10/03/24 19:20 Temperature Pulse Rate 92 H 92 H Respiratory Rate 32 H Blood Pressure 146/65 H Pulse Oximetry 88 L 88 L Oxygen Delivery Method Oxygen Flow Rate 10/03/24 19:21 10/03/24 19:30 10/03/24 19:30 Temperature 97.9 F Pulse Rate 91 H 89 Respiratory Rate 28 H 25 H Blood Pressure 146/65 H 145/65 H Pulse Oximetry 87 L 94 Oxygen Delivery Method Room Air Nasal Cannula Oxygen Flow Rate 1 10/03/24 20:00 10/03/24 20:01 10/03/24 20:01 Temperature Pulse Rate 86 85 Respiratory Rate 30 H 28 H Blood Pressure 143/65 H Pulse Oximetry 93 94 Oxygen Delivery Method Nasal Cannula Oxygen Flow Rate 2 10/03/24 20:10 10/03/24 20:30 10/03/24 21:00 Temperature Pulse Rate 83 80 Respiratory Rate 28 H Blood Pressure Pulse Oximetry 94 94 92 Oxygen Delivery Method Room Air Oxygen Flow Rate 10/03/24 21:01 10/03/24 21:01 Temperature Pulse Rate 80 Respiratory Rate 29 H Blood Pressure 134/63 Pulse Oximetry 93 Oxygen Delivery Method Room Air Oxygen Flow Rate Medical Decision Making Lab Data Lab results reviewed: Yes I reviewed the patient's lab results. 10/03/24 19:10 10/03/24 19:10 Labs: Lab Results 10/03/24 10/03/24 10/03/24 Range/Units 19:10 19:25 21:00 WBC 19.7 H (4.5-11.0) X10^3/uL RBC 4.42 (4.0-5.2) X10^6/uL Hgb 10.5 L (12.0-16.0) g/dL Hct 33.8 L (36-46) % MCV 76.6 L (80-100) fL MCH 23.9 L (26-34) PG MCHC 31.2 (30-36) % RDW 17.2 H (11.6-14.8) % Plt Count 224 (150-400) X10^3/uL Neut % (Auto) 87.3 H (50-75) % Lymph % (Auto) 3.6 L (25-40) % [place] % (Auto) 7.9 (3-14) % Eos % (Auto) 1.1 L (2-4) % Baso % (Auto) 0.1 (0-2) % Neut # (Auto) 57617 H (1252-6390) /uL Lymph # (Auto) 700 L (6830-2678) /uL [place] # (Auto) 1600 H (0-900) /uL Eos # (Auto) 200 (0-450) /uL Baso # (Auto) 0 (0-100) /uL Sodium 136 L (137-145) mmol/L Potassium 3.7 (3.4-5.1) mmol/L Chloride 103 (98-107) mmol/L Carbon Dioxide 27 (22-32) mmol/L BUN 19 H (7-17) mg/dL Creatinine 1.07 H (0.52-1.04) mg/dL Estimated GFR 52 L (>60) mL/min BUN/Creatinine Ratio 17.8 (6-22) Glucose 105 (80-110) mg/dL Lactate 1.9 (0.7-2.1) mmol/L Calcium 9.5 (8.4-10.2) mg/dL Total Bilirubin 0.7 (0.2-1.3) mg/dL AST 25 (14-36) IU/L ALT 14 (<35) IU/L Alkaline Phosphatase 91 (38-126) U/L Total Creatine Kinase 77 (30-135) U/L Troponin I 0.031 (0.01-0.034) ng/mL Total Protein 6.5 (6.3-8.2) g/dL Albumin 3.8 (3.5-5.0) g/dL Globulin 2.7 (1.7-4.1) g/dL Albumin/Globulin Ratio 1.4 (1.0-2.8) Lipase 69 (23-300) U/L Urine Color Yellow Urine Appearance Clear Urine pH 5.5 (4.5-8.0) Ur Specific [place] 1.025 (1.000-1.035) Urine Protein 1+ H (Negative) Urine Glucose (UA) Negative (Negative) g/dL Urine Ketones Trace H (NEGATIVE) Urine Occult Blood Trace-intact (Negative) Urine Nitrate Negative (Negative) Urine Bilirubin 1+ H (NEGATIVE) Ur Bilirubin Confirm Negative (Negative) Urine Urobilinogen 0.2 (0.2) E.U./dL Ur Leukocyte Esterase Negative (NEGATIVE) Urine RBC 1-5/hpf (0-5/HPF) Urine WBC None seen (0-5/HPF) Ur Squamous Epith Cells 0-1 /hpf (0-5/HPF) Urine Bacteria None seen (None) Vol Urine Centrifuged 10ml (spun) Ethyl Alcohol < 10 ( - 10) mg/dL SARS-CoV-2 (PCR) Negative (Negative) Influenza A (RT-PCR) Flu a negative (NEGATIVE) Influenza B (RT-PCR) Flu b negative (NEGATIVE) RSV (PCR) Negative (Negative) Imaging Data Chest x-ray: Radiologist's Impression: PROCEDURE: XR CHEST 1V INDICATIONS: Hypoxia, fever TECHNIQUE: One view of the chest was acquired. COMPARISON: [facility], , XR CHEST 1V, 05/27/2023, 13:59. FINDINGS: Surgical changes and devices: None. Lungs and pleura: Lungs are clear. No pleural effusions or pneumothorax. Mediastinum: Mediastinal contours appear normal. Heart size is normal. Aortic arch is calcified indicating atherosclerosis. Bones and chest wall: No suspicious bony lesions. Overlying soft tissues appear unremarkable. IMPRESSION: No acute cardiopulmonary abnormality is seen. ECG Data Attestation: I personally reviewed and interpreted this ECG as follows: Interpretation: Sinus rhythm Ventricular rate 91 Frequent PVCs Normal QRS Left axis deviation No ST T wave changes MDM Narrative Medical decision making narrative: Patient has a leukocytosis of 19. Urinalysis is not consistent with a UTI. She was no abdominal tenderness. No skin changes concerning for cellulitis. Upon arrival here in the emergency department she was hypoxic to the mid to upper 80s. Required oxygen for short period of time now her oxygen saturations greater than 90% without supplemental oxygen. She did have a fever earlier today. She was coarse breath sounds. Despite the negative chest x-ray clinically she has pneumonia. She was given antibiotics. Blood cultures were obtained. She was alert and oriented x3 here in the ER no focal neurologic deficits that would make me suspicious for CVA although family states she has been more confused recently and has had multiple falls. She was moving all 4 extremities. Given her presentation I feel that admission to hospital for further evaluation and antibiotics is warranted. Discussed this with the family who expressed understanding and agreement. Discussed the case with Dr. Goncalves hospitalist on-call who will admit for further evaluation and treatment. Discharge Plan Departure Patient Disposition: Home Clinical Impression: Pneumonia, Hypoxia, Weakness
[2024-10-03 19:48] LABS: Add Manual Diff / Slide Review NO; Basophils Absolute Auto 0 /uL (0-100); Basophils Percent Auto 0.1 % (0-2); Eosinophils Absolute Auto 200 /uL (0-450); Eosinophils Percent Auto 1.1 % (2-4); Hematocrit 33.8 % (36-46); Hemoglobin 10.5 g/dL (12.0-16.0); Lymphocytes Absolute Auto 700 /uL (1100-4500); Lymphocytes Percent Auto 3.6 % (25-40); Mean Corpuscular HGB Conc 31.2 % (30-36); Mean Corpuscular Hemoglobin 23.9 PG (26-34); Mean Corpuscular Volume 76.6 fL (80-100); Monocytes Absolute Auto 1600 /uL (0-900); Monocytes Percent Auto 7.9 % (3-14); Neutrophils Absolute Auto 17200 /uL (1500-7000); Neutrophils Percent Auto 87.3 % (50-75); Platelet Count 224 X10^3/uL (150-400); Red Blood Cell Count 4.42 X10^6/uL (4.0-5.2); Red Cell Distribution Width 17.2 % (11.6-14.8); White Blood Cell Count 19.7 X10^3/uL (4.5-11.0)
[2024-10-03 20:04] LABS: Lactate (Lactic Acid) 1.9 mmol/L (0.7-2.1)
[2024-10-03 20:05] LABS: Creatine Kinase 77 U/L (30-135); Ethanol (ETOH) < 10 mg/dL; Lipase 69 U/L (23-300)
[2024-10-03 20:06] LABS: Alanine Aminotransferase 14 IU/L (<35); Albumin 3.8 g/dL (3.5-5.0); Albumin Globulin Ratio 1.4 (1.0-2.8); Alkaline Phosphatase 91 U/L (38-126); Aspartate Aminotransferase 25 IU/L (14-36); BUN Creatinine Ratio 17.8 (6-22); Bilirubin Total 0.7 mg/dL (0.2-1.3); Blood Urea Nitrogen 19 mg/dL (7-17); Calcium 9.5 mg/dL (8.4-10.2); Carbon Dioxide 27 mmol/L (22-32); Chloride 103 mmol/L (98-107); Estimated Glomerular Filt Rate 52 mL/min (>60); Globulin 2.7 g/dL (1.7-4.1); Glucose 105 mg/dL (80-110); HEMOLYSIS < 15 (0-50); Potassium 3.7 mmol/L (3.4-5.1); Sodium 136 mmol/L (137-145); Total Protein 6.5 g/dL (6.3-8.2)
[2024-10-03 20:17] LABS: Troponin I 0.031 ng/mL (0.01-0.034)
[2024-10-03 20:26] LABS: Influenza A - CEPHEID Flu A NEGATIVE (NEGATIVE); Influenza B - CEPHEID Flu B NEGATIVE (NEGATIVE); Respiratory Syncytial Virus Negative (Negative)
[2024-10-03] MEDS: cefTRIAXone 1,000 MG in SODIUM CHLORIDE 0.9% 100 ML 200 MG IV (20:43)
[2024-10-03] MEDS: HYDROCORTISONE 100 MG/2 ML VIAL IV (20:44)
[2024-10-03 20:49] LABS: COVID-19 CEPHEID 4-PLEX PCR Negative (Negative)
[2024-10-03 21:12] LABS: Appearance Urine UA CLEAR; Bilirubin Urine UA 1+ (NEGATIVE); Color Urine UA YELLOW; Glucose Urine UA NEGATIVE (Negative); Ketones Urine UA TRACE (NEGATIVE); Leukocyte Esterase Urine UA NEGATIVE (NEGATIVE); Nitrite Urine UA NEGATIVE (Negative); Occult Blood Urine UA TRACE-INTACT (Negative); Protein Urine UA 1+ (Negative); Specific Gravity Urine UA 1.025 (1.000-1.035); Urobilinogen Urine UA 0.2 E.U./dL (0.2)
[2024-10-03 21:26] LABS: pH Urine UA 5.5 (4.5-8.0)
[2024-10-03 21:35] LABS: Bacteria Urine None Seen; Ictotest Urine Negative (Negative); RBC Urine 1-5/HPF (0-5/HPF); Squamous Epithelial Cell Urine 0-1 /HPF (0-5/HPF); Urine Volume 10mL (spun); WBC Urine None Seen (0-5/HPF)
--- NOTE | 2024-10-03 22:50 | P.HP_ITS ---
History of Present Illness History of Present Illness Date Patient Seen: 10/03/24 Time Patient Seen: 23:00 Chief complaint: Gen. weakness Narrative: 84 y/o with PMH of recently discovered lung mass, likely adenocarcinoma, presented with increased generalized weakness, shortness of breath, cough, leukocytosis. Started on empiric Rocephin in the ED for RLL/RML PNA and on oxygen for acute hypoxemia. Her voice became hoarse recently. She did not experience hemoptysis or weight loss. She has additional history of pheochromocytoma, adrenalectomy and iatrogenic adrenal insufficiency, HTN, HLD, depression, anxiety. [facility] Medical History Anemia Liver mass Mass of right lung Prediabetes Hyperlipidemia Osteopenia (~11/2021) Rosacea Osteoporosis Kidney stones Hypertension (~1995) Monoallelic mutation of PDE11A gene Aneurysm Pernicious anemia Pheochromocytoma History of anemia due to vitamin B12 deficiency History of pernicious anemia History of stroke History of Bobby disease Surgical History Anesthesia History of hysterectomy (~1977) History of parotidectomy (~1978) History of laparoscopic cholecystectomy (~2022) History of intracranial aneurysm History of adrenal surgery (~1996) Family History Father Congestive heart failure Mother Pheochromocytoma Cancer Sister Cancer Social History household members: spouse Smoking Status: Never smoker alcohol intake: current Meds Home Medications and Allergies Home Medications Medication Instructions Recorded Confirmed Type atorvastatin 80 mg tablet 80 mg PO DAILY 06/10/23 10/03/24 History lorazepam 0.5 mg tablet 0.5 mg PO TID PRN Anxiety/Sleep 06/11/23 10/03/24 History escitalopram oxalate 10 mg tablet 20 mg (2 x 10 mg) PO DAILY #180 11/02/23 10/03/24 Rx tabs syringe with needle 1 mL 25 gauge #50 ea 11/02/23 10/03/24 History x 5/8 (Eclipse Syringe) diphenhydramine HCl 50 mg tablet 50 mg PO BEDTIME PRN allergic 12/02/23 10/03/24 Rx (Benadryl Allergy) reaction #1 tab hydrocortisone 10 mg tablet 10 mg PO DAILY 12/13/23 10/03/24 History metoprolol succinate 25 mg 25 mg PO ONCE PM 12/13/23 10/03/24 History tablet,extended release 24 hr sennosides 8.6 mg tablet (senna) 34.4 mg PO BID 12/13/23 10/03/24 History lisinopril 10 mg tablet 10 mg PO DAILY 05/23/24 10/03/24 History gabapentin 300 mg capsule 300 mg PO TID PRN pain #90 caps 07/16/24 10/03/24 Rx Flonase 50 mcg intranasal QAM 10/03/24 10/03/24 History hydrochlorothiazide 25 mg PO QAM 10/03/24 10/03/24 History ondansetron 8 mg disintegrating 8 mg PO Q12H PRN nausea/vomiting 10/03/24 10/03/24 History tablet Allergies Allergy/AdvReac Type Severity Reaction Status Date / Time azithromycin Allergy Verified 07/16/24 10:57 [From Zithromax Z-Anthony] clarithromycin [From Biaxin] Allergy Verified 07/16/24 10:57 Iodinated Contrast Media Allergy Verified 07/16/24 10:57 Penicillins Allergy Verified 07/16/24 10:57 Sulfa (Sulfonamide Allergy Verified 07/16/24 10:57 Antibiotics) Review of Systems Review of Systems Narrative: limited historian due to encephalopathy and complicated PMH Constitutional Comments: generalized weakness Cardiovascular Comments: w/o chest pain Respiratory Comments: cough, shortness of breath Exam Vital Signs (past 8 hours): - 10/03/24 19:19 10/03/24 19:20 10/03/24 19:20 Temperature Pulse Rate 92 H 92 H Respiratory Rate 32 H Blood Pressure 146/65 H Pulse Oximetry 88 L 88 L Oxygen Delivery Method Oxygen Flow Rate 10/03/24 19:21 10/03/24 19:30 10/03/24 19:30 Temperature 97.9 F Pulse Rate 91 H 89 Respiratory Rate 28 H 25 H Blood Pressure 146/65 H 145/65 H Pulse Oximetry 87 L 94 Oxygen Delivery Method Room Air Nasal Cannula Oxygen Flow Rate 1 10/03/24 20:00 10/03/24 20:01 10/03/24 20:01 Temperature Pulse Rate 86 85 Respiratory Rate 30 H 28 H Blood Pressure 143/65 H Pulse Oximetry 93 94 Oxygen Delivery Method Nasal Cannula Oxygen Flow Rate 2 10/03/24 20:10 10/03/24 20:30 10/03/24 21:00 Temperature Pulse Rate 83 80 Respiratory Rate 28 H Blood Pressure Pulse Oximetry 94 94 92 Oxygen Delivery Method Room Air Oxygen Flow Rate 10/03/24 21:01 10/03/24 21:01 10/03/24 21:30 Temperature Pulse Rate 80 79 Respiratory Rate 29 H 28 H Blood Pressure 134/63 Pulse Oximetry 93 91 Oxygen Delivery Method Room Air Oxygen Flow Rate 10/03/24 21:30 10/03/24 22:00 10/03/24 22:00 Temperature Pulse Rate 78 Respiratory Rate 28 H Blood Pressure 126/61 129/63 Pulse Oximetry 92 Oxygen Delivery Method Room Air Oxygen Flow Rate Oxygen Delivery Method Room Air Oxygen Flow Rate 2 Const Other: in no distress HENMT Other: normocephalic, hoarse voice Eyes Other: eomi, equal pupils Neck Other: supple Resp Other: tachypneic Cardio Other: RRR Skin Other: wo rashes Neuro Other: w/o focal weakness or sensory deficits Extrem Other: w/o deformities or swelling Psych Other: mild encephalopathy Objective ECG Impression: NSR, LBBB, PVCs Labs 10/03/24 19:10 10/03/24 19:10 Labs: Laboratory Results - last 24 hr 10/03/24 10/03/24 10/03/24 19:10 19:25 21:00 WBC 19.7 H RBC 4.42 Hgb 10.5 L Hct 33.8 L MCV 76.6 L MCH 23.9 L MCHC 31.2 RDW 17.2 H Plt Count 224 Neut % (Auto) 87.3 H Lymph % (Auto) 3.6 L [place] % (Auto) 7.9 Eos % (Auto) 1.1 L Baso % (Auto) 0.1 Neut # (Auto) 86462 H Lymph # (Auto) 700 L [place] # (Auto) 1600 H Eos # (Auto) 200 Baso # (Auto) 0 Sodium 136 L Potassium 3.7 Chloride 103 Carbon Dioxide 27 BUN 19 H Creatinine 1.07 H Estimated GFR 52 L BUN/Creatinine Ratio 17.8 Glucose 105 Lactate 1.9 Calcium 9.5 Total Bilirubin 0.7 AST 25 ALT 14 Alkaline Phosphatase 91 Total Creatine Kinase 77 Troponin I 0.031 Total Protein 6.5 Albumin 3.8 Globulin 2.7 Albumin/Globulin Ratio 1.4 Lipase 69 Urine Color Yellow Urine Appearance Clear Urine pH 5.5 Ur Specific [place] 1.025 Urine Protein 1+ H Urine Glucose (UA) Negative Urine Ketones Trace H Urine Occult Blood Trace-intact Urine Nitrate Negative Urine Bilirubin 1+ H Ur Bilirubin Confirm Negative Urine Urobilinogen 0.2 Ur Leukocyte Esterase Negative Urine RBC 1-5/hpf Urine WBC None seen Ur Squamous Epith Cells 0-1 /hpf Urine Bacteria None seen Vol Urine Centrifuged 10ml (spun) Ethyl Alcohol < 10 SARS-CoV-2 (PCR) Negative Influenza A (RT-PCR) Flu a negative Influenza B (RT-PCR) Flu b negative RSV (PCR) Negative Assessment & Plan Assessment and plan (1) Pneumonia: Status: Acute (2) Weakness: Status: Acute (3) Acute metabolic encephalopathy: Status: Acute (4) Mass of right lung: Status: Acute (5) Hypoxia: Status: Acute (6) Hypertension: Qualifiers: Hypertension type: secondary to endocrine disorders Qualified Code(s): I15.2 - Hypertension secondary to endocrine disorders Status: Acute (7) Pernicious anemia: Status: Acute (8) Hyperlipidemia: Qualifiers: Hyperlipidemia type: mixed hyperlipidemia Qualified Code(s): E78.2 - Mixed hyperlipidemia Status: Acute (9) Aneurysm: Status: Acute (10) History of Bobby disease: Status: Acute Assessment & Plan narrative: PNA / Acute Hypoxemic Respiratory Failure / Acute Metabolic Encephalopathy - empiric Rocephin - prn oxygen, desaturating into 90-92 on room air - underlying Rt lung mass Lung Mass - likely adenocarcinoma - she had recent PET scan - follow up with oncology Adrenal Insufficiency - s/p adrenal Sx for pheochromocytoma, Bobby's - apparently on hydrocortisone 10 mg daily at home, had 100 mg IV in ED on admission b/o suspected sepsis and risk for hypotension HTN - metoprolol, Lisinopril - HCTZ held HLD - statin Depression / Anxiety - Lexapro 10 mg daily, prn lorazepam Pernicious Anemia - getting monthly B12 injections DVT prophylaxis - Lovenox Time-Based Coding :: [TOTAL MINUTES] spent with patient and on the chart (including review of chart, obtaining history, exam, reviewing outside data, placing orders, documenting exam and treatment plan, and counseling patient) on [DATE].
[2024-10-04] VITALS: O2SAT 94
[2024-10-04 07:34] LABS: Add Manual Diff / Slide Review NO; Basophils Absolute Auto 100 /uL (0-100); Basophils Percent Auto 0.4 % (0-2); Eosinophils Absolute Auto 0 /uL (0-450); Eosinophils Percent Auto 0.2 % (2-4); Hemoglobin 9.5 g/dL (12.0-16.0); Lymphocytes Absolute Auto 1000 /uL (1100-4500); Lymphocytes Percent Auto 5.7 % (25-40); Mean Corpuscular HGB Conc 31.7 % (30-36); Mean Corpuscular Hemoglobin 24.2 PG (26-34); Mean Corpuscular Volume 76.4 fL (80-100); Monocytes Absolute Auto 1000 /uL (0-900); Monocytes Percent Auto 6.1 % (3-14); Neutrophils Absolute Auto 14700 /uL (1500-7000); Neutrophils Percent Auto 87.6 % (50-75); Platelet Count 183 X10^3/uL (150-400); Red Blood Cell Count 3.93 X10^6/uL (4.0-5.2); Red Cell Distribution Width 16.8 % (11.6-14.8); White Blood Cell Count 16.8 X10^3/uL (4.5-11.0)
[2024-10-04 07:47] LABS: BUN Creatinine Ratio 25.7 (6-22); Blood Urea Nitrogen 19 mg/dL (7-17); Calcium 9.3 mg/dL (8.4-10.2); Carbon Dioxide 26 mmol/L (22-32); Chloride 105 mmol/L (98-107); Estimated Glomerular Filt Rate > 60 mL/min (>60); Glucose 113 mg/dL (80-110); HEMOLYSIS < 15 (0-50); Potassium 4.1 mmol/L (3.4-5.1); Sodium 136 mmol/L (137-145)
[2024-10-04 08:00] VITALS: BP 106/59; PULSE 67; RESP 15; TEMP 36.9; O2SAT 94
[2024-10-04 09:56] VITALS: BP 124/64; PULSE 77
[2024-10-04] MEDS: lisinopriL 10 MG TABLET PO (09:56)
[2024-10-04] MEDS: HYDROCORTISONE 10 MG TABLET PO ×2 (09:56→21:24)
[2024-10-04] MEDS: SENNOSIDES 8.6 MG TABLET 34.4 MG PO ×2 (09:56→21:23)
[2024-10-04] MEDS: ESCITALOPRAM 10 MG TABLET 20 MG PO (09:56)
[2024-10-04] MEDS: ATORVASTATIN 20 MG TABLET 80 MG PO (09:56)
[2024-10-04] MEDS: ENOXAPARIN 30 MG/0.3 ML SYRINGE SUBCUT (09:57)
--- NOTE | 2024-10-04 12:05 | CM.DANOTE ---
Initial DCP Assessment Note Pt is an 84 yo female, patient and sp live in a 2 bedroom apt at [facility] in [place], hx Bobby's disease and adrenal insufficiency arrives with weakness with recent falls. PCP: Amadeo Rojas Payer: [facility] MCR Reviewed chart, met w/patient to introduce self and role. Patient lives with her spouse, whom she cares for, in their indp apt at [facility]. Patient admits she has been independent and active up until recently. Patient and her daughters have been discussing [facility] care plan. Daughter lives in [place] and able to increase her visits to patient and spouse. Daughter looking after spouse while patient is admitted. Discussed home health, in home caregivers and Medicaid funded care. Patient reports Dr Rojas helped she and spouse complete ppk to increase care at [facility] if/when this was needed. Patient unsure she will need and/or benefit from home health services. Patient states appreciation for the visit. Plan: Discharge home w/family is anticipated. Patient may benefit from HH referral, further discussion with patient and daughter Ondina, if patient agreeable, would be helpful. CM team will plan to follow clinical course closely. REJI Mendoza Discharge Planning/Care Management CM Discharge Assessment Start: 10/04/24 11:29 Freq: Status: Active Protocol: Document 10/04/24 11:29 MARGARET (Rec: 10/04/24 12:04 MARGARET [email or web address]) Discharge Planning Assessment Assigned Center Consultant REJI Garibay DPOA/Assigned Designee Name Edin Escalante, spouse Contact Information [phone] Advance Directives? No History Provided By Patient,Medical Record Prior Living Arrangements Longterm Facility Household Members spouse Type of transporation used prior to Relies on Others admit Facility Name Admitted From: [facility] Willing to Return to Facility? Yes Independent with ADL's Yes Is patient alert and oriented? Yes Caregiver for Another Yes: cares for spouse Patient/Family Preference Home with Home Health Comment Hx falls Discharge Plan Home with Home Health Transportation Arrangement TBD Additional Comment Patient anticipates returning home w/her family to assist. Patient unsure if she will need HH services.
--- NOTE | 2024-10-04 17:26 | PM.PN.1 ---
Subjective Subjective Interval history: 84 y/o with PMH of recently discovered lung mass, likely adenocarcinoma, presented with increased generalized weakness, shortness of breath, cough, leukocytosis. Started on empiric Rocephin in the ED for RLL/RML PNA and on oxygen for acute hypoxemia. Her voice became hoarse recently. She did not experience hemoptysis or weight loss. She has additional history of pheochromocytoma, adrenalectomy and iatrogenic adrenal insufficiency, HTN, HLD, depression, anxiety. Interval history: Reports recent dental work, with sujective fever. She denied recent cough to me, no shortness of breath. Her voice is hoarse, she feels like she is much better today. Normally takes double her hydrocortisone dose if ill, did not this time. Exam Vital Signs (past 8 hours): - 10/04/24 09:56 Pulse Rate 77 Blood Pressure 124/64 Fraction of Inspired Oxygen 28 Oxygen Delivery Method Room Air Oxygen Flow Rate 0 Narrative Exam Narrative: Gen: No acute distress CV: RRR no m/r/g Pulm: CTA b/l Abd: S NT ND Ext: no edema. Objective Labs 10/04/24 07:26 10/04/24 07:26 Labs: Laboratory Results - last 24 hr 10/03/24 10/03/24 10/03/24 19:10 19:25 21:00 WBC 19.7 H RBC 4.42 Hgb 10.5 L Hct 33.8 L MCV 76.6 L MCH 23.9 L MCHC 31.2 RDW 17.2 H Plt Count 224 Neut % (Auto) 87.3 H Lymph % (Auto) 3.6 L [place] % (Auto) 7.9 Eos % (Auto) 1.1 L Baso % (Auto) 0.1 Neut # (Auto) 08138 H Lymph # (Auto) 700 L [place] # (Auto) 1600 H Eos # (Auto) 200 Baso # (Auto) 0 Sodium 136 L Potassium 3.7 Chloride 103 Carbon Dioxide 27 BUN 19 H Creatinine 1.07 H Estimated GFR 52 L BUN/Creatinine Ratio 17.8 Glucose 105 Lactate 1.9 Calcium 9.5 Total Bilirubin 0.7 AST 25 ALT 14 Alkaline Phosphatase 91 Total Creatine Kinase 77 Troponin I 0.031 Total Protein 6.5 Albumin 3.8 Globulin 2.7 Albumin/Globulin Ratio 1.4 Lipase 69 Urine Color Yellow Urine Appearance Clear Urine pH 5.5 Ur Specific [place] 1.025 Urine Protein 1+ H Urine Glucose (UA) Negative Urine Ketones Trace H Urine Occult Blood Trace-intact Urine Nitrate Negative Urine Bilirubin 1+ H Ur Bilirubin Confirm Negative Urine Urobilinogen 0.2 Ur Leukocyte Esterase Negative Urine RBC 1-5/hpf Urine WBC None seen Ur Squamous Epith Cells 0-1 /hpf Urine Bacteria None seen Vol Urine Centrifuged 10ml (spun) Ethyl Alcohol < 10 SARS-CoV-2 (PCR) Negative Influenza A (RT-PCR) Flu a negative Influenza B (RT-PCR) Flu b negative RSV (PCR) Negative 10/04/24 07:26 WBC 16.8 H RBC 3.93 L Hgb 9.5 L Hct 30.0 L MCV 76.4 L MCH 24.2 L MCHC 31.7 RDW 16.8 H Plt Count 183 Neut % (Auto) 87.6 H Lymph % (Auto) 5.7 L [place] % (Auto) 6.1 Eos % (Auto) 0.2 L Baso % (Auto) 0.4 Neut # (Auto) 44182 H Lymph # (Auto) 1000 L [place] # (Auto) 1000 H Eos # (Auto) 0 Baso # (Auto) 100 Sodium 136 L Potassium 4.1 Chloride 105 Carbon Dioxide 26 BUN 19 H Creatinine 0.74 Estimated GFR > 60 BUN/Creatinine Ratio 25.7 H Glucose 113 H Lactate Calcium 9.3 Total Bilirubin AST ALT Alkaline Phosphatase Total Creatine Kinase Troponin I Total Protein Albumin Globulin Albumin/Globulin Ratio Lipase Urine Color Urine Appearance Urine pH Ur Specific [place] Urine Protein Urine Glucose (UA) Urine Ketones Urine Occult Blood Urine Nitrate Urine Bilirubin Ur Bilirubin Confirm Urine Urobilinogen Ur Leukocyte Esterase Urine RBC Urine WBC Ur Squamous Epith Cells Urine Bacteria Vol Urine Centrifuged Ethyl Alcohol SARS-CoV-2 (PCR) Influenza A (RT-PCR) Influenza B (RT-PCR) RSV (PCR) [facility] Medical History Anemia Liver mass Mass of right lung Prediabetes Hyperlipidemia Osteopenia (~11/2021) Rosacea Osteoporosis Kidney stones Hypertension (~1995) Monoallelic mutation of PDE11A gene Aneurysm Pernicious anemia Pheochromocytoma History of anemia due to vitamin B12 deficiency History of pernicious anemia History of stroke History of [place] disease Surgical History Anesthesia History of hysterectomy (~1977) History of parotidectomy (~1978) History of laparoscopic cholecystectomy (~2022) History of intracranial aneurysm History of adrenal surgery (~1996) Family History Father Congestive heart failure Mother Pheochromocytoma Cancer Sister Cancer Social History household members: spouse Smoking Status: Never smoker alcohol intake: current Assessment & Plan Assessment & Plan narrative: Sepsis secondary to PNA with Acute Hypoxemic Respiratory Failure, [place] and Acute Metabolic Encephalopathy - empiric Rocephin, azithro - prn oxygen, desaturating into 90-92 on room air - underlying Rt lung mass Lung Mass - likely adenocarcinoma - she had recent PET scan - follow up with oncology Adrenal Insufficiency - s/p adrenal Sx for pheochromocytoma, [place]'s - apparently on hydrocortisone 10 mg daily at home, had 100 mg IV in ED on admission b/o suspected sepsis and risk for hypotension - much improved today, continue with hydrocort 10 mg BID today. HTN - metoprolol, Lisinopril - HCTZ held HLD - statin Depression / Anxiety - Lexapro 10 mg daily, prn lorazepam Pernicious Anemia - getting monthly B12 injections DVT prophylaxis - Lovenox Time-Based Coding :: [TOTAL MINUTES] spent with patient and on the chart (including review of chart, obtaining history, exam, reviewing outside data, placing orders, documenting exam and treatment plan, and counseling patient) on [DATE].
[2024-10-04] MEDS: GABAPENTIN 300 MG CAPSULE PO (19:45)
[2024-10-04] MEDS: ACETAMINOPHEN 325 MG TABLET 650 MG PO (19:45)
--- NOTE | 2024-10-04 19:56 | PC.NURSE ---
0730 Report received from nightshift RN. Patient AAO x's 3. Able to [place]. Denies pain. numbness and tingling. Call light within reach and bed in lowest position. 1200 No changes from baseline status. 1600 No changes from baseline status. 1929 Report given to nightshift RN. Plan of care discussed. Patient notified dayshift RN of allergy to Azithromycin. On coming RN made aware, medication not given. Oncoming RN to notify hospitalist.
[2024-10-04 21:22] VITALS: BP 124/64; PULSE 77
[2024-10-04] MEDS: METOPROLOL ER 25 MG TABLET PO (21:22)
[2024-10-04] MEDS: cefTRIAXone 1,000 MG in SODIUM CHLORIDE 0.9% 100 ML 200 MG IV (21:23)
[2024-10-04 21:29] VITALS: BP 133/55; PULSE 64; RESP 18; TEMP 36.9; O2SAT 96
[2024-10-04 22:16] VITALS: BP 103/60; PULSE 64
[2024-10-05 02:00] VITALS: BP 154/80; PULSE 67; RESP 16; TEMP 36.6; O2SAT 98
[2024-10-05 07:31] LABS: Add Manual Diff / Slide Review NO; Basophils Absolute Auto 0 /uL (0-100); Basophils Percent Auto 0.5 % (0-2); Eosinophils Absolute Auto 400 /uL (0-450); Eosinophils Percent Auto 5.1 % (2-4); Hematocrit 28.9 % (36-46); Hemoglobin 9.1 g/dL (12.0-16.0); Lymphocytes Absolute Auto 900 /uL (1100-4500); Lymphocytes Percent Auto 10.7 % (25-40); Mean Corpuscular HGB Conc 31.6 % (30-36); Mean Corpuscular Volume 76.1 fL (80-100); Monocytes Absolute Auto 700 /uL (0-900); Monocytes Percent Auto 8.3 % (3-14); Neutrophils Absolute Auto 6600 /uL (1500-7000); Neutrophils Percent Auto 75.4 % (50-75); Platelet Count 190 X10^3/uL (150-400); Red Blood Cell Count 3.79 X10^6/uL (4.0-5.2); Red Cell Distribution Width 17.2 % (11.6-14.8); White Blood Cell Count 8.8 X10^3/uL (4.5-11.0)
[2024-10-05 07:51] LABS: BUN Creatinine Ratio 23.3 (6-22); Blood Urea Nitrogen 17 mg/dL (7-17); Calcium 8.9 mg/dL (8.4-10.2); Carbon Dioxide 28 mmol/L (22-32); Chloride 107 mmol/L (98-107); Estimated Glomerular Filt Rate > 60 mL/min (>60); Glucose 101 mg/dL (80-110); HEMOLYSIS < 15 (0-50); Magnesium 2.1 mg/dL (1.6-2.3); Potassium 3.7 mmol/L (3.4-5.1); Sodium 138 mmol/L (137-145)
[2024-10-05 08:00] VITALS: BP 162/64; PULSE 59; RESP 15; TEMP 36.8; O2SAT 96
[2024-10-05] MEDS: SENNOSIDES 8.6 MG TABLET 34.4 MG PO (09:17)
[2024-10-05] MEDS: lisinopriL 10 MG TABLET PO (09:18)
[2024-10-05] MEDS: HYDROCORTISONE 10 MG TABLET PO (09:18)
[2024-10-05] MEDS: ATORVASTATIN 20 MG TABLET 80 MG PO (09:18)
[2024-10-05] MEDS: ENOXAPARIN 40 MG/0.4 ML SYRINGE SUBCUT (09:18)
[2024-10-05] MEDS: ESCITALOPRAM 10 MG TABLET 20 MG PO (09:19)
[2024-10-05 09:30] VITALS: BP 162/108; PULSE 67; O2SAT 98
[2024-10-05 10:00] VITALS: BP 168/100
--- NOTE | 2024-10-05 10:34 | PC.NURSE ---
Patient denies discomfort, she had some minor wheeze in her r.lower lobe. Steady on feet when up, she is resting comfortably now.
--- NOTE | 2024-10-05 11:10 | PM.DS.1 ---
History of Present Illness History of Present Illness Chief complaint: Gen weakness Narrative: From H&P: 84 y/o with PMH of recently discovered lung mass, likely adenocarcinoma, presented with increased generalized weakness, shortness of breath, cough, leukocytosis. Started on empiric Rocephin in the ED for RLL/RML PNA and on oxygen for acute hypoxemia. Her voice became hoarse recently. She did not experience hemoptysis or weight loss. She has additional history of pheochromocytoma, adrenalectomy and iatrogenic adrenal insufficiency, HTN, HLD, depression, anxiety. Discharge Providers Provider Date of admission: 10/03/24 21:27 Discharge Date: 10/05/24 Primary care physician: NIKKO Mendoza Discharge provider: Sanju Aceves MD Summary Hospital Course Discharge Diagnosis: Sepsis secondary to PNA with Acute Hypoxemic Respiratory Failure, [place] and Acute Metabolic Encephalopathy, present on admission and improved. - empiric Rocephin, azithro - prn oxygen, desaturating into 90-92 on room air - underlying Rt lung mass Lung Mass, stable - likely adenocarcinoma - she had recent PET scan - follow up with oncology Adrenal Insufficiency, chronic and improved from admission. - s/p adrenal Sx for pheochromocytoma, [place]'s - apparently on hydrocortisone 10 mg daily at home, had 100 mg IV in ED on admission b/o suspected sepsis and risk for hypotension - much improved today, continue with hydrocort 10 mg BID today. HTN, stable - metoprolol, Lisinopril - HCTZ held HLD, stable - statin Depression / Anxiety, stable - Lexapro 10 mg daily, prn lorazepam Pernicious Anemia, stable - getting monthly B12 injections Hospital Course: The patient was treated for acute sepsis and probable pneumonia with antibiotics and IV fluids. She improved and was able to come off from oxygen. She was also given stress dose steroids. In the day of discharge she felt close to her baseline and was comfortable returning home as was her daughter. She will double her 20 b.i.d. dosing of hydrocortisone to 40 mg twice a day for the next several days and further discuss this with her incinerator attendant. She will be given Tessalon for cough and several more days of antibiotics to complete a 5 day course for possible pneumonia. Status at Discharge Cognitive/behavioral status at discharge: oriented Functional status at discharge: independent ambulation Overall status at discharge: patient is back to baseline Time Spent with Patient Time spent: Greater than 30 minutes Exam Vital Signs (past 8 hours): - 10/05/24 08:00 10/05/24 09:30 10/05/24 10:00 Temperature 98.2 F Pulse Rate 59 L 67 Respiratory Rate 15 Blood Pressure 162/64 H 162/108 H 168/100 H Pulse Oximetry 96 98 Oxygen Flow Rate 0 Fraction of Inspired Oxygen 28 Oxygen Delivery Method Room Air Oxygen Flow Rate 0 Narrative Exam Narrative: NAD, alert and oriented. Fluent speech. She does have some laryngitis when speaking. Lungs are clear, normal rate and effort. No wheezing or focal rhonchi. Heart is regular, no murmur gallop or rub. Abdomen is soft, non distended. Extremities are free of edema. Objective ECG Impression: Sinus rhythm with frequent premature ventricular complexes Electronically Signed On 10-04-2024 8:06:29 PST by Caleb Stallworth MD Imaging Chest x-ray: Radiologist's impression: No acute cardiopulmonary abnormality is seen. Labs 10/05/24 06:50 10/05/24 06:50 Labs: Laboratory Results - last 24 hr 10/05/24 06:50 WBC 8.8 RBC 3.79 L Hgb 9.1 L Hct 28.9 L MCV 76.1 L MCH 24.0 L MCHC 31.6 RDW 17.2 H Plt Count 190 Neut % (Auto) 75.4 H Lymph % (Auto) 10.7 L [place] % (Auto) 8.3 Eos % (Auto) 5.1 H Baso % (Auto) 0.5 Neut # (Auto) 6600 Lymph # (Auto) 900 L [place] # (Auto) 700 Eos # (Auto) 400 Baso # (Auto) 0 Sodium 138 Potassium 3.7 Chloride 107 Carbon Dioxide 28 BUN 17 Creatinine 0.73 Estimated GFR > 60 BUN/Creatinine Ratio 23.3 H Glucose 101 Calcium 8.9 Magnesium 2.1 [facility] Medical History Anemia Liver mass Mass of right lung Prediabetes Hyperlipidemia Osteopenia (~11/2021) Rosacea Osteoporosis Kidney stones Hypertension (~1995) Monoallelic mutation of PDE11A gene Aneurysm Pernicious anemia Pheochromocytoma History of anemia due to vitamin B12 deficiency History of pernicious anemia History of stroke History of [place] disease Surgical History Anesthesia History of hysterectomy (~1977) History of parotidectomy (~1978) History of laparoscopic cholecystectomy (~2022) History of intracranial aneurysm History of adrenal surgery (~1996) Family History Father Congestive heart failure Mother Pheochromocytoma Cancer Sister Cancer Social History household members: spouse Smoking Status: Never smoker alcohol intake: current Discharge Assessment & Plan Assessment and Plan Assessment: Sepsis secondary to PNA with Acute Hypoxemic Respiratory Failure, [place] and Acute Metabolic Encephalopathy, present on admission and improved. - empiric Rocephin, azithro - prn oxygen, desaturating into 90-92 on room air - underlying Rt lung mass Lung Mass, stable - likely adenocarcinoma - she had recent PET scan - follow up with oncology Adrenal Insufficiency, chronic and improved from admission. - s/p adrenal Sx for pheochromocytoma, [place]'s - apparently on hydrocortisone 10 mg daily at home, had 100 mg IV in ED on admission b/o suspected sepsis and risk for hypotension - much improved today, continue with hydrocort 10 mg BID today. HTN, stable - metoprolol, Lisinopril - HCTZ held HLD, stable - statin Depression / Anxiety, stable - Lexapro 10 mg daily, prn lorazepam Pernicious Anemia, stable - getting monthly B12 injections Plan of Treatment: Stable for discharge, we will continue stress dose steroids at 40 b.i.d., she can then come back down to normal dosing after several days. We will complete 3 more days of oral antibiotics. Close follow up with her PCP as scheduled. Discharge Plan Discharge Plan Patient Disposition: Home Provider Discharge Comment: Stable for discharge. Discharge orders & Medications Prescriptions: New doxycycline hyclate 100 mg capsule 100 mg PO BID Qty: 10 0RF benzonatate 200 mg capsule 200 mg PO BID PRN (Reason: cough) Qty: 30 0RF Continued Benadryl Allergy 50 mg tablet 50 mg PO BEDTIME PRN (Reason: allergic reaction) Qty: 1 0RF Rx Instructions: 50mg by mouth 1 hour prior to exam cyanocobalamin (vitamin B-12) 1,000 mcg/mL solution 1,000 mcg IM QMONTH Qty: 1 0RF metoprolol succinate 25 mg tablet extended release 24 hr 25 mg PO ONCE PM sennosides [senna] 8.6 mg tablet 34.4 mg PO BID lisinopril 10 mg tablet 10 mg PO DAILY gabapentin 300 mg capsule 300 mg PO TID PRN (Reason: pain) Qty: 90 3RF Rx Instructions: take 300mg by mouth 3x/day as needed for pain (DME) Eclipse Syringe 1 mL 25 gauge x 5/8 syringe See Rx Instructions .ROUTE .MEDSUPPLY Qty: 50 Patient Comments: use to inject B12 MONTHLY Rx Instructions: As directed escitalopram oxalate 10 mg tablet 20 mg PO DAILY Qty: 180 3RF atorvastatin 80 mg tablet 80 mg PO DAILY Patient Comments: take 1 tablet by mouth once daily lorazepam 0.5 mg tablet 0.5 mg PO TID PRN (Reason: Anxiety/Sleep) Patient Comments: take 1 tablet by mouth up to three times a day if needed for anxiety hydrocortisone 10 mg tablet 10 mg PO DAILY Patient Comments: take 1 tablet by mouth every morning ondansetron 8 mg tablet,disintegrating 8 mg PO Q12H PRN (Reason: nausea/vomiting) Patient Comments: Takes daily before AM meds Flonase 50 mcg aerosol 50 mcg intranasal QAM hydrochlorothiazide 12.5 mg tablet 25 mg PO QAM Follow up/Referrals: Angie Oconnor ARNP [Primary Care Provider] - Diet/Activity/Treatments Activity: As tolerated. Visit Report/Discharge Packet Instructions: Adrenal Crisis, DI for Pneumonia -- Adult Stand Alone Forms: Patient Portal/API Discharge Data Primary Care Provider: Angie Oconnor
--- NOTE | 2024-10-05 14:36 | CM.DPC ---
DCP Discharge Home Per MD, pt medically stable to discharge home today with outpt f/u and ambulating independently so no need for HH at this time. Dtr plans to provide transport back to [facility] today. No concerns noted at this time. REJI Samuel
== END 2024-10-05 12:58 | disposition home or self-care (01) | DRG 871 ==
LOC: ED 19:23 → AC 21:28
PROVIDERS: Internal Medicine; Admitting Provider Internal Medicine; Emergency Provider Emergency Medicine; PCP Nurse Practitioner; Referring Provider Emergency Medicine; Visit Provider Internal Medicine
DX: A41.9 Sepsis, unspecified organism (principal); G93.41 Metabolic encephalopathy; J18.9 Pneumonia, unspecified organism; J96.01 Acute respiratory failure with hypoxia; E24.9 Cushing's syndrome, unspecified; N17.9 Acute kidney failure, unspecified; C34.90 Malignant neoplasm of unspecified part of unspecified bronchus or lung; I15.2 Hypertension secondary to endocrine disorders; D51.0 Vitamin B12 deficiency anemia due to intrinsic factor deficiency; F32.A Depression, unspecified; F41.9 Anxiety disorder, unspecified; E78.5 Hyperlipidemia, unspecified; R65.20 Severe sepsis without septic shock
CPT/HCPCS: 0241U; 36415; 51701; 71045; 80048; 80053; 80320; 81001; 82550; 83605; 83690; 83735; 84484; 85025; 87040; 87086; 93005; 93010; 96365; 96375; 99285; J0696; J1650; J1720

== ENCOUNTER 2025-03-29 19:22 | Emergency (ER) | payer MEDICARE, SELFPAY ==
[2024-10-03 23:04] VITALS: BMI 24.7
[2025-03-29] VITALS (8 sets, daily range): BP systolic 122–150; BP diastolic 63–70; PULSE 63–72; RESP 13–23; TEMP 36.6; O2SAT 94–98; BMI 26.5
--- NOTE | 2025-03-29 19:30 | EKG_ITS ---
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
--- NOTE | 2025-03-29 19:31 | ED.FALL ---
HPI - Fall General Chief Complaint: Fall Stated Complaint: Fall, Hit Head Time Seen by Provider: 03/29/25 19:31 History of Present Illness HPI Narrative: 84-year-old female history of [place]'s disease adrenal insufficiency anemia brought in by EMS for a fall at home whereby she tripped over herself and fell and hit her head against the hardwood floor ground but had no loss of consciousness. Patient denies headache, blurred vision, nausea, and vomiting, bowel, bladder, incontinence, joint pain, chest pain, shortness of breath, back pain. Other than what is stated 14 point review of system is negative Related Data Home Medications Medication Instructions Recorded Confirmed lorazepam 0.5 mg tablet 0.5 mg PO TID PRN Anxiety/Sleep 06/11/23 03/21/25 hydrocortisone 10 mg tablet 10 mg PO DAILY 12/13/23 03/21/25 metoprolol succinate 25 mg 25 mg PO ONCE PM 12/13/23 03/21/25 tablet,extended release 24 hr sennosides 8.6 mg tablet (senna) 34.4 mg PO BID 12/13/23 03/21/25 lisinopril 10 mg tablet 10 mg PO DAILY 05/23/24 03/21/25 ondansetron 8 mg disintegrating 8 mg PO Q12H PRN nausea/vomiting 10/03/24 03/21/25 tablet hydrochlorothiazide 25 mg tablet 25 mg PO DAILY 01/10/25 03/21/25 leuprolide 3.75 mg intramuscular mg IM 03/21/25 03/21/25 nystatin 100,000 unit/gram topical 1 applic topical 03/21/25 03/21/25 powder Previous Rx's Medication Instructions Recorded escitalopram oxalate 10 mg tablet 20 mg (2 x 10 mg) PO DAILY #180 11/02/23 tabs diphenhydramine HCl 50 mg tablet 50 mg PO BEDTIME PRN allergic 12/02/23 (Benadryl Allergy) reaction #1 tab cyanocobalamin (vitamin B-12) 1,000 mcg IM QMONTH #1 mL 10/04/24 1,000 mcg/mL injection solution atorvastatin 80 mg tablet 80 mg PO DAILY #90 tabs 01/10/25 ipratropium bromide 42 mcg (0.06 2 spray intranasal ONCE PRN runny 01/10/25 %) nasal spray nose #15 mL Allergies Allergy/AdvReac Type Severity Reaction Status Date / Time azithromycin Allergy Severe Anaphylaxis Verified 03/21/25 13:45 [From Zithromax Z-Anthony] Penicillins Allergy Severe Anaphylaxis Verified 03/21/25 13:45 clarithromycin [From Biaxin] Allergy Verified 03/21/25 13:45 Iodinated Contrast Media Allergy Verified 03/21/25 13:45 Sulfa (Sulfonamide Allergy Verified 03/21/25 13:45 Antibiotics) Review of Systems Review of Systems ROS Unobtainable: All systems reviewed & are unremarkable except as noted in HPI and below Patient History Medical History (Updated 03/29/25 @ 21:54 by Caleb Judd, DO) [place]'s disease Acute cholecystitis Anemia Liver mass Mass of right lung Prediabetes Hyperlipidemia Osteopenia (~11/2021) Rosacea Osteoporosis Kidney stones Hypertension (~1995) Monoallelic mutation of PDE11A gene Aneurysm Pernicious anemia History of anemia due to vitamin B12 deficiency History of pernicious anemia History of stroke History of Bobby disease Surgical History Anesthesia History of hysterectomy (~1977) History of parotidectomy (~1978) History of laparoscopic cholecystectomy (~2022) History of intracranial aneurysm History of adrenal surgery (~1996) Family History Father Congestive heart failure Mother Pheochromocytoma Cancer Sister Cancer Social History household members: spouse alcohol intake: current alcohol intake frequency: holidays/special occasions only Exam Narrative Exam Narrative: GENERAL: [84] year old patient appears stated age. Well-developed patient, in mild distress. HEAD: Atraumatic. Normocephalic. EYES: Pupils equal round and reactive. Extraocular motions intact. No scleral icterus. No injection or drainage. ENT: Nose without bleeding, purulent drainage. Throat without erythema, tonsillar hypertrophy or exudate. Airway patent. NECK: Trachea midline. Non tender CARDIOVASCULAR: Regular rate and rhythm without murmurs, gallops, or rubs. RESPIRATORY: Clear to auscultation. Breath sounds equal bilaterally. No wheezes, rales, or rhonchi. GASTROINTESTINAL: Abdomen soft, non-tender, nondistended. EXTREMITIES: No edema or joint tenderness. BACK: Nontender without deformity or crepitance. No flank tenderness. NEURO: AOx3.Nonfocal neuro exam /gcs 15/ moving all extremities SKIN: No rash or erythema of visible areas Initial Vital Signs Initial Vital Signs: Vital Signs Temperature 97.9 F 03/29/25 19:28 Pulse Rate 71 03/29/25 19:28 Respiratory Rate 16 03/29/25 19:28 Blood Pressure 131/63 03/29/25 19:28 Pulse Oximetry 98 03/29/25 19:28 Oxygen Delivery Method Room Air 03/29/25 19:28 Course Orders Ordered: ED Orders 03/29/25 19:24 EKG-12 Lead Stat 03/29/25 19:32 Complete Blood Count AUTO DIFF Stat Comprehensive Metabolic Panel Stat Lipase Stat Magnesium Stat NT-proBNP (BNP-Adult 18+) Stat PTT Partial Thromboplastin Navi Stat Prothrombin Time INR Stat Troponin & CK Cardiac Panel Stat 03/29/25 19:34 CT cervical spine wo con Stat CT head/brain wo con Stat 03/29/25 19:35 XR chest 1V Stat EKG-12 Lead Stat Discontinued Medications Aspirin (Aspirin 81 Mg Chew Tab) 324 mg PO NOW ONE Stop: 03/29/25 19:36 Last Admin: 03/29/25 20:58 Dose: Not Given Documented By: BEN Vital Signs Vital signs: Vital Signs - 8 hr 03/29/25 19:28 03/29/25 19:28 03/29/25 19:30 Temperature 97.9 F Pulse Rate 71 70 Respiratory Rate 16 Blood Pressure 131/63 122/64 Pulse Oximetry 98 95 Oxygen Delivery Method Room Air 03/29/25 19:30 03/29/25 20:00 03/29/25 20:30 Temperature Pulse Rate 72 69 64 Respiratory Rate 22 23 Blood Pressure Pulse Oximetry 95 97 94 Oxygen Delivery Method 03/29/25 21:00 03/29/25 21:30 Temperature Pulse Rate 63 63 Respiratory Rate 17 13 Blood Pressure Pulse Oximetry 95 94 Oxygen Delivery Method MDM - Fall Lab Data 03/29/25 19:32 03/29/25 19:32 Labs: Lab Results 03/29/25 Range/Units 19:32 WBC 11.8 H (4.5-11.0) X10^3/uL RBC 3.97 L (4.0-5.2) X10^6/uL Hgb 9.8 L (12.0-16.0) g/dL Hct 30.3 L (36-46) % MCV 76.5 L (80-100) fL MCH 24.7 L (26-34) PG MCHC 32.3 (30-36) % RDW 17.9 H (11.6-14.8) % Plt Count 275 (150-400) X10^3/uL Neut % (Auto) 84.4 H (50-75) % Lymph % (Auto) 6.8 L (25-40) % [place] % (Auto) 8.4 (3-14) % Eos % (Auto) 0.1 L (2-4) % Baso % (Auto) 0.3 (0-2) % Neut # (Auto) 89011 H (8301-0401) /uL Lymph # (Auto) 800 L (0625-8092) /uL [place] # (Auto) 1000 H (0-900) /uL Eos # (Auto) 0 (0-450) /uL Baso # (Auto) 0 (0-100) /uL PT 11.2 (9.4-12.5) SECONDS INR 1.0 (0.9-1.3) APTT 31 (25.1-36.5) SECONDS Sodium 136 L (137-145) mmol/L Potassium 4.6 (3.4-5.1) mmol/L Chloride 101 (98-107) mmol/L Carbon Dioxide 31 (22-32) mmol/L BUN 15 (7-17) mg/dL Creatinine 1.00 (0.52-1.04) mg/dL Estimated GFR 56 L (>60) mL/min BUN/Creatinine Ratio 15.0 (6-22) Glucose 114 H (70-99) mg/dL Calcium 9.0 (8.4-10.2) mg/dL Magnesium 2.0 (1.6-2.3) mg/dL Total Bilirubin 0.6 (0.2-1.3) mg/dL AST 24 (14-36) IU/L ALT 13 (<35) IU/L Alkaline Phosphatase 80 (38-126) U/L Total Creatine Kinase 42 (30-135) U/L Troponin I < 0.012 (0.01-0.034) ng/mL NT-Pro-B Natriuret Pep 929 H (<450) pg/mL Total Protein 6.6 (6.3-8.2) g/dL Albumin 3.9 (3.5-5.0) g/dL Globulin 2.7 (1.7-4.1) g/dL Albumin/Globulin Ratio 1.4 (1.0-2.8) Lipase 143 (23-300) U/L Imaging Data CT scan - head: Radiologist's Impression: [address] [address] [address] Scan Report Signed Patient: Mima Escalante MR#: [id number] : 1940 Acct:[id number] Age/Sex: 84 / F Date of Service: 03/29/25 Loc: ED Accession Number: [id number] Procedure: CT head/brain wo con Ordering Provider: Caleb Judd D.O. PROCEDURE: CT HEAD/BRAIN WO CON INDICATIONS: fall with contusion TECHNIQUE: Noncontrast 4.5 mm thick angled axial sections acquired from the foramen magnum to the vertex, with coronal and sagittal reformats. For radiation dose reduction, the following was used: automated exposure control, adjustment of mA and/or kV according to patient size. COMPARISON: [facility], MR, MR ANGIO HEAD WO CON, 06/04/2024, 11:47. [facility], MR, MR HEAD/BRAIN WO CON, 06/04/2024, 11:32. [facility], CT, CT HEAD/BRAIN WO CON, 06/08/2023, 19:47. FINDINGS: Image quality: Diagnostic. CSF spaces: Basal cisterns are patent. No extra-axial fluid collections. The ventricles are symmetric in size and shape. Brain: No intracranial bleeds or mass effect. There is cerebral volume loss, with resultant ventricular and sulcal prominence. There are periventricular and deep white matter chronic small vessel ischemic changes. There is intracranial internal carotid artery atherosclerosis. Skull and face: Calvarium and visualized facial bones appear intact, without suspicious lesions. Posterior parietal scalp hematoma. Sinuses: Visualized sinuses and mastoids are clear. IMPRESSION: 1. No acute intracranial process. 2. Moderate atrophy and chronic microvascular ischemic changes. Dictated by: Lelo Beckwith M.D. on 03/29/2025 at 20:10 Approved by: Lelo Beckwith M.D. on 03/29/2025 at 20:10 Chest x-ray: Radiologist's Impression: [address] [address] XRay Report Signed Patient: Mima Escalante MR#: [id number] : 1940 Acct:[id number] Age/Sex: 84 / F Date of Service: 03/29/25 Loc: ED Accession Number: [id number] Procedure: XR chest 1V Ordering Provider: Caleb Judd D.O. PROCEDURE: XR CHEST 1V INDICATIONS: chest pain TECHNIQUE: One view of the chest was acquired. COMPARISON: [facility], , XR CHEST 1V, 10/03/2024, 19:29. FINDINGS: Surgical changes and devices: None. Lungs and pleura: Lungs are clear. No pleural effusions or pneumothorax. Mediastinum: Mediastinal contours appear normal. Heart size is normal. Bones and chest wall: No suspicious bony lesions. Overlying soft tissues appear unremarkable. IMPRESSION: No acute pulmonary process. Dictated by: Lelo Beckwith M.D. on 03/29/2025 at 20:09 Approved by: Lelo Beckwith M.D. on 03/29/2025 at 20:10 ECG Data Interpretation: NSR Hr 71 ND 136 QRS [address]-t wave change Change from 10/03/24 [facility] Narrative Medical decision making narrative: All lab work vital signs nurse triage note medication list all imaging studies and all previous ER visits reviewed. GCS of 15 nonfocal neuro exam alert oriented x4 moving all extremities differential includes subdural hemorrhage, CVA, tumor, mass, contusion, fracture, and closed head injury. Return with new or worsening symptoms. Discharge Plan Departure Patient Disposition: Home Clinical Impression: Hematoma of occipital region of scalp Fall Qualifiers: Encounter type: initial encounter Qualified Code(s): W19.XXXA - Unspecified fall, initial encounter Instructions: How to Prevent Falls Activity Restrictions/Additional Instructions: Return with new or worsening symptoms. Follow up with PCP next week if no improvement symptoms. And follow up with the bond broker appointment on Tuesday. Prescriptions: No Action Benadryl Allergy 50 mg tablet 50 mg PO BEDTIME PRN (Reason: allergic reaction) Qty: 1 0RF Rx Instructions: 50mg by mouth 1 hour prior to exam cyanocobalamin (vitamin B-12) 1,000 mcg/mL solution 1,000 mcg IM QMONTH Qty: 1 0RF metoprolol succinate 25 mg tablet extended release 24 hr 25 mg PO ONCE PM sennosides [senna] 8.6 mg tablet 34.4 mg PO BID lisinopril 10 mg tablet 10 mg PO DAILY hydrochlorothiazide 25 mg tablet 25 mg PO DAILY atorvastatin 80 mg tablet 80 mg PO DAILY Qty: 90 3RF ipratropium bromide 42 mcg (0.06 %) spray,non-aerosol 2 spray intranasal ONCE PRN (Reason: runny nose) Qty: 15 0RF Rx Instructions: administer into each nostril escitalopram oxalate 10 mg tablet 20 mg PO DAILY Qty: 180 3RF nystatin 100,000 unit/gram powder 1 applic topical leuprolide 3.75 mg injectable IM Patient Comments: Pt does not know the dose but does get this every 8 weeks lorazepam 0.5 mg tablet 0.5 mg PO TID PRN (Reason: Anxiety/Sleep) Patient Comments: take 1 tablet by mouth up to three times a day if needed for anxiety hydrocortisone 10 mg tablet 10 mg PO DAILY Patient Comments: take 1 tablet by mouth every morning ondansetron 8 mg tablet,disintegrating 8 mg PO Q12H PRN (Reason: nausea/vomiting) Patient Comments: Takes daily before AM meds Referrals: Amadeo Rojas MD [Primary Care Provider] - Stand Alone Forms: Patient Portal/API/Survey
--- NOTE | 2025-03-29 19:34 | DI.CT.S_ITS ---
PROCEDURE: CT CERVICAL SPINE WO CON INDICATIONS: fall with contusion TECHNIQUE: Noncontrast 3 mm thick sections acquired from the skull base to the T4 level. Sagittal and coronal reformats were then constructed. For radiation dose reduction, the following was used: automated exposure control, adjustment of mA and/or kV according to patient size. COMPARISON: None. FINDINGS: Image quality: Excellent. Bones: No fractures or dislocations. Visualized superior ribs are intact. Soft tissues: Prevertebral soft tissues are normal in thickness. No paravertebral hematomas. No apical pneumothoraces. IMPRESSION: No displaced fracture or traumatic subluxation. Dictated by: Lelo Beckwith M.D. on 03/29/2025 at 20:10 Approved by: Lelo Beckwith M.D. on 03/29/2025 at 20:11
--- NOTE | 2025-03-29 19:34 | DI.CT.S_ITS ---
PROCEDURE: CT HEAD/BRAIN WO CON INDICATIONS: fall with contusion TECHNIQUE: Noncontrast 4.5 mm thick angled axial sections acquired from the foramen magnum to the vertex, with coronal and sagittal reformats. For radiation dose reduction, the following was used: automated exposure control, adjustment of mA and/or kV according to patient size. COMPARISON: [facility], MR, MR ANGIO HEAD WO CON, 06/04/2024, 11:47. [facility], MR, MR HEAD/BRAIN WO CON, 06/04/2024, 11:32. [facility], CT, CT HEAD/BRAIN WO CON, 06/08/2023, 19:47. FINDINGS: Image quality: Diagnostic. CSF spaces: Basal cisterns are patent. No extra-axial fluid collections. The ventricles are symmetric in size and shape. Brain: No intracranial bleeds or mass effect. There is cerebral volume loss, with resultant ventricular and sulcal prominence. There are periventricular and deep white matter chronic small vessel ischemic changes. There is intracranial internal carotid artery atherosclerosis. Skull and face: Calvarium and visualized facial bones appear intact, without suspicious lesions. Posterior parietal scalp hematoma. Sinuses: Visualized sinuses and mastoids are clear. IMPRESSION: 1. No acute intracranial process. 2. Moderate atrophy and chronic microvascular ischemic changes. Dictated by: Lelo Beckwith M.D. on 03/29/2025 at 20:10 Approved by: Lelo Beckwith M.D. on 03/29/2025 at 20:10
--- NOTE | 2025-03-29 19:35 | DI.RAD.S_ITS ---
PROCEDURE: XR CHEST 1V INDICATIONS: chest pain TECHNIQUE: One view of the chest was acquired. COMPARISON: [facility], CR, XR CHEST 1V, 10/03/2024, 19:29. FINDINGS: Surgical changes and devices: None. Lungs and pleura: Lungs are clear. No pleural effusions or pneumothorax. Mediastinum: Mediastinal contours appear normal. Heart size is normal. Bones and chest wall: No suspicious bony lesions. Overlying soft tissues appear unremarkable. IMPRESSION: No acute pulmonary process. Dictated by: Lelo Beckwith M.D. on 03/29/2025 at 20:09 Approved by: Lelo Beckwith M.D. on 03/29/2025 at 20:10
[2025-03-29 19:46] LABS: Add Manual Diff / Slide Review NO; Basophils Absolute Auto 0 /uL (0-100); Basophils Percent Auto 0.3 % (0-2); Eosinophils Absolute Auto 0 /uL (0-450); Eosinophils Percent Auto 0.1 % (2-4); Hematocrit 30.3 % (36-46); Hemoglobin 9.8 g/dL (12.0-16.0); Lymphocytes Absolute Auto 800 /uL (1100-4500); Lymphocytes Percent Auto 6.8 % (25-40); Mean Corpuscular HGB Conc 32.3 % (30-36); Mean Corpuscular Hemoglobin 24.7 PG (26-34); Mean Corpuscular Volume 76.5 fL (80-100); Monocytes Absolute Auto 1000 /uL (0-900); Monocytes Percent Auto 8.4 % (3-14); Neutrophils Absolute Auto 10000 /uL (1500-7000); Neutrophils Percent Auto 84.4 % (50-75); Platelet Count 275 X10^3/uL (150-400); Red Blood Cell Count 3.97 X10^6/uL (4.0-5.2); Red Cell Distribution Width 17.9 % (11.6-14.8); White Blood Cell Count 11.8 X10^3/uL (4.5-11.0)
[2025-03-29 19:53] LABS: Prothrombin Time 11.2 SECONDS (9.4-12.5)
[2025-03-29 19:56] LABS: PTT Partial Thromboplastin Tim 31 SECONDS (25.1-36.5)
[2025-03-29 19:57] LABS: Alanine Aminotransferase 13 IU/L (<35); Albumin 3.9 g/dL (3.5-5.0); Albumin Globulin Ratio 1.4 (1.0-2.8); Alkaline Phosphatase 80 U/L (38-126); Aspartate Aminotransferase 24 IU/L (14-36); Bilirubin Total 0.6 mg/dL (0.2-1.3); Blood Urea Nitrogen 15 mg/dL (7-17); Carbon Dioxide 31 mmol/L (22-32); Chloride 101 mmol/L (98-107); Creatine Kinase 42 U/L (30-135); Estimated Glomerular Filt Rate 56 mL/min (>60); Globulin 2.7 g/dL (1.7-4.1); Glucose 114 mg/dL (70-99); HEMOLYSIS < 15 (0-50); Lipase 143 U/L (23-300); Potassium 4.6 mmol/L (3.4-5.1); Sodium 136 mmol/L (137-145); Total Protein 6.6 g/dL (6.3-8.2)
[2025-03-29 20:08] LABS: NT-proBNP (BNP-Adult 18+) 929 pg/mL (<450); Troponin I < 0.012 ng/mL (0.01-0.034)
== END 2025-03-29 22:15 | disposition home or self-care (01) ==
PROVIDERS: Emergency Provider Family Medicine; PCP Family Medicine
DX: S00.03XA Contusion of scalp, initial encounter (principal); W01.198A Fall on same level from slipping, tripping and stumbling with subsequent striking against other object, initial encounter
CPT/HCPCS: 70450; 71045; 72125; 80053; 82550; 83690; 83735; 83880; 84484; 85025; 85610; 85730; 93005; 99283; 99284

== ENCOUNTER 2025-05-09 09:38 | Emergency (ER) | payer MEDICARE, SELFPAY ==
[2024-10-03 23:04] VITALS: BMI 24.7
[2025-05-09 09:52] VITALS: BP 182/74; PULSE 75; RESP 16; TEMP 36.8; O2SAT 99; BMI 27.4
--- NOTE | 2025-05-09 09:59 | DI.CT.S_ITS ---
PROCEDURE: CT HEAD/BRAIN WO CON INDICATIONS: fall hit head in shower large hematoma LAC TECHNIQUE: Noncontrast 4.5 mm thick angled axial sections acquired from the foramen magnum to the vertex, with coronal and sagittal reformats. For radiation dose reduction, the following was used: automated exposure control, adjustment of mA and/or kV according to patient size. COMPARISON: [facility], CT, CT HEAD/BRAIN WO CON, 03/29/2025, 19:47. FINDINGS: Image quality: Diagnostic. CSF spaces: Basal cisterns are patent. No extra-axial fluid collections. The ventricles are symmetric in size and shape. Brain: No intracranial bleeds or mass effect. There is cerebral volume loss, with resultant ventricular and sulcal prominence. There are periventricular and deep white matter chronic small vessel ischemic changes. There is intracranial internal carotid artery atherosclerosis. Skull and face: Large occipital scalp hematoma is seen. Calvarium and visualized facial bones appear intact, without suspicious lesions. Sinuses: Visualized sinuses and mastoids are clear. IMPRESSION: 1. No acute intracranial pathology. 2. Occipital scalp hematoma and swelling. No acute skull fracture. Dictated by: Pino Mathew M.D. on 05/09/2025 at 10:48 Approved by: Pino Mathew M.D. on 05/09/2025 at 10:48
--- NOTE | 2025-05-09 09:59 | DI.CT.S_ITS ---
PROCEDURE: CT CERVICAL SPINE WO CON INDICATIONS: fall hit head in shower large hematoma LAC TECHNIQUE: Noncontrast 3 mm thick sections acquired from the skull base to the T4 level. Sagittal and coronal reformats were then constructed. For radiation dose reduction, the following was used: automated exposure control, adjustment of mA and/or kV according to patient size. COMPARISON: [facility], CT, CT CERVICAL SPINE WO CON, 03/29/2025, 19:47. FINDINGS: Image quality: Excellent. Bones: No fractures or dislocations. Loss of disc height, degenerative endplate changes and bilateral facet hypertrophic changes are noted throughout cervical spine most notably at C5-6 level unchanged from prior study. Visualized superior ribs are intact. Soft tissues: Prevertebral soft tissues are normal in thickness. No paravertebral hematomas. No apical pneumothoraces. IMPRESSION: 1. No displaced fracture or traumatic subluxation. 2. Spondylitic changes throughout cervical spine not significantly changed from previous study. Dictated by: Pino Mathew M.D. on 05/09/2025 at 10:48 Approved by: Pino Mathew M.D. on 05/09/2025 at 11:00
[2025-05-09 10:07] LABS: Add Manual Diff / Slide Review NO; Basophils Absolute Auto 0 /uL (0-100); Basophils Percent Auto 0.3 % (0-2); Eosinophils Absolute Auto 300 /uL (0-450); Hematocrit 27.1 % (36-46); Hemoglobin 8.8 g/dL (12.0-16.0); Lymphocytes Absolute Auto 1200 /uL (1100-4500); Lymphocytes Percent Auto 9.3 % (25-40); Mean Corpuscular HGB Conc 32.7 % (30-36); Mean Corpuscular Volume 76.5 fL (80-100); Monocytes Absolute Auto 1300 /uL (0-900); Monocytes Percent Auto 10.1 % (3-14); Neutrophils Absolute Auto 10100 /uL (1500-7000); Neutrophils Percent Auto 78.3 % (50-75); Platelet Count 390 X10^3/uL (150-400); Red Blood Cell Count 3.54 X10^6/uL (4.0-5.2); White Blood Cell Count 12.8 X10^3/uL (4.5-11.0)
[2025-05-09 10:24] LABS: Alanine Aminotransferase 15 IU/L (<35); Albumin 3.7 g/dL (3.5-5.0); Albumin Globulin Ratio 1.2 (1.0-2.8); Alkaline Phosphatase 92 U/L (38-126); Aspartate Aminotransferase 24 IU/L (14-36); BUN Creatinine Ratio 24.4 (6-22); Bilirubin Total 0.4 mg/dL (0.2-1.3); Blood Urea Nitrogen 22 mg/dL (7-17); Calcium 8.9 mg/dL (8.4-10.2); Carbon Dioxide 27 mmol/L (22-32); Chloride 102 mmol/L (98-107); Estimated Glomerular Filt Rate > 60 mL/min (>60); Glucose 98 mg/dL (70-99); HEMOLYSIS < 15 (0-50); Sodium 137 mmol/L (137-145); Total Protein 6.7 g/dL (6.3-8.2)
--- NOTE | 2025-05-09 11:40 | ED.FALL ---
HPI - Fall <Kavita Otero PA-C - Last Filed: 05/09/25 13:18> General Chief Complaint: Fall Stated Complaint: Fall, Lac and hematoma on head Time Seen by Provider: 05/09/25 11:28 History of Present Illness HPI Narrative: Ms. Escalante is a pleasant 84-year-old female with a past medical history of adrenal insufficiency, Bobby's disease, anemia, hyperlipidemia who presents to the emergency department via EMS from [facility] for a scalp laceration after slipping and falling in the shower. Patient states that she dropped her shampoo bottle lid and shampoos spilled on the floor so the floor of the shower became very slippery and she fell backwards hitting her head on a rug outside of the shower. She now has a hematoma and a laceration on her posterior superior occipital scalp. She denies loss of consciousness, visual disturbance, nausea or vomiting, numbness or tingling, neck back chest or abdominal pain, extremity pain. She has been ambulatory since the fall. She denies any head pain. She is here with her daughter. She is not on blood thinners. Tdap up-to-date, 09/01/2021. Related Data Home Medications ?Medication ?Instructions ?Recorded ?Confirmed lorazepam 0.5 mg tablet 0.5 mg PO TID PRN Anxiety/Sleep 06/11/23 03/21/25 hydrocortisone 10 mg tablet 10 mg PO DAILY 12/13/23 03/21/25 metoprolol succinate 25 mg 25 mg PO ONCE PM 12/13/23 03/21/25 tablet,extended release 24 hr sennosides 8.6 mg tablet (senna) 34.4 mg PO BID 12/13/23 03/21/25 lisinopril 10 mg tablet 10 mg PO DAILY 05/23/24 03/21/25 ondansetron 8 mg disintegrating 8 mg PO Q12H PRN nausea/vomiting 10/03/24 03/21/25 tablet hydrochlorothiazide 25 mg tablet 25 mg PO DAILY 01/10/25 03/21/25 leuprolide 3.75 mg intramuscular mg IM 03/21/25 03/21/25 nystatin 100,000 unit/gram topical 1 applic topical 03/21/25 03/21/25 powder Previous Rx's ?Medication ?Instructions ?Recorded escitalopram oxalate 10 mg tablet 20 mg (2 x 10 mg) PO DAILY #180 11/02/23 tabs diphenhydramine HCl 50 mg tablet 50 mg PO BEDTIME PRN allergic 12/02/23 (Benadryl Allergy) reaction #1 tab cyanocobalamin (vitamin B-12) 1,000 mcg IM QMONTH #1 mL 10/04/24 1,000 mcg/mL injection solution atorvastatin 80 mg tablet 80 mg PO DAILY #90 tabs 01/10/25 ipratropium bromide 42 mcg (0.06 2 spray intranasal ONCE PRN runny 01/10/25 %) nasal spray nose #15 mL gabapentin 300 mg capsule 300 mg PO TID PRN pain #90 caps 04/15/25 furosemide 40 mg tablet (Lasix) 40 mg PO DAILY #90 tabs 05/06/25 potassium chloride 20 mEq 20 meq PO DAILY #90 tabs 05/06/25 tablet,extended release Allergies Allergy/AdvReac Type Severity Reaction Status Date / Time azithromycin (From Zithromax Allergy Severe Anaphylaxis Verified 03/21/25 13:45 Z-Anthony) Penicillins Allergy Severe Anaphylaxis Verified 03/21/25 13:45 clarithromycin (From Biaxin) Allergy Verified 03/21/25 13:45 Iodinated Contrast Media Allergy Verified 03/21/25 13:45 Sulfa (Sulfonamide Allergy Verified 03/21/25 13:45 Antibiotics) Review of Systems <Kavita Otero PA-C - Last Filed: 05/09/25 13:18> Review of Systems ROS Unobtainable: All systems reviewed & are unremarkable except as noted in HPI and below Patient History <Kavita Otero PA-C - Last Filed: 05/09/25 13:18> Medical History Bobby's disease Acute cholecystitis Anemia Liver mass Mass of right lung Prediabetes Hyperlipidemia Osteopenia (~11/2021) Rosacea Osteoporosis Kidney stones Hypertension (~1995) Monoallelic mutation of PDE11A gene Aneurysm Pernicious anemia History of anemia due to vitamin B12 deficiency History of pernicious anemia History of stroke History of Bobby disease Surgical History Anesthesia History of hysterectomy (~1977) History of parotidectomy (~1978) History of laparoscopic cholecystectomy (~2022) History of intracranial aneurysm History of adrenal surgery (~1996) Family History Father Congestive heart failure Mother Pheochromocytoma Cancer Sister Cancer Social History household members: spouse alcohol intake: current alcohol intake frequency: holidays/special occasions only Exam <Kavita Otero PA-C - Last Filed: 05/09/25 13:18> Narrative Exam Narrative: GENERAL: 84 year old patient appears stated age. Well-developed patient, in no acute distress. HEAD: Hematoma on posterior superior occipital scalp with overlying 2 cm linear laceration, no active bleeding. EYES: Pupils round and reactive to light, left pupil is slightly larger than right pupil. Extraocular motions intact. No scleral icterus. No injection or drainage. ENT: Nose without bleeding, purulent drainage. Throat without erythema, tonsillar hypertrophy or exudate. Airway patent. NECK: Trachea midline. Cervical ROM intact. CARDIOVASCULAR: Regular rate and rhythm. RESPIRATORY: Nonlabored respirations. ?Speaking in clear, full sentences. ?Clear to auscultation. Breath sounds equal bilaterally. No wheezes, rales, or rhonchi. ? GASTROINTESTINAL: Abdomen soft, non-tender, nondistended. EXTREMITIES: No edema or joint tenderness. BACK: Nontender without deformity or crepitance. NEURO: AOx3. ?Clear speech. ?Moves all 4 extremities appropriately. Ambulates independently during exam. SKIN: Scalp hematoma and laceration. Initial Vital Signs Initial Vital Signs: Vital Signs Temperature 98.2 F 05/09/25 09:52 Pulse Rate 75 05/09/25 09:52 Respiratory Rate 16 05/09/25 09:52 Blood Pressure 182/74 H 05/09/25 09:52 Pulse Oximetry 99 05/09/25 09:52 Oxygen Delivery Method Room Air 05/09/25 09:52 <Naomy Arreguin DO - Last Filed: 05/10/25 19:19> Initial Vital Signs Initial Vital Signs: Vital Signs Temperature 98.2 F 05/09/25 09:52 Pulse Rate 75 05/09/25 09:52 Respiratory Rate 16 05/09/25 09:52 Blood Pressure 182/74 H 05/09/25 09:52 Pulse Oximetry 99 05/09/25 09:52 Oxygen Delivery Method Room Air 05/09/25 09:52 Procedures <Kavita Otero PA-C - Last Filed: 05/09/25 13:18> Laceration Repair Laceration 1: Time of procedure: 13:17 Site: scalp Size (cm): 2 Description: linear Depth: simple, single layer Local Anesthetic: lidocaine 1% and with epi Amount of anesthesia used (mL): 4 Pre-repair: wound explored, irrigated extensively and deep structures intact Skin layer closed with: tyler Number of sutures: 5 Course <Kavita Otero PA-C - Last Filed: 05/09/25 13:18> Orders Ordered: Discontinued Medications Bacitracin (Bacitracin Oint 0.9 Gm Pckt) 1 applic TOP NOW ONE Stop: 05/09/25 13:09 Last Admin: 05/09/25 13:16 Dose: 1 applic Documented By: MICHAELA Vital Signs Vital signs: Vital Signs - 8 hr 05/09/25 09:52 Temperature 98.2 F Pulse Rate 75 Respiratory Rate 16 Blood Pressure 182/74 H Pulse Oximetry 99 Oxygen Delivery Method Room Air <Naomy Arreguin DO - Last Filed: 05/10/25 19:19> Orders Ordered: Discontinued Medications Bacitracin (Bacitracin Oint 0.9 Gm Pckt) 1 applic TOP NOW ONE Stop: 05/09/25 13:09 Last Admin: 05/09/25 13:16 Dose: 1 applic Documented By: MICHAELA Vital Signs Vital signs: Vital Signs - 8 hr 05/09/25 09:52 Temperature 98.2 F Pulse Rate 75 Respiratory Rate 16 Blood Pressure 182/74 H Pulse Oximetry 99 Oxygen Delivery Method Room Air MDM - Fall <MELISSA Blevins Last Filed: 05/09/25 13:18> Medical Records Attestation: I reviewed the patient's medical records. Lab Data 05/09/25 09:53 05/09/25 09:53 Labs: Lab Results 05/09/25 Range/Units 09:53 WBC 12.8 H (4.5-11.0) X10^3/uL RBC 3.54 L (4.0-5.2) X10^6/uL Hgb 8.8 L (12.0-16.0) g/dL Hct 27.1 L (36-46) % MCV 76.5 L (80-100) fL MCH 25.0 L (26-34) PG MCHC 32.7 (30-36) % RDW 17.0 H (11.6-14.8) % Plt Count 390 (150-400) X10^3/uL Neut % (Auto) 78.3 H (50-75) % Lymph % (Auto) 9.3 L (25-40) % [place] % (Auto) 10.1 (3-14) % Eos % (Auto) 2.0 (2-4) % Baso % (Auto) 0.3 (0-2) % Neut # (Auto) 72263 H (7425-0949) /uL Lymph # (Auto) 1200 (3331-3868) /uL [place] # (Auto) 1300 H (0-900) /uL Eos # (Auto) 300 (0-450) /uL Baso # (Auto) 0 (0-100) /uL Sodium 137 (137-145) mmol/L Potassium 4.0 (3.4-5.1) mmol/L Chloride 102 (98-107) mmol/L Carbon Dioxide 27 (22-32) mmol/L BUN 22 H (7-17) mg/dL Creatinine 0.90 (0.52-1.04) mg/dL Estimated GFR > 60 (>60) mL/min BUN/Creatinine Ratio 24.4 H (6-22) Glucose 98 (70-99) mg/dL Calcium 8.9 (8.4-10.2) mg/dL Total Bilirubin 0.4 (0.2-1.3) mg/dL AST 24 (14-36) IU/L ALT 15 (<35) IU/L Alkaline Phosphatase 92 (38-126) U/L Total Protein 6.7 (6.3-8.2) g/dL Albumin 3.7 (3.5-5.0) g/dL Globulin 3.0 (1.7-4.1) g/dL Albumin/Globulin Ratio 1.2 (1.0-2.8) Imaging Data CT scan - head: Radiologist's Impression: PROCEDURE: CT HEAD/BRAIN WO CON INDICATIONS: fall hit head in shower large hematoma LAC TECHNIQUE: Noncontrast 4.5 mm thick angled axial sections acquired from the foramen magnum to the vertex, with coronal and sagittal reformats. For radiation dose reduction, the following was used: automated exposure control, adjustment of mA and/or kV according to patient size. COMPARISON: [facility], CT, CT HEAD/BRAIN WO CON, 03/29/2025, 19:47. FINDINGS: Image quality: Diagnostic. CSF spaces: Basal cisterns are patent. No extra-axial fluid collections. The ventricles are symmetric in size and shape. Brain: No intracranial bleeds or mass effect. There is cerebral volume loss, with resultant ventricular and sulcal prominence. There are periventricular and deep white matter chronic small vessel ischemic changes. There is intracranial internal carotid artery atherosclerosis. Skull and face: Large occipital scalp hematoma is seen. Calvarium and visualized facial bones appear intact, without suspicious lesions. Sinuses: Visualized sinuses and mastoids are clear. IMPRESSION: 1. No acute intracranial pathology. 2. Occipital scalp hematoma and swelling. No acute skull fracture. Dictated by: Pino Mathew M.D. on 05/09/2025 at 10:48 Approved by: Pino Mathwe M.D. on 05/09/2025 at 10:48 CT - cervical spine: Radiologist's Impression: PROCEDURE: CT CERVICAL SPINE WO CON INDICATIONS: fall hit head in shower large hematoma LAC TECHNIQUE: Noncontrast 3 mm thick sections acquired from the skull base to the T4 level. Sagittal and coronal reformats were then constructed. For radiation dose reduction, the following was used: automated exposure control, adjustment of mA and/or kV according to patient size. COMPARISON: [facility], CT, CT CERVICAL SPINE WO CON, 03/29/2025, 19:47. FINDINGS: Image quality: Excellent. Bones: No fractures or dislocations. Loss of disc height, degenerative endplate changes and bilateral facet hypertrophic changes are noted throughout cervical spine most notably at C5-6 level unchanged from prior study. Visualized superior ribs are intact. Soft tissues: Prevertebral soft tissues are normal in thickness. No paravertebral hematomas. No apical pneumothoraces. IMPRESSION: 1. No displaced fracture or traumatic subluxation. 2. Spondylitic changes throughout cervical spine not significantly changed from previous study. Dictated by: Pino Mathew M.D. on 05/09/2025 at 10:48 Approved by: Pino Mathew M.D. on 05/09/2025 at 11:00 [facility] Narrative Medical decision making narrative: 84-year-old female with a past medical history of adrenal insufficiency, Bobby's disease, anemia, hyperlipidemia who presents to the emergency department via EMS from [facility] for a scalp laceration after slipping and falling in the shower. Differential diagnosis includes but isn't limited to scalp hematoma, laceration, ICH, skull fracture, etc. Head CT, cervical spine CT, CBC, CMP obtained in triage. On exam patient is in no acute distress, nontoxic appearing, she is making jokes and able to walk around the emergency department room. On her posterior superior occipital scalp she has a hematoma with overlying laceration, bleeding is controlled. CT cervical spine shows no displaced fracture or traumatic subluxation. Head CT reveals no acute intracranial pathology, there is an occipital scalp hematoma and swelling, no acute skull fracture. Labs reveal elevated white blood cell count 12.8, hemoglobin 8.8, platelets 390. Patient does appear to have chronically elevated white blood cell count, and also chronic anemia, hemoglobin was 9.8 03/29/2025. Normal renal function with a creatinine of 0.9. Glucose 98. Discussed all lab work findings with the patient and daughter, they are aware, strict bleeding precautions given. Patient declines urinalysis test state she has not having any urinary symptoms and does not want to provide a sample. Wound was anesthetized with lidocaine 1% with epinephrine. Extensively cleansed and irrigated and repaired using tyler. Bacitracin applied. Discussed proper wound care with the patient, ED return precautions. Also discussed ED return precautions for head trauma. Patient and her daughter verbalized understanding of all information, patient is eagerly requesting discharge back to [facility]. She is ambulatory without difficulty. She is stable for discharge home. <Naomy Arreguin, DO - Last Filed: 05/10/25 19:19> Lab Data Labs: Lab Results 05/09/25 Range/Units 09:53 WBC 12.8 H (4.5-11.0) X10^3/uL RBC 3.54 L (4.0-5.2) X10^6/uL Hgb 8.8 L (12.0-16.0) g/dL Hct 27.1 L (36-46) % MCV 76.5 L (80-100) fL MCH 25.0 L (26-34) PG MCHC 32.7 (30-36) % RDW 17.0 H (11.6-14.8) % Plt Count 390 (150-400) X10^3/uL Neut % (Auto) 78.3 H (50-75) % Lymph % (Auto) 9.3 L (25-40) % [place] % (Auto) 10.1 (3-14) % Eos % (Auto) 2.0 (2-4) % Baso % (Auto) 0.3 (0-2) % Neut # (Auto) 77306 H (4814-3668) /uL Lymph # (Auto) 1200 (0493-0841) /uL [place] # (Auto) 1300 H (0-900) /uL Eos # (Auto) 300 (0-450) /uL Baso # (Auto) 0 (0-100) /uL Sodium 137 (137-145) mmol/L Potassium 4.0 (3.4-5.1) mmol/L Chloride 102 (98-107) mmol/L Carbon Dioxide 27 (22-32) mmol/L BUN 22 H (7-17) mg/dL Creatinine 0.90 (0.52-1.04) mg/dL Estimated GFR > 60 (>60) mL/min BUN/Creatinine Ratio 24.4 H (6-22) Glucose 98 (70-99) mg/dL Calcium 8.9 (8.4-10.2) mg/dL Total Bilirubin 0.4 (0.2-1.3) mg/dL AST 24 (14-36) IU/L ALT 15 (<35) IU/L Alkaline Phosphatase 92 (38-126) U/L Total Protein 6.7 (6.3-8.2) g/dL Albumin 3.7 (3.5-5.0) g/dL Globulin 3.0 (1.7-4.1) g/dL Albumin/Globulin Ratio 1.2 (1.0-2.8) Discharge Plan Departure Patient Disposition: Home Clinical Impression: Hematoma of occipital region of scalp Laceration of scalp Qualifiers: Encounter type: initial encounter Qualified Code(s): S01.01XA - Laceration without foreign body of scalp, initial encounter Fall from slipping Qualifiers: Encounter type: initial encounter Qualified Code(s): W01.0XXA - Fall on same level from slipping, tripping and stumbling without subsequent striking against object, initial encounter Instructions: DI for Laceration Repair -- Tyler, DI for Laceration Repair of the Scalp Activity Restrictions/Additional Instructions: Dear Ramón Boris, Thank you for coming to the emergency department. Today you were evaluated for a slip and fall causing a hematoma and laceration on the back of your scalp. We have placed 5 tyler. They need to be removed in 7-10 days. You may do this in your doctor's office, the [id number], or here if necessary. Please keep the dressing on your wound clean, dry, and intact for the next 24 hours. After this time, you may remove the dressing and gently clean the wound with soap and water, then pat dry. Keep the wound clean and covered with ointment and gauze if possible. Avoid soaking the wound in any water such as a bath, pool, or the ocean. If you develop any signs of wound infection such as increased redness, pus drainage, streaking redness, or fevers, please return to the ER immediately for evaluation. Please wait shampoo your hair for at least 24 hours. After this time you may shampoo the hair but be sure to rinse the hair very well after so that no hair product remains near the laceration. I recommend placing gauze over the laceration then wearing a hat to help keep the gauze in place. Please be very careful when brushing or combing the hair as you can pull out the tyler accidentally. Please follow up with your primary care doctor within the next 2-3 days for ER follow-up. (If you do not have a PCP you can call [phone]. ?to schedule an appointment with an [facility] Primary Care Provider) IF YOU DEVELOP ANY NEW OR WORSENING SYMPTOMS, RETURN TO THE ER! Please read the attached instructions, they highlight more specific treatments and interventions for you at home. Thank you for letting me participate in your care, Kavita Otero PA-C Prescriptions: No Action Benadryl Allergy 50 mg tablet 50 mg PO BEDTIME PRN (Reason: allergic reaction) Qty: 1 0RF Rx Instructions: 50mg by mouth 1 hour prior to exam cyanocobalamin (vitamin B-12) 1,000 mcg/mL solution 1,000 mcg IM QMONTH Qty: 1 0RF gabapentin 300 mg capsule 300 mg PO TID PRN (Reason: pain) Qty: 90 3RF Rx Instructions: take 300mg by mouth 3x/day as needed for pain potassium chloride 20 mEq tablet extended release 20 meq PO DAILY Qty: 90 3RF furosemide [Lasix] 40 mg tablet 40 mg PO DAILY Qty: 90 3RF metoprolol succinate 25 mg tablet extended release 24 hr 25 mg PO ONCE PM sennosides [senna] 8.6 mg tablet 34.4 mg PO BID lisinopril 10 mg tablet 10 mg PO DAILY hydrochlorothiazide 25 mg tablet 25 mg PO DAILY atorvastatin 80 mg tablet 80 mg PO DAILY Qty: 90 3RF ipratropium bromide 42 mcg (0.06 %) spray,non-aerosol 2 spray intranasal ONCE PRN (Reason: runny nose) Qty: 15 0RF Rx Instructions: administer into each nostril escitalopram oxalate 10 mg tablet 20 mg PO DAILY Qty: 180 3RF nystatin 100,000 unit/gram powder 1 applic topical leuprolide 3.75 mg injectable IM Patient Comments: Pt does not know the dose but does get this every 8 weeks lorazepam 0.5 mg tablet 0.5 mg PO TID PRN (Reason: Anxiety/Sleep) Patient Comments: take 1 tablet by mouth up to three times a day if needed for anxiety hydrocortisone 10 mg tablet 10 mg PO DAILY Patient Comments: take 1 tablet by mouth every morning ondansetron 8 mg tablet,disintegrating 8 mg PO Q12H PRN (Reason: nausea/vomiting) Patient Comments: Takes daily before AM meds Referrals: Amadeo Rojas MD [Primary Care Provider, Family Practice] Stand Alone Forms: Patient Portal/API ED Sign-out <Naomy Arreguin, - Last Filed: 05/10/25 19:19> Cosign ED Attending Cosignature Attestation: I was immediately available in the department for consultation.
[2025-05-09] MEDS: BACITRACIN OINT 0.9 GM PCKT 1 APPLIC TOP (13:16)
[2025-05-09 13:27] VITALS: BP 178/69; PULSE 60; RESP 16; O2SAT 98
== END 2025-05-09 13:28 | disposition home or self-care (01) ==
PROVIDERS: Emergency Medicine; Emergency Provider Physician Assistant; PCP Family Medicine
DX: S01.01XA Laceration without foreign body of scalp, initial encounter (principal); S00.03XA Contusion of scalp, initial encounter; W18.2XXA Fall in (into) shower or empty bathtub, initial encounter
CPT/HCPCS: 12001; 70450; 72125; 80053; 85025; 99282; 99284

== ENCOUNTER → 2025-05-27 09:19 | Outpatient (CLI) | payer MEDICARE, SELFPAY ==
[2024-10-03 23:04] VITALS: BMI 24.7
[2025-05-27 10:13] LABS: Erythrocyte Sedimentation Rate 57 MM/HR (0-20)
[2025-05-27 10:23] LABS: C-Reactive Protein Quant 5.2 mg/dL (<1.0)
[2025-05-27 10:30] LABS: Rheumatoid Factor < 8.6 IU/mL (<12.0)
[2025-05-29 12:11] LABS: CCP Antibodies IgG/IgA 5 units (0-19)
== END ==
PROVIDERS: PCP Family Medicine; Referring Provider Physician Assistant; Visit Provider Physician Assistant
DX: E78.5 Hyperlipidemia, unspecified (principal); I10 Essential (primary) hypertension; M25.40 Effusion, unspecified joint; M25.50 Pain in unspecified joint; R70.0 Elevated erythrocyte sedimentation rate; Z83.2 Family history of diseases of the blood and blood-forming organs and certain disorders involving the immune mechanism
CPT/HCPCS: 36415; 85651; 86140; 86200; 86430

== ENCOUNTER → 2025-05-30 11:00 | Outpatient (CLI) | payer MEDICARE, SELFPAY ==
[2024-10-03 23:04] VITALS: BMI 24.7
[2025-06-03 14:39] LABS: ANA Screen, IFA Negative (.)
== END ==
PROVIDERS: PCP Family Medicine; Referring Provider Family Medicine; Visit Provider Physician Assistant
DX: R70.0 Elevated erythrocyte sedimentation rate (principal)
CPT/HCPCS: 36415; 86038

== ENCOUNTER → 2025-06-03 08:51 | Outpatient (CLI) | payer MEDICARE, SELFPAY ==
[2024-10-03 23:04] VITALS: BMI 24.7
[2025-06-03 09:51] LABS: Blood Urea Nitrogen 13 mg/dL (7-17); Calcium 9.2 mg/dL (8.4-10.2); Carbon Dioxide 29 mmol/L (22-32); Chloride 104 mmol/L (98-107); Cholesterol 129 mg/dL (140-199); Estimated Glomerular Filt Rate > 60 mL/min (>60); Glucose 95 mg/dL (70-99); HDL Cholesterol 47 mg/dL (40-60); HEMOLYSIS 17 (0-50); Potassium 4.6 mmol/L (3.4-5.1); Sodium 137 mmol/L (137-145); Triglycerides 148 mg/dL (35-150)
[2025-06-03 10:11] LABS: Free T4, Direct Thyroxine 1.00 ng/dL (0.78-2.19)
[2025-06-03 10:24] LABS: Thyroid Stimulating Hormone 3.37 uIU/mL (0.47-4.68)
== END ==
PROVIDERS: PCP Family Medicine; Referring Provider Internal Medicine Cardiovascular Disease; Visit Provider Internal Medicine Cardiovascular Disease
DX: E78.5 Hyperlipidemia, unspecified (principal); I10 Essential (primary) hypertension
CPT/HCPCS: 36415; 80048; 80061; 84439; 84443

== ENCOUNTER 2025-06-13 12:28 | Emergency (ER) | payer MEDICARE, SELFPAY ==
[2024-10-03 23:04] VITALS: BMI 24.7
[2025-06-13] VITALS (16 sets, daily range): BP systolic 112–176; BP diastolic 57–117; PULSE 57–78; RESP 14–26; TEMP 36.9; O2SAT 93–99; BMI 28.0
--- NOTE | 2025-06-13 12:53 | EKG_ITS ---
[address] [address] Test Date: 2025-06-13 Pat Name: Mima Escalante Department: Room: Gender: Female Remote [employer] Developer: ARMANDO : 1940 Requested By: Order Number: [id number] Reading MD: Sanju Aceves Measurements Intervals [place] Rate: 65 P: 48 FL: 128 QRS: 9 QRSD: 74 T: 34 QT: 426 QTc: 443 Interpretive Statements Normal sinus rhythm Electronically Signed On 06-13-2025 18:08:54 PDT by Sanju Aceves
--- NOTE | 2025-06-13 13:28 | PC.NURSE ---
patient has ataxia like symptoms in both legs which she states is normal for her. She has difficulties moving legs in a smooth controlled manner due to reports of spasms. She is here due to having right sided spasms on her should knee and hip which she states has been going on for the last 24-48 hours. Her and her daughter are unclear on exactly when it started since she has had similar spasms.
--- NOTE | 2025-06-13 13:45 | PC.NURSE ---
Unable to obtain IV access. Attempted 2 times. Charge nurse notified at [id number].
--- NOTE | 2025-06-13 14:55 | DI.CT.S_ITS ---
PROCEDURE: CT HEAD/BRAIN WO CON INDICATIONS: Left facial droop TECHNIQUE: Noncontrast 4.5 mm thick angled axial sections acquired from the foramen magnum to the vertex, with coronal and sagittal reformats. For radiation dose reduction, the following was used: automated exposure control, adjustment of mA and/or kV according to patient size. COMPARISON: [facility], CT, CT HEAD/BRAIN WO CON, 05/09/2025, 10:03. FINDINGS: Image quality: Diagnostic. CSF spaces: Basal cisterns are patent. No extra-axial fluid collections. The ventricles are symmetric in size and shape. Brain: No intracranial bleeds or mass effect. There is cerebral volume loss, with resultant ventricular and sulcal prominence. There are periventricular and deep white matter chronic small vessel ischemic changes. There is intracranial internal carotid artery atherosclerosis. Skull and face: Calvarium and visualized facial bones appear intact, without suspicious lesions. Sinuses: Visualized sinuses and mastoids are clear. IMPRESSION: No acute intracranial pathology. Dictated by: Richard Garcia M.D. on 06/13/2025 at 15:33 Approved by: Richard Garcia M.D. on 06/13/2025 at 15:34
--- NOTE | 2025-06-13 14:55 | ED.NEUROSD ---
HPI - Neuro Symptoms/Deficit General Chief Complaint: Neuro Symptoms/Deficit Stated Complaint: has had 3 falls, aneurysm in brain- sent by Crystal Time Seen by Provider: 06/13/25 14:09 Source: patient and family Mode of arrival: Wheelchair History of Present Illness HPI Narrative: Patient here for left facial droop with limbs on the right weakness worse than the left. The patient does have history of stroke in the past. Has history of brain aneurysm without any surgical intervention. Patient denies any recent illness fever chills cough cold congestion black or bloody stools or urinary complaints. Patient lives Assisted living at [facility]. Primary care is Dr. Amadeo Rojas. Patient denies any chest pain back pain or pain. On Anticoagulants: No Related Data Home Medications ?Medication ?Instructions ?Recorded ?Confirmed lorazepam 0.5 mg tablet 0.5 mg PO TID PRN Anxiety/Sleep 06/11/23 05/21/25 metoprolol succinate 25 mg 25 mg PO ONCE PM 12/13/23 05/21/25 tablet,extended release 24 hr lisinopril 10 mg tablet 10 mg PO DAILY 05/23/24 05/21/25 hydrochlorothiazide 25 mg tablet 25 mg PO DAILY 01/10/25 05/21/25 leuprolide 3.75 mg intramuscular mg IM 03/21/25 05/21/25 nystatin 100,000 unit/gram topical 1 applic topical 03/21/25 05/21/25 powder acetaminophen 650 mg 650 mg PO Q12H 05/21/25 05/21/25 tablet,extended release (Tylenol Arthritis Pain) ibuprofen 200 mg tablet 400 mg PO BID 05/21/25 05/21/25 Previous Rx's ?Medication ?Instructions ?Recorded escitalopram oxalate 10 mg tablet 20 mg (2 x 10 mg) PO DAILY #180 11/02/23 tabs diphenhydramine HCl 50 mg tablet 50 mg PO BEDTIME PRN allergic 12/02/23 (Benadryl Allergy) reaction #1 tab cyanocobalamin (vitamin B-12) 1,000 mcg IM QMONTH #1 mL 10/04/24 1,000 mcg/mL injection solution atorvastatin 80 mg tablet 80 mg PO DAILY #90 tabs 01/10/25 ipratropium bromide 42 mcg (0.06 2 spray intranasal ONCE PRN runny 01/10/25 %) nasal spray nose #15 mL Parking Placard #2 ea 05/21/25 Allergies Allergy/AdvReac Type Severity Reaction Status Date / Time azithromycin (From Zithromax Allergy Severe Anaphylaxis Verified 05/21/25 10:21 Z-Anthony) Penicillins Allergy Severe Anaphylaxis Verified 05/21/25 10:21 Iodinated Contrast Media Allergy Intermediate Fainting Verified 06/13/25 12:50 clarithromycin (From Biaxin) Allergy Verified 06/13/25 12:50 Sulfa (Sulfonamide Allergy Verified 06/13/25 12:50 Antibiotics) Review of Systems Review of Systems Narrative: GENERAL: Negative chills, fatigue, malaise, fever, sweats. HEENT: Negative sinus pain, ear pain, sore throat RESPIRATORY: Negative dyspnea, cough CARDIOVASCULAR: Negative chest pain, palpitations GASTROINTESTINAL: Negative vomiting, nausea, abdominal pain : Negative dysuria, frequency, hematuria MUSCULOSKELETAL: Negative muscle or bony pain SKIN: Negative rash, skin lesions NEUROLOGIC: Positive facial droop, weakness, negative numbness ROS Unobtainable: All systems reviewed & are unremarkable except as noted in HPI and below Hematologic/Lymphatic On Anticoagulants: No Patient History Medical History (Updated 06/20/25 @ 13:07 by Amadeo Rojas MD) Edema [place]'s disease Acute cholecystitis Anemia Liver mass Mass of right lung Prediabetes Hyperlipidemia Osteopenia (~11/2021) Rosacea Osteoporosis Kidney stones Hypertension (~1995) Monoallelic mutation of PDE11A gene Aneurysm Pernicious anemia History of anemia due to vitamin B12 deficiency History of pernicious anemia History of stroke History of Bobby disease Surgical History Anesthesia History of hysterectomy (~1977) History of parotidectomy (~1978) History of laparoscopic cholecystectomy (~2022) History of intracranial aneurysm History of adrenal surgery (~1996) Family History Father Congestive heart failure Mother Pheochromocytoma Cancer Sister Cancer Social History household members: spouse alcohol intake: current Smoking Status: Never smoker alcohol intake frequency: holidays/special occasions only Exam Narrative Exam Narrative: GENERAL: in no distress, not toxic not dyspneic HEAD: Normocephalic. EYES: Pupils equal round ENT: Mucous membranes moist. NECK: Trachea midline. CARDIOVASCULAR: Regular rate and rhythm RESPIRATORY: Clear to auscultation. Breath sounds equal bilaterally. No wheezes, rales, or rhonchi. GASTROINTESTINAL: Abdomen soft, non-tender EXTREMITIES: No gross deformities. BACK: No flank tenderness. NEURO: AOx4. Clear speech, no facial droop. Fast exam is negative Strong equal informatics physician liaison negative pronator drift elevate each leg without drift. [id number] intact bilaterally light touch intact bilateral face hands and legs SKIN: Warm and dry PSYCH: Not anxious, is cooperative Initial Vital Signs Initial Vital Signs: Vital Signs Temperature 98.5 F 06/13/25 12:41 Pulse Rate 70 06/13/25 12:41 Respiratory Rate 18 06/13/25 12:41 Blood Pressure 112/57 L 06/13/25 12:41 Pulse Oximetry 97 06/13/25 12:41 Oxygen Delivery Method Room Air 06/13/25 12:41 Scores NIH Stroke Scale Level of Conciousness: Alert, keenly responsive Ask month/age: Answers both questions correctly. Open/close eyes, close hand: Performs both tasks correctly Best gaze horizontal: Normal Visual rascon: No visual loss Facial palsy: Normal symetrical movement Left arm drift: No drift for full 10 sec Right arm drift: No drift for full 10 sec Left leg drift: No drift for full 5 sec Right leg drift: No drift for full 5 sec Limb ataxia: Absent Sensory on face/arms/legs: Normal, no sensory loss Best language: No aphasia, normal Dysarthria: Normal Extinction or inattention: No abnormality Total NIH Stroke scale score: 0 Course Orders Ordered: ED Orders 06/13/25 12:53 EKG-12 Lead Stat 06/13/25 14:02 Complete Blood Count AUTO DIFF Stat Comprehensive Metabolic Panel Stat PTT Partial Thromboplastin Navi Stat Prothrombin Time INR Stat Troponin & CK Cardiac Panel Stat 06/13/25 14:55 CT head/brain wo con Stat 06/13/25 15:27 Urinalysis and Microscopic Stat Vital Signs Vital signs: Vital Signs - 8 hr 06/13/25 12:41 06/13/25 13:07 06/13/25 13:08 Temperature 98.5 F Pulse Rate 70 63 Respiratory Rate 18 15 Blood Pressure 112/57 L 116/58 L Pulse Oximetry 97 97 Oxygen Delivery Method Room Air 06/13/25 13:08 06/13/25 13:30 06/13/25 13:30 Temperature Pulse Rate 65 60 Respiratory Rate 24 21 Blood Pressure 140/63 Pulse Oximetry 95 95 Oxygen Delivery Method 06/13/25 14:00 06/13/25 14:02 06/13/25 14:02 Temperature Pulse Rate 59 L 59 L Respiratory Rate 22 22 Blood Pressure 148/62 H Pulse Oximetry 93 95 Oxygen Delivery Method 06/13/25 14:30 06/13/25 14:30 06/13/25 15:00 Temperature Pulse Rate 58 L 58 L Respiratory Rate 24 21 Blood Pressure 140/62 Pulse Oximetry 93 95 Oxygen Delivery Method 06/13/25 15:00 06/13/25 15:29 06/13/25 15:29 Temperature Pulse Rate 57 L Respiratory Rate 21 Blood Pressure 162/66 H 152/63 H Pulse Oximetry 99 Oxygen Delivery Method 06/13/25 15:30 06/13/25 15:30 06/13/25 16:00 Temperature Pulse Rate 59 L 58 L Respiratory Rate 26 H 23 Blood Pressure 140/59 L Pulse Oximetry 96 97 Oxygen Delivery Method 06/13/25 16:01 06/13/25 16:01 Temperature Pulse Rate 58 L Respiratory Rate Blood Pressure 145/65 H Pulse Oximetry 97 Oxygen Delivery Method MDM - Neuro Symptoms/Deficit Lab Data 06/13/25 14:02 06/13/25 14:02 Labs: Lab Results 06/13/25 06/13/25 06/13/25 Range/Units 13:58 14:02 15:27 WBC 9.7 (4.5-11.0) X10^3/uL RBC 3.62 L (4.0-5.2) X10^6/uL Hgb 8.5 L (12.0-16.0) g/dL Hct 27.2 L (36-46) % MCV 75.2 L (80-100) fL MCH 23.5 L (26-34) PG MCHC 31.2 (30-36) % RDW 16.6 H (11.6-14.8) % Plt Count 312 (150-400) X10^3/uL Neut % (Auto) 74.3 (50-75) % Lymph % (Auto) 14.2 L (25-40) % Williams % (Auto) 9.3 (3-14) % Eos % (Auto) 1.7 L (2-4) % Baso % (Auto) 0.5 (0-2) % Neut # (Auto) 7200 H (3885-5760) /uL Lymph # (Auto) 1400 (9647-7952) /uL Williams # (Auto) 900 (0-900) /uL Eos # (Auto) 200 (0-450) /uL Baso # (Auto) 0 (0-100) /uL PT 11.2 (9.4-12.5) SECONDS INR 1.0 (0.9-1.3) APTT 28 (25.1-36.5) SECONDS Sodium 135 L (137-145) mmol/L Potassium 4.1 (3.4-5.1) mmol/L Chloride 101 (98-107) mmol/L Carbon Dioxide 31 (22-32) mmol/L BUN 26 H (7-17) mg/dL Creatinine 0.99 (0.52-1.04) mg/dL Estimated GFR 57 L (>60) mL/min BUN/Creatinine Ratio 26.3 H (6-22) Glucose 108 H (70-99) mg/dL POC Whole Bld Glucose 125 H (70-99) mg/dL Calcium 8.7 (8.4-10.2) mg/dL Total Bilirubin 0.4 (0.2-1.3) mg/dL AST 52 H (14-36) IU/L ALT 13 (<35) IU/L Alkaline Phosphatase 94 (38-126) U/L Total Creatine Kinase 40 (30-135) U/L Troponin I < 0.012 (0.01-0.034) ng/mL Total Protein 6.5 (6.3-8.2) g/dL Albumin 3.7 (3.5-5.0) g/dL Globulin 2.8 (1.7-4.1) g/dL Albumin/Globulin Ratio 1.3 (1.0-2.8) Urine Color Yellow Urine Appearance Clear Urine pH 6.5 (4.5-8.0) Ur Specific [place] <=1.005 (1.000-1.035) Urine Protein Negative (Negative) Urine Glucose (UA) Negative (Negative) g/dL Urine Ketones Negative (NEGATIVE) Urine Occult Blood Negative (Negative) Urine Nitrate Negative (Negative) Urine Bilirubin Negative (NEGATIVE) Urine Urobilinogen 0.2 (0.2) E.U./dL Ur Leukocyte Esterase Negative (NEGATIVE) Urine RBC None seen (0-5/HPF) Urine WBC None seen (0-5/HPF) Ur Squamous Epith Cells None seen (0-5/HPF) Amorphous Sediment 1+ Urine Bacteria None seen (None) Ur Culture Indicated? Cult not indicated Vol Urine Centrifuged 10ml (spun) [facility] Narrative Medical decision making narrative: Patient here with a friend. Onset 1.5 hours ago at 1:00 p.m. sudden onset of left facial droop and right upper extremity tingling. Patient does state sometimes his left eye feels dry. Patient denies any history heart attack strokes or diabetes no history of Kramer's palsy. 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 Patient denies any chest pain back pain abdominal pain. After history and exam, CBC CMP analysis EKG troponin PT INR PTT CT head, patient has contrast allergy [facility] Medical records reviewed: No recent visit for this complaint Differential considered: Includes but not limited to seizure stroke [facility] Parkinson[facility] Test results independently reviewed as above. Pertinent findings: Laboratory studies do show results at baseline, including CBC and CMP. WBC 9.7 hemoglobin 8.5 hematocrit 27 INR 1.0 sodium 135 potassium 4.1 BUN 26 creatinine 0.99 glucose 108 troponin less than 0.012 urinalysis negative ketones negative leukocyte esterase negative nitrate Independently reviewed EKG normal sinus rhythm normal EKG rate 65 Imaging studies independently reviewed: CT head no acute finding Consultations: 4:30 p.m.. I spoke with primary care, Dr. Amadeo Rojas, we have reviewed results and exam and workup together, at this time no indication for admission. He will see patient tomorrow for follow up and continue evaluation and referrals. He will or outpatient MRI of the brain. None needed tonight. Re-evaluations: 5:42 p.m.. Updated patient and daughter results. My discussion with primary care as well. They agree with treatment plan. They understand there is further workup to be done through the office setting. Return precautions reviewed. They desire discharge home. Discussion: Appropriate for discharge home. Exam is reassuring. Return precautions reviewed with patient and family. Primary care was contacted as well for continuity of care and follow up. Patient had no focal neuro deficits here. NIH score of 0. Diagnosis: Weakness, muscular spasms Discharge Plan Departure Patient Disposition: Home Clinical Impression: Muscle spasm, Generalized muscle weakness Instructions: DI for Muscle Weakness, DI for Muscle Spasm Activity Restrictions/Additional Instructions: Your exam and laboratory studies are reassuring. Your primary care provider was contacted today and would like to see you tomorrow for re-evaluation. Outpatient MRI will be ordered for the brain through your primary care provider. Return if worse if any questions or concerns. Continue home medications. Prescriptions: No Action Benadryl Allergy 50 mg tablet 50 mg PO BEDTIME PRN (Reason: allergic reaction) Qty: 1 0RF Rx Instructions: 50mg by mouth 1 hour prior to exam cyanocobalamin (vitamin B-12) 1,000 mcg/mL solution 1,000 mcg IM QMONTH Qty: 1 0RF metoprolol succinate 25 mg tablet extended release 24 hr 25 mg PO ONCE PM lisinopril 10 mg tablet 10 mg PO DAILY hydrochlorothiazide 25 mg tablet 25 mg PO DAILY atorvastatin 80 mg tablet 80 mg PO DAILY Qty: 90 3RF ipratropium bromide 42 mcg (0.06 %) spray,non-aerosol 2 spray intranasal ONCE PRN (Reason: runny nose) Qty: 15 0RF Rx Instructions: administer into each nostril acetaminophen [Tylenol Arthritis Pain] 650 mg tablet extended release 650 mg PO Q12H ibuprofen 200 mg tablet 400 mg PO BID Patient Comments: with Tylenol arthritis (DME) Parking Placard See Rx Instructions .Route .MEDSUPPLY Qty: 2 0RF Rx Instructions: As directed escitalopram oxalate 10 mg tablet 20 mg PO DAILY Qty: 180 3RF nystatin 100,000 unit/gram powder 1 applic topical leuprolide 3.75 mg injectable IM Patient Comments: Pt does not know the dose but does get this every 8 weeks lorazepam 0.5 mg tablet 0.5 mg PO TID PRN (Reason: Anxiety/Sleep) Patient Comments: take 1 tablet by mouth up to three times a day if needed for anxiety Referrals: Amadeo Rojas MD [Primary Care Provider, Family Practice] Stand Alone Forms: Patient Portal/API
[2025-06-13 15:02] LABS: Add Manual Diff / Slide Review NO; Hematocrit 27.2 % (36-46); Hemoglobin 8.5 g/dL (12.0-16.0); Lymphocytes Absolute Auto 1400 /uL (1100-4500); Mean Corpuscular HGB Conc 31.2 % (30-36); Mean Corpuscular Hemoglobin 23.5 PG (26-34); Mean Corpuscular Volume 75.2 fL (80-100); Platelet Count 312 X10^3/uL (150-400)
[2025-06-13 15:04] LABS: INR 1.0 (0.9-1.3); Prothrombin Time 11.2 SECONDS (9.4-12.5)
[2025-06-13 15:06] LABS: PTT Partial Thromboplastin Tim 28 SECONDS (25.1-36.5)
[2025-06-13 15:11] LABS: Alanine Aminotransferase 13 IU/L (<35); Albumin 3.7 g/dL (3.5-5.0); Albumin Globulin Ratio 1.3 (1.0-2.8); Alkaline Phosphatase 94 U/L (38-126); Blood Urea Nitrogen 26 mg/dL (7-17); Calcium 8.7 mg/dL (8.4-10.2); Carbon Dioxide 31 mmol/L (22-32); Chloride 101 mmol/L (98-107); Creatine Kinase 40 U/L (30-135); Estimated Glomerular Filt Rate 57 mL/min (>60); Globulin 2.8 g/dL (1.7-4.1); Glucose 108 mg/dL (70-99); HEMOLYSIS < 15 (0-50); Potassium 4.1 mmol/L (3.4-5.1); Sodium 135 mmol/L (137-145); Total Protein 6.5 g/dL (6.3-8.2)
[2025-06-13 15:22] LABS: Troponin I < 0.012 ng/mL (0.01-0.034)
[2025-06-13 15:43] LABS: Appearance Urine UA CLEAR; Bilirubin Urine UA NEGATIVE (NEGATIVE); Color Urine UA YELLOW; Glucose Urine UA NEGATIVE (Negative); Ketones Urine UA NEGATIVE (NEGATIVE); Leukocyte Esterase Urine UA NEGATIVE (NEGATIVE); Nitrite Urine UA NEGATIVE (Negative); Occult Blood Urine UA NEGATIVE (Negative); Protein Urine UA NEGATIVE (Negative); Specific Gravity Urine UA <=1.005 (1.000-1.035); Urobilinogen Urine UA 0.2 E.U./dL (0.2)
[2025-06-13 15:44] LABS: pH Urine UA 6.5 (4.5-8.0)
[2025-06-13 15:48] LABS: Culture Indicated Urine Cult Not Indicated
== END 2025-06-13 18:00 | disposition home or self-care (01) ==
PROVIDERS: Emergency Provider Emergency Medicine; PCP Family Medicine
DX: R29.810 Facial weakness (principal); R53.1 Weakness; M62.838 Other muscle spasm; Z86.73 Personal history of transient ischemic attack (TIA), and cerebral infarction without residual deficits; Z86.79 Personal history of other diseases of the circulatory system
CPT/HCPCS: 70450; 80053; 81001; 82550; 82962; 84484; 85025; 85610; 85730; 93005; 99284

== ENCOUNTER → 2025-06-20 12:17 | Outpatient (CLI) | payer MEDICARE, SELFPAY ==
[2024-10-03 23:04] VITALS: BMI 24.7
[2025-06-20 13:36] LABS: Add Manual Diff / Slide Review NO; Hematocrit 28.2 % (36-46); Hemoglobin 9.1 g/dL (12.0-16.0); Lymphocytes Absolute Auto 1500 /uL (1100-4500); Mean Corpuscular HGB Conc 32.1 % (30-36); Mean Corpuscular Hemoglobin 23.9 PG (26-34); Mean Corpuscular Volume 74.4 fL (80-100); Platelet Count 304 X10^3/uL (150-400)
[2025-06-20 13:48] LABS: HEMOLYSIS < 15 (0-50); Iron 46 ug/dL (37-170)
[2025-06-20 13:59] LABS: Percent Iron Saturation 12 % (15-50); Total Iron Binding Capacity 386 ug/dL (265-497)
[2025-06-20 14:25] LABS: Ferritin 14 ng/mL (11-264)
[2025-06-20 14:40] LABS: Vitamin B12 > 1000 pg/mL (239-931)
[2025-06-21 00:38] LABS: Transferrin 308 mg/dL (206-381)
== END ==
PROVIDERS: PCP Family Medicine; Referring Provider Family Medicine; Visit Provider Family Medicine
DX: I15.2 Hypertension secondary to endocrine disorders (principal)
CPT/HCPCS: 36415; 82607; 82728; 83540; 83550; 85025

== ENCOUNTER → 2025-07-05 18:29 | Outpatient (CLI) | payer MEDICARE, SELFPAY ==
[2024-10-03 23:04] VITALS: BMI 24.7
--- NOTE | 2025-07-05 18:31 | DI.MRI.S_ITS ---
PROCEDURE: MR ANGIO HEAD WO CON INDICATIONS: aneurysm, annual follow up imaing TECHNIQUE: Noncontrast axial 3-D [id number] MR angiogram, with 3-dimensional maximum intensity projection (MIP) reformats of the internal carotid arteries and posterior circulation then performed. COMPARISON: Outside Facility, RG, MRA NECK W/O CONTRAST, 12/23/2022, 16:12. [facility], , MR ANGIO HEAD WO CON, 06/04/2024, 11:47. FINDINGS: Image quality: Excellent. Anterior circulation: There is focal dilatation of the left high cervical extracranial internal carotid artery, measuring roughly 80 mm as before. Intracranial internal carotid arteries demonstrate normal size and intraluminal flow signal. The flow within the paired anterior cerebral arteries is normal and symmetric. The flow within the middle cerebral arteries is normal and symmetric. The anterior communicating artery is seen. No stenoses, occlusions, or aneurysms. Posterior circulation: Visualized portions of the vertebral arteries demonstrate normal caliber, and join to form a normal appearing basilar artery. The flow within the posterior cerebral arteries is normal and symmetric. No stenoses, occlusions, or aneurysms. 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 Dictated by: Janett Burgess M.D. on 07/08/2025 at 11:39 Approved by: Janett Burgess M.D. on 07/08/2025 at 11:43
--- NOTE | 2025-07-05 18:31 | DI.MRI.S_ITS ---
PROCEDURE: MR HEAD/BRAIN WO CON INDICATIONS: aneurysm, annual follow up imaing TECHNIQUE: Non-contrast axial T1 spin echo, axial T2 fast spin echo, sagittal and axial FLAIR, coronal T2 fast spin echo, axial gradient echo, axial diffusion and ADC through the brain. COMPARISON: [facility], MR, MR HEAD/BRAIN WO CON, 06/04/2024, 11:32. FINDINGS: Image quality: Excellent. CSF spaces: Ventricles appear symmetric in size and shape. Basal cisterns are patent. No extra-axial fluid collections. Brain: No intracranial bleeds or mass effects. There is cerebral volume loss for age. There are periventricular and deep white matter chronic small vessel ischemic changes. Brainstem appears normal. Diffusion-weighted images show no acute infarct. No chronic ischemic insults. Normal intravascular flow voids are present. No evidence of aneurysm by non angiographic examination. Skull and face: Calvarial bone marrow is normal in signal. Orbits are normal. Sinuses: Sinuses and mastoids are clear. IMPRESSION: 1. Volume loss and small vessel ischemic disease. 2. No acute process. No recent infarct. Dictated by: Janett Burgess M.D. on 07/08/2025 at 11:38 Approved by: Janett Burgess M.D. on 07/08/2025 at 11:39
== END ==
LOC: MRI 18:30
PROVIDERS: PCP Family Medicine; Referring Provider Family Medicine; Visit Provider Family Medicine
DX: I72.0 Aneurysm of carotid artery (principal)
CPT/HCPCS: 70544; 70551

== ENCOUNTER → 2025-07-10 09:07 | Outpatient (CLI) | payer MEDICARE, SELFPAY ==
[2024-10-03 23:04] VITALS: BMI 24.7
--- NOTE | 2025-07-10 09:07 | DI.ECHO.S_ITS ---
:Name: KALEB SANCHEZ Study Date: 07/10/2025 Height: 62 in : :Hospital Reading Location: Weight: 150 lb : : Gender: Female BSA: 1.7 m2 : :: 1940 Age: 84 yrs BP: 145/77 mmHg: :Reason For Study: CORONARY ARTERY DISEASE : :Ordering Physician: MARSHA DODSON Performed By: Deb Berry : :Referring: MARSHA DODSON : + + Interpretation Summary The patient was in sinus bradycardia with heart rates between 52-64 bpm during the exam. The ejection fraction is estimated to be 60-65%. Grade II diastolic dysfunction with elevated left atrial pressure. The left atrium is borderline dilated. The right ventricle is normal in size and function. There is mild tricuspid regurgitation. The right ventricular systolic pressure is estimated to be at least 39 mmHg based on an estimated right atrial pressure of 3 mm Hg. Procedure: A two-dimensional transthoracic echocardiogram with color flow and Doppler was performed. The study quality was technically adequate. There is no prior echocardiogram noted for this patient. The patient was in sinus bradycardia with heart rates between 52-64 bpm during the exam. Left Ventricle: The left ventricle is normal in size. There is normal left ventricular wall thickness. The ejection fraction is estimated to be 60-65%. Grade II diastolic dysfunction with elevated left atrial pressure. Right Ventricle: The right ventricle is normal in size and function. Atria: The left atrium is borderline dilated. Right atrial size is normal. There is no Doppler evidence for an interatrial shunt. Mitral Valve: The mitral valve leaflets are mildly calcified. There is mild mitral annular calcification. There is trace mitral regurgitation. Aortic Valve: The aortic valve is trileaflet. The aortic valve opens well. There is no aortic valve stenosis. No aortic regurgitation is present. Tricuspid Valve: The tricuspid valve leaflets are thin and pliable. There is mild tricuspid regurgitation. The right ventricular systolic pressure is estimated to be at least 39 mmHg based on an estimated right atrial pressure of 3 mm Hg. Pulmonic Valve: The pulmonic valve leaflets are thin and pliable; valve motion is normal. There is trace pulmonic regurgitation. Great Vessels: The aortic root is normal size. The dimensions of the ascending aorta are normal. The IVC is of normal diameter and collapses greater than 50% with a sniff. This suggests a low right atrial pressure of 3 mm Hg. Pericardium/ Pleura There is no pericardial effusion. There is no pleural effusion. MMode/2D Measurements & Calculations LVIDd: 4.3 cm LVOT diam: 1.9 cm LVIDs: 2.6 cm Ao root diam: 3.0 cm FS: 38.6 % asc Aorta Diam: 2.9 cm EPSS: 0.99 cm Ao Arch Diam (Prox Trans): 2.5 cm IVSd: 1.0 cm LVPWd: 0.91 cm LV arshad. diameter/BSA (cm/m^2): 2.5 LV sys. diameter/BSA (cm/m^2): 1.5 LA A2 area: 20.7 cm2 RA long axis: 5.3 cm LA A4 area: 16.8 cm2 RA area: 13.9 cm2 LA length (vol): 5.1 cm RA vol: 31.1 ml LA vol: 58.3 ml RA : 18.4 ml/m2 LA vol index: 34.5 ml/m2 IVC diam: 1.3 cm RVD1 (basal): 3.3 cm RVD2 (mid): 2.9 cm TAPSE: 1.8 cm Doppler Measurements & Calculations Ao V2 max: 163.3 cm/sec LVOT Max Дмитрий: 117.9 cm/sec Ao V2 mean: 111.4 cm/sec LV V1 max P.6 mmHg Ao max P.7 mmHg LV V1 VTI: 28.3 cm Ao mean P.6 mmHg TRACI(I,D): 2.2 cm2 Ao V2 VTI: 38.9 cm TRACI(V,D): 2.2 cm2 sev ratio: 0.73 TRACI indexed to BSA (cm^2/m^2): 1.3 MV E max дмитрий: 105.7 cm/sec TR max дмитрий: 301.7 cm/sec MV A max дмитрий: 138.3 cm/sec TR max P.4 mmHg MV E/A: 0.76 PA V2 max: 100.2 cm/sec Med Peak E' Дмитрий: 5.1 cm/sec PA V2 mean: 65.6 cm/sec E/E' med: 20.6 PA mean P.9 mmHg Lat Peak E' Дмитрий: 5.4 cm/sec PA pr(Accel): 37.9 mmHg E/E' lat: 19.5 E/e' average: 20.0 MV dec time: 0.28 sec SV(LVOT): 84.3 ml Reading Physician:12:33 PM
--- NOTE | 2025-07-10 09:08 | DI.NM.S_ITS ---
PROCEDURE: NM DOMENICA PERF SPECT R&S PHARM Rest and pharmacological stress myocardial perfusion SPECT with gated imaging and ejection fraction RADIOPHARMACEUTICAL: 25.8mCi Tc-99m tetrafosmin IV at rest and 26.5 mCi Tc-99m tetrafosmin IV at peak effect of pharmacological stress. [id number] was performed. INDICATIONS: Coronary artery disease TECHNIQUE: Radiopharmaceutical was injected at peak stress test, and also at rest. SPECT images were obtained. SPECT myocardial perfusion images were displayed in short axis, horizontal long axis, and vertical long axis views. Gated images were reviewed using [employer] software. COMPARISON: None. CARDIAC STRESS: A pharmacologic stress test was performed under the supervision of an attending staff, using an infusion of regadenoson 0.4 mg IV. Hemodynamic data: There is normal blood pressure and heart rate response to pharmacologic stress. Symptoms: The patient denied anginal chest pain. EKG: No diagnostic changes of ischemia; no ectopy. FINDINGS: Raw data: There is good myocardial uptake of radiotracer. No significant motion artifacts.. Left ventricle function: Gated images demonstrate normal left ventricular wall thickening. No segmental wall motion abnormalities. No transient ischemic dilation; TID is 1.04 (normal less than 1.3). Left ventricle resting end diastolic volume is 60 mL. Left ventricle stress ejection fraction is >75%; normal range is above 45%. Myocardial perfusion: There is normal distribution of activity in the right and left ventricular myocardium. No fixed or reversible perfusion defects. IMPRESSION: Low risk study. No evidence of pharmacologic induced ischemia or scar. Normal LV size with hyperdynamic function. Dictated by: Marsha Dodson D.O. on 07/11/2025 at 16:58 Approved by: Marsha Dodson D.O. on 07/11/2025 at 17:00
== END ==
LOC: ECHO 09:07
PROVIDERS: PCP Family Medicine; Referring Provider Internal Medicine Cardiovascular Disease; Visit Provider Internal Medicine Cardiovascular Disease
DX: I25.10 Atherosclerotic heart disease of native coronary artery without angina pectoris (principal); R60.0 Localized edema; I07.1 Rheumatic tricuspid insufficiency
CPT/HCPCS: 78452; 93017; 93306; A9502; J2785

== ENCOUNTER → 2025-08-15 11:30 | Outpatient (CLI) | payer MEDICARE, SELFPAY ==
[2024-10-03 23:04] VITALS: BMI 24.7
--- NOTE | 2025-08-15 11:31 | DI.RAD.S_ITS ---
PROCEDURE: XR CHEST 2V INDICATIONS: cough TECHNIQUE: 2 views of the chest were acquired. COMPARISON: [facility], CR, XR CHEST 1V, 03/29/2025, 19:35. FINDINGS: Heart, mediastinum and pulmonary vascular: Heart is normal in size and configuration. Mediastinum is unremarkable. Pulmonary vascular is normal. Lungs: Small patchy infiltrates have developed in both lower lobes- more prominent the left Pleural spaces: Small bilateral effusions IMPRESSION: Mild bilateral lower lobe infiltrates. Suspect aspiration or infection Dictated by: Caleb Pastrana M.D. on 08/16/2025 at 6:36 Approved by: Caleb Pastrana M.D. on 08/16/2025 at 6:38
[2025-08-15 12:21] LABS: Add Manual Diff / Slide Review NO; Hematocrit 31.4 % (36-46); Hemoglobin 10.3 g/dL (12.0-16.0); Lymphocytes Absolute Auto 800 /uL (1100-4500); Mean Corpuscular HGB Conc 32.8 % (30-36); Mean Corpuscular Hemoglobin 26.3 PG (26-34); Mean Corpuscular Volume 80.0 fL (80-100); Platelet Count 190 X10^3/uL (150-400)
[2025-08-15 12:38] LABS: Anisocytosis 1+; Poikilocytosis 1+
[2025-08-15 12:39] LABS: Alanine Aminotransferase 12 IU/L (<35); Albumin 3.7 g/dL (3.5-5.0); Albumin Globulin Ratio 1.4 (1.0-2.8); Alkaline Phosphatase 103 U/L (38-126); Blood Urea Nitrogen 25 mg/dL (7-17); Calcium 9.2 mg/dL (8.4-10.2); Carbon Dioxide 27 mmol/L (22-32); Chloride 97 mmol/L (98-107); Estimated Glomerular Filt Rate 53 mL/min (>60); Globulin 2.6 g/dL (1.7-4.1); Glucose 81 mg/dL (70-99); HEMOLYSIS 16 (0-50); Potassium 3.9 mmol/L (3.4-5.1); Sodium 134 mmol/L (137-145); Total Protein 6.3 g/dL (6.3-8.2)
[2025-08-15 14:11] LABS: Appearance Urine UA CLEAR; Bilirubin Urine UA NEGATIVE (NEGATIVE); Color Urine UA YELLOW; Glucose Urine UA NEGATIVE (Negative); Ketones Urine UA NEGATIVE (NEGATIVE); Leukocyte Esterase Urine UA TRACE (NEGATIVE); Nitrite Urine UA NEGATIVE (Negative); Occult Blood Urine UA NEGATIVE (Negative); Protein Urine UA NEGATIVE (Negative); Specific Gravity Urine UA 1.010 (1.000-1.035); Urobilinogen Urine UA 0.2 E.U./dL (0.2)
[2025-08-15 14:13] LABS: pH Urine UA 5.5 (4.5-8.0)
[2025-08-15 14:21] LABS: Culture Indicated Urine Specimen Cultured
== END ==
PROVIDERS: PCP Family Medicine; Referring Provider Family Medicine; Visit Provider Family Medicine
DX: R50.9 Fever, unspecified (principal); R53.1 Weakness; R91.8 Other nonspecific abnormal finding of lung field
CPT/HCPCS: 36415; 71046; 80053; 81001; 85025; 87086

== ENCOUNTER → 2025-10-21 10:36 | Outpatient (CLI) | payer MEDICARE, SELFPAY ==
[2024-10-03 23:04] VITALS: BMI 24.7
[2025-10-21 12:00] LABS: Blood Urea Nitrogen 15 mg/dL (7-17); Calcium 9.5 mg/dL (8.4-10.2); Carbon Dioxide 30 mmol/L (22-32); Chloride 102 mmol/L (98-107); Estimated Glomerular Filt Rate > 60 mL/min (>60); Glucose 88 mg/dL (70-99); HEMOLYSIS < 15 (0-50); Potassium 4.5 mmol/L (3.4-5.1); Sodium 138 mmol/L (137-145)
== END ==
PROVIDERS: PCP Family Medicine; Referring Provider Internal Medicine Endocrinology, Diabetes & Metabolism; Visit Provider Internal Medicine Endocrinology, Diabetes & Metabolism
DX: N17.9 Acute kidney failure, unspecified (principal)
CPT/HCPCS: 36415; 80048